=== PATIENT | male | born 1945 | race Caucasian/White ===

== ENCOUNTER → 2018-03-28 10:59 | Outpatient (CLI) | payer MEDICARE, OTHER, SELFPAY ==
--- NOTE | 2018-03-28 11:08 | RAD_ITS ---
STUDY: X-RAY - LUMBAR SPINE REASON FOR EXAM: Male, 72 years old. Pain radiating to left leg TECHNIQUE: Side view(s) of the lumbar spine were obtained. COMPARISON: None FINDINGS: Normal lumbar lordosis. There is no substantial scoliosis. There is a minimal degree of spondylolisthesis at L4-5. Mild degenerative changes of the vertebral bodies with spurring at the endplates. Normal disc space heights. The soft tissue structures are unremarkable. Vascular calcifications. RAD/L/S Spine Min 4 Views IMPRESSION: Degenerative changes of the lumbar spine. Minimal spondylolisthesis at L4-5. Correlate with MRI if clinically indicated. Electronically Signed: Candido Conteh DO at 9:30 EST Tel [phone], Service support ,
--- OUTSIDE RECORDS SUMMARY | 2018-05-23 09:09 | XMS RPT_ITS ---
:1945 Author Organization [facility] Care Team Providers Name Role Phone Elinor Wang Attending Unavailable Estephanie Ramirez Referring Unavailable Toñito Elizabeth Attending Unavailable Toñito Elizabeth Referring Unavailable Priya PATEL-CEstephanie Primary Care Unavailable PROBLEMS PROBLEMS No Problem Records FoundPROCEDURES PROCEDURES No Procedure Records FoundRESULTS RESULTS L/S SPINE MIN 4 Observed: 03/28/2018 Status: F Source: [place]IE[facility] 11:09 AM REPOSITORY [facility] Imaging Services [address] [place] [address] L/S Spine Min 4 Views MR#: [id number] Acct: [id number] Name: CHUCHO AUGUSTIN Rep #: [id number] : 1945 M 72 From: Candido Conteh DO PCP: Estephanie Ramirez Status: REG CLI Study: L/S Spine Min 4 Views Date of Exam: 03/28/18 Exam# [id number] Ordering Dr: Toñito Elizabeth MD STUDY: X-RAY - LUMBAR SPINE REASON FOR EXAM: Male, 72 years old. Pain radiating to left leg TECHNIQUE: Side view(s) of the lumbar spine were obtained. COMPARISON: None FINDINGS: Normal lumbar lordosis. There is no substantial scoliosis. There is a minimal degree of spondylolisthesis at L4-5. Mild degenerative changes of the vertebral bodies with spurring at the endplates. Normal disc space heights. The soft tissue structures are unremarkable. Vascular calcifications. RAD/L/S Spine Min 4 Views IMPRESSION: Degenerative changes of the lumbar spine. Minimal spondylolisthesis at L4-5. Correlate with MRI if clinically indicated. Electronically Signed: Candido Conteh DO at 9:30 EST Tel [phone], Service support , CC: Toñito Elizabeth; Estephanie Powers NUCLEAR STATION OPERATOR-C Visual Designer: Signed OFFICE VISIT REPORT Observed: 02/23/2018 Status: F Source: [place] 5:10 PM [place] [id number] 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 Required: No Accompanied by: Self Allergies No Known Allergies Allergy (Unverified 02/13/18 10:43) Medications ascorbic acid (vitamin C) 500 mg capsule mg PO cap 02/13/18 [History Confirmed 02/13/18] cholecalciferol (vitamin D3) 5,000 unit capsule 5,000 unit PO DAILY 02/13/18 [History Confirmed 02/13/18] glipizide 10 mg tablet 10 mg PO BID 02/13/18 [History Confirmed 02/13/18] insulin glargine (U- 100) 100 unit/mL subcutaneous solution 75 unit SC BID ml 02/13/18 [History Confirmed 02/13/18] levothyroxine 200 mcg tablet 200 mcg PO DAILY 02/13/18 [History Confirmed 02/13/18] meloxicam 7.5 mg tablet 7.5 mg PO DAILY 02/13/18 [History Confirmed 02/13/18] metformin 500 mg tablet 500 mg PO BID 02/13/18 [History Confirmed 02/13/18] metoprolol tartrate 25 mg tablet 25 mg PO BID 02/13/18 [History Confirmed 02/13/18] wlfbvkhg-ugl-plvgi acid 300 mcg-lycopene 600 mcg-lutein 300 mcg tablet 1 tab PO DAILY 02/13/18 [History Confirmed 02/13/18] omeprazole 20 mg capsule,delayed release 20 mg PO DAILY 02/13/18 [History Confirmed 02/13/18] rosuvastatin 10 mg tablet 10 mg PO DAILY 02/13/18 [History Confirmed 02/13/18] PFSH Medical History Arthritis (Acute) Back problem (Acute) H/O malignant neoplasm of thyroid (Acute) Hypothyroidism (Acute) Type 2 diabetes mellitus (Acute) Surgical History H/O thyroidectomy (Acute) Social History Smoking Status: Current every day smoker alcohol intake: current substance use type: does not use Questionnaire Depression Screen PHQ-2/9 PHQ-2 Over the last 2 weeks, how often have you been bothered by any of the following problems? 1. Little interest or pleasure in doing things: nearly every day 2. Feeling down, depressed, or hopeless: not at all Total score: 3 If score is 2 or greater, continue 3. Trouble falling or staying asleep, or sleeping too much: more than half the days 4. Feeling tired or having little energy: more than half the days 5. Poor appetite or overeating: not at all 6. Feeling bad about yourself - or that you are a failure or have let yourself and your family down: not at all 7. Trouble concentrating on things, such as reading the newspaper or watching television: not at all 8. Moving or speaking so slowly that other people could have noticed? - Or the opposite - being so fidgety or restless that you have been moving around a lot more than usual: not at all 9. Thoughts that you would be better off or of hurting yourself in some way: not at all Total score: 7 If you checked off any problems, how difficult have these problems made it for you to do your work, take care of things at home, or get along with other people?: not difficult at all Source: Developed by Drs. Otf Phillips, Jeni Degroot, Efren Burns and colleagues, with an educational oscar from [employer]. Scoring: Total Score Depression Severity Action 1-4 Minimal depression No action needed 5-9 Mild depression Repeat PHQ-9 at follow up 10-14 Moderate depression Make tx plan,consider counseling, fup, prescription HPI HPI Chief Complaint: abnormal thyroid labs Details: CHUCHO AUGUSTIN, is a 72 M who presents to the office today for consult of thyroid. Has a history of hypothyroidism. currently followed at [facility] and referred here. He has seen Dr. Madden in past. Currently patient takes levothyroxine 200mcg daily. Reports he takes on empty stomach and does not take within 4 hours of calcium,iron, vitamins, or antacids. Does not miss any doses. Severity, modifying factors, context, and associated signs and symptoms are as follows: Thyroid pain: No Energy: normal Sleep: awakened refreshed Temp: No intolerance GI: Normal bowel Weight: Flucuates Eyes: No change in vision Memory: unchanged Diaphoresis: Not significant Skin: Dry Hair : Unchanged Neuro: No numbness, tingling or tremors Muscles aches occ. At time of visit: -Pt denies symptoms of hypertensive emergency (CP,SOB,SOLIZ, or blurred vision) and hypotension(dizziness or lightheadedness) -Pt denies symptoms of hypoglycemia ( sweaty, confusion, anxiety, tremor, hunger, palpitations) and hyperglycemia ( polydipsia, polyuria) -Pt denies potential medication adverse effect. ROS Const Constitutional: No anorexia, body ache, chills, fatigue, fever(s), frequent falls, decreased energy, malaise, night sweats, weakness, weight change, sleep problems, abnormal sleep pattern, change in appetite, other, headache(s), snoring or excessive sweating Eyes Eyes: No blurry vision, change in vision, double vision, discharge, dry eyes, bulging eyes, floaters, visual disturbances, eye pain, light sensitivity, spots in vision, tunnel vision or other ENT ENT: No abnormal hearing, ear pain, ear discharge, ear pressure, hearing loss, tinnitus, dizziness/vertigo, balance problems, nosebleed/epistaxis, nasal congestion, nasal obstruction, nose pain, sinus pressure, sinus pain, nasal discharge, post nasal drip, headache(s), facial pain, dental pain, dry mouth, bad breath, hoarseness, lip swelling, mouth lesions, mouth pain, sore throat, tongue swelling, throat swelling, other, difficulty swallowing or neck pain Resp Respiratory: No cough, change in phlegm color, chest congestion, excessive phlegm production, hemoptysis, pain on inspiration, shortness of breath, pain with cough, snoring, stridor, wheezing or other Cardio Cardiology: No chest pain at rest, chest pain with exertion, leg pain with exertion, excessive sweating, shortness of breath, dyspnea on exertion, generalized swelling, irregular heart rhythm, lightheadedness, orthopnea, radiating jaw, neck or arm pain, fast heart rate, slow heart rate, palpitations or other Gastro GI: No abdominal pain, belching, bloating, change in bowel habits, change in stool character, coffee ground emesis, constipation, cramping, diarrhea, heartburn, difficulty swallowing, feeling full early, excessive flatus, incontinent of stools, Vomiting blood/hematemesis, blood in stool, loose stools, Black,tarry stools, nausea/dyspepsia, pain with swallowing, vomiting or other Genitourinary Male: No difficulty urinating, burning urination, painful urination, urinary incontinence, urinary frequency, urinary urgency, urinary hesitancy, urinary retention, blood in urine, Frequent nighttime urination/ nocturia, post void dribbling, suprapubic fullness, side pain, sexual problems, genital lesions, genital itching, erectile dysfunction, penile discharge, difficulty with ejaculations, blood in semen, scrotal swelling, testicle lump, testicle pain or other Musc Musculoskeletal: No abnormal walking, joint pain, back pain, deformity, joint swelling, limited range of motion, loss of height, muscle cramps, muscle weakness, decreased muscle mass, body aches, neck pain, numbness, radiating pain into limb, stiffness, tingling or other Skin Skin: Positive for hair loss; no acne, change in hair, nail changes, boil, change in skin color, dry skin, redness, excessive hair growth, yellowing of the skin, lesions, itching, rash, skin pain, skin ulcer, sores, skin swelling, wounds or other Breast Breast: No other Neuro Neurology: No frequent falls, weakness, visual disturbances, abnormal hearing, headache(s), abnormal walking, numbness or tingling Psych Psychiatric: No abnormal sleep pattern, No change in appetite Endo Endocrine: No fatigue, other or excessive sweating Aller/Imm Allergy/Immunologic: No lip swelling, tongue swelling, throat swelling, wheezing or itchy eyes Exam Const General: comfortable, well groomed Nutritional Appearance: well nourished Orientation: [facility] x3 [facility]: normal to inspection, atraumatic Ears: hearing grossly normal bilaterally Nose: external nose normal Face and sinus: normal facial exam Mouth: oral mucosae normal, moist mucous membranes Teeth and gingiva: dentition normal Eyes General: appearance normal, both eyes and all related structures Conjunctivae: conjunctivae normal Sclera: sclerae normal Cornea: corneas normal Neck Neck: normal visual inspection Neck mass: No Thyroid: thyroid normal Resp Effort AND Inspection: normal respiratory effort, able to speak in complete sentences, symmetric chest movement Auscultation: Bilateral: Clear to Auscultation Cardio Rate: regular rate Rhythm: regular rhythm Heart Sounds: S1 normal, S2 normal GI Inspection: normal to inspection Auscultation: normal bowel sounds Musc Musculoskeletal: No muscle weakness Skin General: dry skin, no rashes or lesions noted Wounds: no wounds Neuro General: oriented x3, moves all extremities Extrem General: no pedal edema, normal capillary refill, full ROM, normal to inspection, no edema Psych Appearance: grossly normal Mental Status: mental status grossly normal Mood: congruent mood Affect: normal affect Speech and Movement: speech and movement normal Attitude: cooperative Thought Process: normal Thought Content: normal Judgment: judgment good Assessment AND Plan Problems 1. Hypothyroidism (acquired) E03.9 Plan TSH 0.01 and free T4 1.61 noted in nov 2017. Patient is sl over replaced. He is ask to reduce his total dose to 6.5 pills weekly of her current levothyroxine 200mcg tablets. will recheck labs in 6 weeks. RTC 1 year Call for results of labs 1-2 days following test completion. Reviewed all patient labs for him and discussed sgnificance of these including diabetes and cholesterol tests. discussed diabetes medications and newer diabetes medications. Answered patient questions. Patient Instructions 1. Follow up in 1 year 3. Discussed importance of regular exercise and recommend starting or continuing a regular exercise program for good health. 4. The patient was encouraged to lose weight for good health 5. The importance of monitoring blood sugar regularly was reviewed. 6. The importance of monitoring the HBA1c level regularly was reviewed. 7. The importance of prper foot care and regularly checking feet to prevent sores and loss of limbs was reviewed. 8. The importance of keeping BP at or below 130/80 to prevent stroke, heart attacks, kidney failure, blindness was reviewed. Spent approximately 30 minutes with patient with over 50% of time spent in discussion and counseling regarding medication adjustment, symptoms and treatment of hypoglycemia, diet adherence, and checking BG before driving. Coding Level of Care Code Off vis,new,level 3 Diagnoses Hypothyroidism (acquired) E03.9 02/23/18 1710 <Electronically signed by Elinor OZUNA> Date Elinor OZUNA Cosigner Signature: Date (if applicable) CC: PROGRESS Observed: 08/19/2017 Status: COMPLETED Source: [facility] 2:04 PM [facility] REPOSITORY HNO ID: [id number] Author: Suni Venegas Service: (none) Author Type: Nurse Practitioner Type: Progress Notes Filed: 08/19/2017 2:24 PM Note Text: Subjective The history is provided by the patient. No second language tutor was used. GERARDO Augustin is a 71 year old male who presents today for CC of sinus pressure and congestion This started 2 weeks ago He is also having dental pain and ear pressure. Symptoms are worsened by lying down He has tried korin without relief. Risk factors none noted. PMH seasonal allergies, flu, occasional sinusitis BP 122/66 Pulse 74 Temp 36.2 ?C (97.2 ?F) (Tympanic) Resp 16 Wt 91.2 kg (201 lb) BMI 30.12 kg/m2 ALLERGIES No Known Allergies ACTIVE PROBLEM LIST Malignant Neoplasm of Thyroid Gland (Hcc) Voice Hoarseness Screening for Colon Cancer Family History Problem Relation Age of Onset - Diabetes Brother - Cancer Brother lung - Heart Brother - Heart Mother Social History Marital status: Single Spouse name: Years of education: Number of children: Social History Main Topics Smoking status: Former Smoker Packs/day: 0.00 Years: 0.00 Smokeless status: Never Used Comment: occa, in the past Alcohol use: Yes Comment: occas. Drug use: No Review of Systems Constitutional: Negative. Negative for chills, fever and malaise/fatigue. HENT: Positive for congestion and sinus pain. Negative for ear pain and sore throat. Respiratory: Positive for cough (from Post nasal drainage). Negative for sputum production, shortness of breath and wheezing. Cardiovascular: Negative for chest pain. Musculoskeletal: Negative for myalgias. Skin: Negative for rash. Neurological: Positive for headaches (sinus). Objective Physical Exam Constitutional: He is well-developed, well-nourished, and in no distress. HENT: Head: Normocephalic and atraumatic. Right Ear: Tympanic membrane, external ear and ear canal normal. Tympanic membrane is not injected, not erythematous, not retracted and not bulging. No middle ear effusion. Left Ear: Tympanic membrane, external ear and ear canal normal. Tympanic membrane is not injected, not erythematous, not retracted and not bulging. No middle ear effusion. Nose: Mucosal edema and rhinorrhea present. Right sinus exhibits maxillary sinus tenderness. Right sinus exhibits no frontal sinus tenderness. Left sinus exhibits maxillary sinus tenderness. Left sinus exhibits no frontal sinus tenderness. Mouth/Throat: Uvula is midline and mucous membranes are normal. Posterior oropharyngeal erythema present. No oropharyngeal exudate, posterior oropharyngeal edema or tonsillar abscesses. Eyes: Conjunctivae and EOM are normal. Pupils are equal, round, and reactive to light. Neck: Normal range of motion. Cardiovascular: Normal rate, regular rhythm and normal heart sounds. Pulmonary/Chest: Effort normal and breath sounds normal. No respiratory distress. He has no wheezes. He has no rales. Lymphadenopathy: Head (right side): No submental, no submandibular, no tonsillar, no preauricular and no posterior auricular adenopathy present. Head (left side): No submental, no submandibular, no tonsillar, no preauricular and no posterior auricular adenopathy present. He has no cervical adenopathy. Right cervical: No posterior cervical adenopathy present. Left cervical: No posterior cervical adenopathy present. Right: No supraclavicular adenopathy present. Left: No supraclavicular adenopathy present. Skin: Skin is warm and dry. Psychiatric: Affect normal. Nursing note and vitals reviewed. ASSESSMENT/PLAN: 1. Acute pansinusitis, recurrence not specified - ICD9: 461.8, ICD10: J01.40 - Will begin treatment with Augmentin 875 mg PO BID for 10 days - The patient should also be given warm salt water gargles, throat lozenges and/or OTC throat spray as needed for the first 5- 7 days of treatment. - Nasal Saline as needed - Supportive care with plenty of fluids, rest, and analgesia prn. - Follow up in one week if symptoms persist or worsen. - -Increase fluid intake. Try to drink at least 8 glasses of non caffeinated fluids daily. --Rest as much as possible. -Do the nasal saline irrigation at least 2 x day to relieve nasal mucous and congestion: brands include Galen Med, Simply saline, Dixie nasal spray, or even the generic store brand one is ok. Take the entire course of antibiotics as prescribed. DO NOT stop taking it early, even if you are feeling better. -Practice good hygiene, wash hands frequently. -Monitor for signs of worsening infection: increased temperature, pain in face, ear pain or headaches or increase in nasal congestion/mucous that is not improving. -Educated patient on side effects of medication. - AMOXICILLIN 875 MG-POTASSIUM CLAVULANATE 125 MG TABLET Diagnosis and treatment plan were discussed and questions were answered to the patient's satisfaction. Pt acknowledged understanding of concepts and follow up plan. Specific signs and symptoms that would indicate the need for higher level of care were discussed in detail warranting prompt ER evaluation. Suni Venegas APRN.GENERAL LEDGER BOOKKEEPER CNOV Observed: 08/19/2017 Status: COMPLETED Source: [facility] 1:45 PM [facility] REPOSITORY Office Visit ([facility]) CHUCHO AUGUSTIN ([id number]) 1945 Date Time Provider Department 08/19/17 1:45 PM SUNI VENEGAS ([place]) [facility] During your visit today, we recorded the following information about you: Temperature Pulse Respiration Blood pressure 97.2 degrees 74/minute 16/minute 122/66 Weight 91.2 kg Suni Venegas APRN.CNP 08/19/2017 2:24 PM Signed Subjective The history is provided by the patient. No second language tutor was used. HPI Chucho Augustin is a 71 year old male who presents today for CC of sinus pressure and congestion This started 2 weeks ago He is also having dental pain and ear pressure. Symptoms are worsened by lying down He has tried korin without relief. Risk factors none noted. PMH seasonal allergies, flu, occasional sinusitis BP 122/66 Pulse 74 Temp 36.2 ?C (97.2 ?F) (Tympanic) Resp 16 Wt 91.2 kg (201 lb) BMI 30.12 kg/m2 ALLERGIES No Known Allergies ACTIVE PROBLEM LIST Malignant Neoplasm of Thyroid Gland (Hcc) Voice Hoarseness Screening for Colon Cancer Family History Problem Relation Age of Onset - Diabetes Brother - Cancer Brother lung - Heart Brother - Heart Mother Social History Marital status: Single Spouse name: Years of education: Number of children: Social History Main Topics Smoking status: Former Smoker Packs/day: 0.00 Years: 0.00 Smokeless status: Never Used Comment: occa, in the past Alcohol use: Yes Comment: occas. Drug use: No Review of Systems Constitutional: Negative. Negative for chills, fever and malaise/fatigue. HENT: Positive for congestion and sinus pain. Negative for ear pain and sore throat. Respiratory: Positive for cough (from Post nasal drainage). Negative for sputum production, shortness of breath and wheezing. Cardiovascular: Negative for chest pain. Musculoskeletal: Negative for myalgias. Skin: Negative for rash. Neurological: Positive for headaches (sinus). Objective Physical Exam Constitutional: He is well-developed, well-nourished, and in no distress. HENT: Head: Normocephalic and atraumatic. Right Ear: Tympanic membrane, external ear and ear canal normal. Tympanic membrane is not injected, not erythematous, not retracted and not bulging. No middle ear effusion. Left Ear: Tympanic membrane, external ear and ear canal normal. Tympanic membrane is not injected, not erythematous, not retracted and not bulging. No middle ear effusion. Nose: Mucosal edema and rhinorrhea present. Right sinus exhibits maxillary sinus tenderness. Right sinus exhibits no frontal sinus tenderness. Left sinus exhibits maxillary sinus tenderness. Left sinus exhibits no frontal sinus tenderness. Mouth/Throat: Uvula is midline and mucous membranes are normal. Posterior oropharyngeal erythema present. No oropharyngeal exudate, posterior oropharyngeal edema or tonsillar abscesses. Eyes: Conjunctivae and EOM are normal. Pupils are equal, round, and reactive to light. Neck: Normal range of motion. Cardiovascular: Normal rate, regular rhythm and normal heart sounds. Pulmonary/Chest: Effort normal and breath sounds normal. No respiratory distress. He has no wheezes. He has no rales. Lymphadenopathy: Head (right side): No submental, no submandibular, no tonsillar, no preauricular and no posterior auricular adenopathy present. Head (left side): No submental, no submandibular, no tonsillar, no preauricular and no posterior auricular adenopathy present. He has no cervical adenopathy. Right cervical: No posterior cervical adenopathy present. Left cervical: No posterior cervical adenopathy present. Right: No supraclavicular adenopathy present. Left: No supraclavicular adenopathy present. Skin: Skin is warm and dry. Psychiatric: Affect normal. Nursing note and vitals reviewed. ASSESSMENT/PLAN: 1. Acute pansinusitis, recurrence not specified - ICD9: 461.8, ICD10: J01.40 - Will begin treatment with Augmentin 875 mg PO BID for 10 days - The patient should also be given warm salt water gargles, throat lozenges and/or OTC throat spray as needed for the first 5-7 days of treatment. - Nasal Saline as needed - Supportive care with plenty of fluids, rest, and analgesia prn. - Follow up in one week if symptoms persist or worsen. - -Increase fluid intake. Try to drink at least 8 glasses of non caffeinated fluids daily. --Rest as much as possible. -Do the nasal saline irrigation at least 2 x day to relieve nasal mucous and congestion: brands include Galen Med, Simply saline, Dixie nasal spray, or even the generic store brand one is ok. Take the entire course of antibiotics as prescribed. DO NOT stop taking it early, even if you are feeling better. -Practice good hygiene, wash hands frequently. -Monitor for signs of worsening infection: increased temperature, pain in face, ear pain or headaches or increase in nasal congestion/mucous that is not improving. -Educated patient on side effects of medication. - AMOXICILLIN 875 MG-POTASSIUM CLAVULANATE 125 MG TABLET Diagnosis and treatment plan were discussed and questions were answered to the patient's satisfaction. Pt acknowledged understanding of concepts and follow up plan. Specific signs and symptoms that would indicate the need for higher level of care were discussed in detail warranting prompt ER evaluation. ANITA Lovett APRN.CNP 08/19/2017 2:09 PM Signed ASSESSMENT/PLAN: 1. Acute pansinusitis, recurrence not specified - ICD9: 461.8, ICD10: J01.40 - Will begin treatment with Augmentin 875 mg PO BID for 10 days - The patient should also be given warm salt water gargles, throat lozenges and/or OTC throat spray as needed for the first 5-7 days of treatment. - Nasal Saline as needed - Supportive care with plenty of fluids, rest, and analgesia prn. - Follow up in one week if symptoms persist or worsen. - -Increase fluid intake. Try to drink at least 8 glasses of non caffeinated fluids daily. --Rest as much as possible. -Do the nasal saline irrigation at least 2 x day to relieve nasal mucous and congestion: brands include Galen Med, Simply saline, Dixie nasal spray, or even the generic store brand one is ok. Take the entire course of antibiotics as prescribed. DO NOT stop taking it early, even if you are feeling better. -Practice good hygiene, wash hands frequently. -Monitor for signs of worsening infection: increased temperature, pain in face, ear pain or headaches or increase in nasal congestion/mucous that is not improving. -Educated patient on side effects of medication. - AMOXICILLIN 875 MG-POTASSIUM CLAVULANATE 125 MG TABLET Referring Provider: SELF [200] Allergies As of Date: 08/19/2017 (No Known Allergies) Date Reviewed: 08/19/2017 Reviewed by: Suni Venegas - Fully Assessed Reason for Visit: Sinus Problem [99] Cmt: sinus pressure and drainage x 1 week Primary Visit Diagnosis:Acute pansinusitis, recurrence not specified [J01.40] Order(s):amoxicillin-clavulanic acid (AUGMENTIN) 875-125 mg per tabletTake 1 tablet by mouth twice daily for 10 days.Disp: 20 tabletRfl: 0 Prescriptions as of 08/19/2017 Sig: MOBIC ORAL Take by mouth. CRESTOR ORAL Take by mouth. DYAZIDE 37.5 MG-25 MG CAPSULE Take one(1) tablet daily. LEVOTHYROXINE 175 MCG TABLET Take one(1) tablet daily. CENTRUM SILVER TABLET Take one(1) tablet daily. METFORMIN 500 MG TABLET Take one(1) tablet twice jasvir* GLIPIZIDE 5 MG TABLET one tab twice a day METOPROLOL TARTRATE 25 MG TAB* Take one(1) tablet twice jasvir* CELEBREX 200 MG CAPSULE Take one(1) capsule daily. COMPOUNDED PRESCRIPTION vit. 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 Acute pansinusitis, recurrence not specified - ICD9: 461.8, ICD10: J01.40 - Will begin treatment with Augmentin 875 mg PO BID for 10 days - The patient should also be given warm salt water gargles, throat lozenges and/or OTC throat spray as needed for the first 5-7 days of treatment. - Nasal Saline as needed - Supportive care with plenty of fluids, rest, and analgesia prn. - Follow up in one week if symptoms persist or worsen. - -Increase fluid intake. Try to drink at least 8 glasses of non caffeinated fluids daily. --Rest as much as possible. -Do the nasal saline irrigation at least 2 x day to relieve nasal mucous and congestion: brands include Galen Med, Simply saline, Dixie nasal spray, or even the generic store brand one is ok. Take the entire course of antibiotics as prescribed. DO NOT stop taking it early, even if you are feeling better. -Practice good hygiene, wash hands frequently. -Monitor for signs of worsening infection: increased temperature, pain in face, ear pain or headaches or increase in nasal congestion/mucous that is not improving. -Educated patient on side effects of medication. - AMOXICILLIN 875 MG-POTASSIUM CLAVULANATE 125 MG TABLET Prescriptions ordered this encounter Disp Refills Start End AMOXICILLIN 875 MG-POTASSIUM CLAVULA* 20 t* 0 08/19/2017 08/29/2017 Route: ORAL Sig: Take 1 tablet by mouth twice daily for 10 days. Encounter Status:Closed by SUNI VENEGAS CNP on 08/19/17 ALLERGIES ALLERGIES DATE TYPE / CODE NAME / CODE REACTION SEVERITY SOURCE 02/13/2018 Drug No Known Unknown [facility] Allergy/416 Allergies/[id number] Hospital 029413(SNOM 0388(RXNORM) Repository ED CT) Drug NO KNOWN [facility] Class/36498 ALLERGIES Main [place] 1003(SNOMED Repository CT) ENCOUNTERS ENCOUNTERS ADMIT/DISCHARGE ACCOUNT ADMITTING ENCOUNTER LOCATION SOURCE NUMBER CLASS 03/28/2018 [id number] Ambulatory [facility] ing:MTRAD Repository 02/13/2018/02/14/[id number] [facility] [address] Repository 08/19/2017/08/21/19 [id number] Ambulatory [address] Repository PAYERS PAYERS ENCOUNTER GUARANTOR PAYER SUBSCRIBER SOURCE 03/28/2018 CHUCHO L Primary CHUCHO L [place] [id number] RIFFEL Insurance:MEDICARE BAKERDOB: [place] PART A [facility] [id number] Hospital [address]Thb: (330) Number: Repository [phone] ) [id number] Date:2018-03-28 03/28/2018 Secondary CHUCHO L [place] Insurance:MUTUAL OF BAKERDOB: [facility] Number: [id number] Hospital [id number] Repository Date:8767-48-93LKTHNL OF [place] ELENI BAH [address]HI: 03/28/2018 Tertiary NOT GIVENUNK [place] Insurance:SELF PAY [facility] Number: Effective Repository Date:2018-03-28 02/13/2018 CHUCHO L Primary CHUCHO L [place] [id number] RIFFEL Insurance:MEDICARE BAKERDOB: [facility] [place] PART A BPolicy [id number] Hospital [address]Ozr: (330) Number: Repository [phone] ( [id number] Date:2018-01-01 02/13/2018 Secondary CHUCHO Maldonado Insurance:MUTUAL OF BAKERDOB: [facility] Number: [id number] Hospital [id number] Repository Date:1025-56-21RKJHDS [place], [place] [address]XE: 02/13/2018 Tertiary NOT GIVENUNK [place] Insurance:SELF PAY [facility] Number: Effective Repository Date:2018-02-13
== END ==
PROVIDERS: Family Provider Nurse Practitioner; PCP Nurse Practitioner; Referring Provider Anesthesiology Pain Medicine; Visit Provider Anesthesiology Pain Medicine
DX: M54.5 Low back pain (principal); M79.605 Pain in left leg
CPT/HCPCS: 72110

== ENCOUNTER → 2018-09-18 09:49 | Outpatient (CLI) | payer MEDICARE, OTHER, SELFPAY ==
[2018-02-13 10:57] VITALS: BMI 30.1
--- NOTE | 2018-09-18 09:56 | RAD_ITS ---
STUDY: X-RAY - THORACIC SPINE REASON FOR EXAM: Male, 72 years old. Thoracic pain. TECHNIQUE: 2 view(s) of the thoracic spine were obtained. COMPARISON: None. FINDINGS: Normal kyphosis of the thoracic spine. There is no substantial scoliosis. There is demineralization of the thoracic spine with endplate spondylosis. Mild disc space loss throughout is noted with no aafi-ab-rbhc articulation. Diffuse demineralization is present. The soft tissue structures are unremarkable. RAD/Thoracic Spine 3 Views IMPRESSION: Demineralization with multilevel endplate degenerative change and mild decreased disc space. No evidence of malalignment or compression deformity. Electronically Signed: Masood Dean DO at 9:16 EDT , Service support ,
== END ==
PROVIDERS: Referring Provider Anesthesiology Pain Medicine; Visit Provider Anesthesiology Pain Medicine
DX: M54.6 Pain in thoracic spine (principal)
CPT/HCPCS: 72072

== ENCOUNTER → 2018-09-25 06:51 | Outpatient (CLI) | payer MEDICARE, OTHER, SELFPAY ==
[2018-02-13 10:57] VITALS: BMI 30.1
--- NOTE | 2018-09-25 07:00 | RAD_ITS ---
HISTORY: clearance. hx metal in rt orbit x 1 yr ago EXAMINATION/TECHNIQUE: XR Orbits Clearance FB: 2 views COMPARISON: None FINDINGS: 2 views of the orbits obtained for MR clearance. No radiopaque foreign body seen. No bony abnormality seen. As visualized, the paranasal sinuses appear clear. Dental amalgam fillings noted. RAD/Orbits for Foreign Body IMPRESSION: Negative exam. No orbital foreign body seen. at 0804 Reported and signed by: Bryan Rodriguez MD Electronically Signed: Bryan Rodriguez, at 8:03 EDT Tel , Service support ,
--- NOTE | 2018-09-25 07:17 | MRI_ITS ---
HISTORY: radiculopathy, left leg/hip pain , numbness,tingling EXAM/TECHNIQUE: MR Spine Lumbar W/O Contrast: Multiplanar, multisequence. 1.5 Aidee. COMPARISON: 07/27/10 MRI lumbar spine. FINDINGS: # of images incl. paperwork: 123 No acute fracture or concerning osseous lesions. Unchanged incidental L3 vertebral body hemangioma. 3 mm degenerative anterolisthesis of L4 on L5 which is new compared to prior. Alignment otherwise anatomic. Conus terminates at the level of the L2 inferior endplate with normal contour and signal. The thecal sac terminates at the level of the mid S2 vertebra. No acute findings in the paraspinal soft tissues. Bilateral renal cysts partially visible. At L1-2, disc height is preserved. Small L1 inferior endplate Schmorl's node unchanged. Mild bilateral facet degeneration. No significant spinal canal or foraminal narrowing. At L2-3, disc height is preserved. Small L2 inferior endplate Schmorl's node. Small disc bulge and mild bilateral facet degeneration cause no significant narrowing. At L3-4, disc height is preserved and the endplates are unremarkable. Small diffuse disc bulge and mild bilateral facet degeneration cause only mild narrowing with no evidence of nerve root impingement. At L4-5, bilateral facet degeneration has progressed compared to prior, with interval development of 3 mm degenerative anterolisthesis and unroofing of the disc. Very small Schmorl's node superior endplate L4 unchanged. A small left lateral disc extrusion with cephalad migration causes focal moderate to severe narrowing of the left subarticular zone, with moderate mass-effect upon the traversing left L5 nerve root. Disc extends into and moderately narrows the left foramen, with mild mass-effect upon the exiting left L4 nerve root in the foramen. Only mild narrowing of the right subarticular zone and right foramen. At L5-S1, disc spaces preserved and the endplates are unremarkable. Mild bilateral facet degeneration causes no significant narrowing. MRI/Spine Lumbar (Routine) IMPRESSION: At L4-5, bilateral facet degeneration has progressed compared to prior, with interval development of 3 mm degenerative anterolisthesis and unroofing of the disc. A small left lateral disc extrusion with cephalad migration causes focal moderate to severe narrowing of the left subarticular zone, with moderate mass-effect upon the traversing left L5 nerve root. Disc extends into and moderately narrows the left foramen, with mild mass-effect upon the exiting left L4 nerve root in the foramen. If there is left L4 or L5 radiculopathy, this level is the most likely etiology. at 0941 Reported and signed by: Ramez Muniz MD Electronically Signed: Ramez Muniz, at 9:40 EDT Tel , Service support ,
== END ==
PROVIDERS: Referring Provider Anesthesiology Pain Medicine; Visit Provider Anesthesiology Pain Medicine
DX: M54.17 Radiculopathy, lumbosacral region (principal)
CPT/HCPCS: 70030; 72148

== ENCOUNTER 2020-02-22 12:55 | Inpatient (IN) | payer MEDICARE, OTHER, SELFPAY ==
[2020-02-22 12:56] VITALS: BP 129/68; PULSE 89; RESP 18; TEMP 37.5; O2SAT 96; BMI 25.8
--- NOTE | 2020-02-22 13:20 | CT_ITS ---
STUDY: CT ABDOMEN AND PELVIS WITH CONTRAST REASON FOR EXAM: Male, 74 years old. ABD PAIN X 3 DAYS. RECENTLY ADMITTED FOR SBO DISCHARGED YESTERDAY. RADIATION DOSAGE (If Supplied By Facility): CTDIvol = ( 14.88 ) mGy, DLP = ( 905.94 ) mGycm TECHNIQUE: Transaxial images were obtained from the dome of the diaphragm to the symphysis pubis with oral contrast. Oral and amp; IV Gastrografin and amp; 100mL Isovue-370 was administered. Sagittal and coronal images were reconstructed. Individualized dose optimization techniques were used for this CT. COMPARISON: None. FINDINGS: Mild degree of increased markings at the lung bases suggestive of scarring and probable atelectasis. Calcified subcarinal lymph nodes. Coronary artery calcifications. Normal liver. The patient is status post cholecystectomy. Minimally dilated central intrahepatic biliary ducts. Normal spleen. There is diffuse atrophy of the pancreas. Normal bilateral adrenal glands. There is a 1.5 cm cyst in the upper pole of the left kidney. There is a 8 mm cyst in the upper pole of the left kidney as well as a 3.3 cm cyst in the lower pole of the left kidney. 1.2 cm cyst in the lower pole aspect of the right kidney. Normal visualized stomach. There are dilated loops of the small intestine with a non-distended colon consistent with a small bowel obstruction. The transition point is in the distal ileum. There are multiple colonic diverticula consistent with diverticulosis. There is edema of the ascending colon. Barium is seen within the nondistended appendix. Normal abdominal aorta. Normal inferior vena cava. Normal retroperitoneum. Normal urinary bladder. Small amount of free fluid is seen in the right lower quadrant. Normal abdominal wall. There are diffuse degenerative changes of the visualized lumbar spine. CT/Abdomen/Pelvis WITH Contrast IMPRESSION: Small bowel obstruction. The transition point is in the distal portion of the ileum. Thickening of the descending colon. Electronically Signed: Donaldo Garcia, at 15:47 EDT , Service support ,
[2020-02-22 13:27] LABS: Absolute Lymphocyte Count 0.87 X10^3/uL (0.83-4.51); Absolute Neutrophil Count 7.6 X10^3/uL (2.0-7.7); Basophil# 0.02 X10^3/uL; Basophil% 0.2 % (0-1); Eosinophil# 0.04 X10^3/uL; Eosinophils% 0.4 % (0-5); Hematocrit 43.6 % (40-54); Hemoglobin 14.6 g/dL (13.0-16.5); Lymphocyte # 0.87 X10^3/ul (4.0); Lymphocyte % 8.5 % (19-41); Mean Corp Hgb Conc 33.5 g/dL (32-36); Mean Corpuscular Hgb 30.2 pg (27.0-32.0); Mean Corpuscular Volume 90.3 fL (80-94); Mean Platelet Vol. 10.9 fl (6.2-12.0); Monocyte# 1.71 X10^3/uL; Monocyte% 16.7 % (0-10); NRBC Flagged by Analyzer 0 % (0-5); Neutrophil % 73.9 % (47-70); POSITIVE DIFFERENTIAL YES; Platelet Count 253 K/mm3 (150-450); RBC Distribution Width CV 12.9 % (11.6-14.6); RBC Distribution Width SD 42.5 fl (35.1-43.9); Red Blood Count 4.83 M/mm3 (4.6-6.2); White Blood Count 10.3 K/mm3 (4.4-11.0)
[2020-02-22 13:30] LABS: Differential Indicated SCAN CRITERIA MET
[2020-02-22] MEDS: 0.9% Normal Saline 1,000 ML 125 ML IV ×2 (13:31→17:25)
[2020-02-22] MEDS: Morphine 4 MG/ML Syringe IV (13:32)
[2020-02-22] MEDS: Ondansetron 4 MG/2 ML Vial IV (13:32)
[2020-02-22 13:44] LABS: AST(SGOT) 16 U/L (15-37); Alanine Aminotransfer ALT/SGPT 14 U/L (16-61); Albumin, Serum 3.3 g/dL (3.2-5.0); Alkaline Phosphatase 104 U/L (45-117); Anion Gap 11 (5-15); BUN 48 mg/dL (7-18); BUN/Creat Ratio 34.8 RATIO (10-20); Bilirubin, Direct 0.33 mg/dL (0.00-0.30); Chloride 102 mmol/L (98-107); Creatinine, Serum 1.38 mg/dL (0.70-1.30); EST Glomerular Filtration Rate 53 mL/min (>60); Est Glom Filt Rate - Afr Amer 65 mL/min (>60); Estimated Creatinine Clearance 44.75 ml/min; Globulin 3.7 g/dL (2.2-4.2); Glucose 190 mg/dL (74-106); Lipase 26 U/L (73-393); Potassium 4.5 mmol/L (3.5-5.1); Sodium Level 136 mmol/L (136-145)
[2020-02-22 13:50] LABS: Differential Comment SCANNED
--- NOTE | 2020-02-22 14:40 | ED.DCSUM_ITS ---
- ER Visit Summary Date of Service: 02/22/20 Chief Complaint: Abdominal pain History of Present Illness: The patient is a 74 M who presents with abdominal pain, nausea vomiting. Started 3 days ago. He was in [place] and was admitted to the hospital there [place] and left the hospital yesterday. He was diagnosed with a small bowel obstruction and had an NG tube in place. He was discharged to home and came back to [place] but was still having symptoms so he came directly here. He states he did have some flatus yesterday but no significant bowel movements. No diarrhea. He has never had this before. He is a diabetic but no other health issues. Physical Examination: Vital signs reviewed. HEENT exam unremarkable. Heart is regular rate and rhythm without murmurs. Lungs are clear to auscultation. Abdomen is soft with diffuse tenderness to palpation. There is no guarding or rebound tenderness. Extremities reveal no edema. Skin exam normal. Neurologic exam normal. Test Results: Laboratory studies show a creatinine 1.3, BUN of 48. His direct bilirubin 0.33. ALT 14. CAT scan of the abdomen pelvis with p.o. and IV contrast is pending Emergency Department Course and Treatment: The patient was discussed with Dr. Dumont. He evaluated the patient emergency department. We are awaiting imaging studies. I will attempt to get laboratory studies and imaging studies from the outside hospital. He was medicated with morphine and Zofran. He will be signed at the oncoming physician for further disposition Treatment Plan: [] Disposition: Pending Impression: Abdominal pain, nausea and vomiting This note was generated with EyeQuant dictation software. It may contain incorrect words, spelling, and punctuation that were not noted in review of the chart prior to signing ED Disposition - Plan for ED Patient: [facility] [Primary Care Provider] -
--- NOTE | 2020-02-22 14:55 | NURSING ---
TRYING TO REACH [facility] IN [place], [place] [phone]
--- NOTE | 2020-02-22 15:16 | NURSING ---
FAXED RELEASE OF INFO TO [place]. FAX WENT THROUGH
--- NOTE | 2020-02-22 15:31 | NURSING ---
RECEIVING CHART FROM OUT OF STATE
--- NOTE | 2020-02-22 16:05 | RAD_ITS ---
STUDY: X-RAY - ABDOMEN/PELVIS REASON FOR EXAM: Male, 74 years old. NG PLACEMENT TECHNIQUE: Frontal view COMPARISON: None. FINDINGS: Normal visualized lung bases. Probable small bowel ileus versus obstruction. Follow-up is needed. Nasogastric tube extending into the stomach. There is no demonstrated free abdominal air. Normal soft tissue structures. Degenerative vertebral changes. RAD/Abdomen Single View (Portable) IMPRESSION: Diffuse ileus versus obstruction. Follow-up is needed. Electronically Signed: Candido Conteh DO at 16:17 EDT Tel [phone], Service support ,
[2020-02-22 16:20] VITALS: BP 107/35; PULSE 71; RESP 18; TEMP 37.5; O2SAT 96
--- NOTE | 2020-02-22 16:27 | NURSING ---
MED SURG SBO ANURADHA
--- NOTE | 2020-02-22 16:44 | NURSING ---
CALLED [facility]. LET JERRY, IN BED CONTROL, KNOW PATIENT WAS BEING ADMITTED AND GAVE HIM THE INFO HE ASKED FOR
[2020-02-22 16:53] VITALS: O2SAT 88
[2020-02-22 16:59] VITALS: BMI 26.3
[2020-02-22 17:00] VITALS: BP 107/58; PULSE 70; RESP 16; TEMP 37.8; O2SAT 95
[2020-02-22 17:06] VITALS: BMI 26.3
--- NOTE | 2020-02-22 17:14 | HP.PCM_ITS ---
Problem List (1) SBO (small bowel obstruction) Status: Acute History of Present Illness Date of Admission: 02/22/20 The patient is a 74 year old M presents with nausea vomiting and abdominal pain. The patient was recently admitted to an outside hospital for 2 days with small bowel obstruction. According to the records he was tolerating a diet and having no pain and passing flatus and he was discharged. This morning he began to have nausea and vomiting and began having more abdominal pain. The patient is not having any fevers or chills. The patient has had laparoscopic cholecystectomy in the past. He has not had any bowel obstructions besides these 2 episodes. Patient reports he had a bowel movement yesterday. Past Medical History Past Medical History (Chronic Problems): Chronic Problems (Last Updated 02/13/18 @ 10:50 by Raquel Hayden) Hypothyroidism (acquired) (Chronic) Medical History: Medical History (Last Updated 02/13/18 @ 10:50 by Raquel Hayden) Arthritis M19.90 Back problem M53.9 H/O malignant neoplasm of thyroid Z85.850 Hypothyroidism E03.9 Type 2 diabetes mellitus E11.9 Allergies No Known Allergies Allergy (Unverified 02/22/20 13:00) Home Medications: Ambulatory Orders Medication Instructions Recorded ascorbic acid (vitamin C) 500 mg 500 mg PO DAILY cap 02/13/18 capsule cholecalciferol (vitamin D3) 125 5,000 unit PO DAILY 02/13/18 mcg (5,000 unit) capsule glipizide 10 mg tablet 10 mg PO DAILY 02/13/18 insulin glargine 100 unit/mL 20 unit SC DAILY ml 02/13/18 subcutaneous solution levothyroxine 200 mcg tablet 225 mcg PO DAILY 02/13/18 meloxicam 7.5 mg tablet 7.5 mg PO BID 02/13/18 metformin 500 mg tablet 500 mg PO BID 02/13/18 metoprolol tartrate 25 mg tablet 25 mg PO BID 02/13/18 bigjlxie-jws-aoidq acid 300 1 tab PO DAILY 02/13/18 mcg-lycopene 600 mcg-lutein 300 mcg tablet omeprazole 20 mg capsule,delayed 20 mg PO DAILY 02/13/18 release rosuvastatin 10 mg tablet 10 mg PO DAILY 02/13/18 Surgical History: Surgical History (Last Updated 02/13/18 @ 10:50 by Raquel Hayden) H/O thyroidectomy Z98.890 Smoking Status: Current every day smoker Tobacco Use: Cigarettes Review of Systems Constitutional: Denies: Anorexia, Fever HEENT: Denies: Difficulty Swallowing Cardiovascular: Denies: Chest Pain Respiratory: Denies: Cough, Shortness of Breath Gastrointestinal: Reports: Abdominal Pain, Nausea, Vomiting. Denies: Hematemesis, Hematochezia Genitourinary: Denies: Dysuria Neurological: Denies: Balance problems Endocrine: Denies: Change in Body Habitus Hematologic/ Lymphatic: Denies: Anemia VTE Information - Inpt Only VTE Present on Admission: No VTE Mechan Device Prophylaxis: SCD's - Physical Exam Vitals/I&O's: Vital Signs Temp Pulse Resp BP Pulse Ox 99.5 F H 71 18 107/35 L 96 02/22/20 16:20 02/22/20 16:20 02/22/20 16:20 02/22/20 16:20 02/22/20 16:20 Oxygen Delivery Method Room Air Weight: 173 lb 3.2 oz Body Mass Index (BMI) 26.3 General: Alert, Oriented x3 Neck: No JVD Lungs: Normal air movement Abdomen: Soft, Distended, Tender - Tender in the right lower quadrant Skin: No breakdown Musculoskeletal: No Tenderness to Palpation of Joints or Extremities Neurological: Cranial nerves II-XII grossly intact Psych/Mental Status: Normal Affect Laboratory Results 02/22/20 13:20: WBC 10.3, RBC 4.83, Hgb 14.6, Hct 43.6, MCV 90.3, MCH 30.2, MCHC 33.5, RDW Std Deviation 42.5, RDW Coeff of Natalia 12.9, Plt Count 253, MPV 10.9, Immature Gran % (Auto) 0.300, Neut % (Auto) 73.9 H, Lymph % (Auto) 8.5 L, [place] % (Auto) 16.7 H, Eos % (Auto) 0.4, Baso % (Auto) 0.2, Absolute Neuts (auto) 7.6, Absolute Lymphs (auto) 0.87, Nucleated RBC % 0, Differential Comment SCANNED 02/22/20 13:20: Sodium 136, Potassium 4.5, Chloride 102, Carbon Dioxide 23.0, Anion Gap 11, BUN 48 H, Creatinine 1.38 H, Estim Creat Clear Calc 44.75, Est GFR (MDRD) Af Amer 65, Est GFR (MDRD) Non-Af 53 L, BUN/Creatinine Ratio 34.8 H, Glucose 190 H, Calcium 9.0, Total Bilirubin 0.90, Direct Bilirubin 0.33 H, AST 16, ALT 14 L, Alkaline Phosphatase 104, Total Protein 7.0, Albumin 3.3, Globulin 3.7, Lipase 26 L Clinical Impression(s) from Imaging Studies Abdomen/Pelvis CT 02/22/20 13:20 IMPRESSION: Small bowel obstruction. The transition point is in the distal portion of the ileum. Thickening of the descending colon. Electronically Signed: Donaldo Garcia, at 15:47 EDT , Service support , KUB X-Ray 02/22/20 16:05 IMPRESSION: Diffuse ileus versus obstruction. Follow-up is needed. Electronically Signed: Candido Conteh DO at 16:17 EDT Tel [phone], Service support , Current Medications Sodium Chloride () 1,000 mls @ 125 mls/hr IV .Q8H [facility] Last Admin: 02/22/20 13:31 Dose: 125 mls/hr Documented by: Sodium Chloride () 1,000 mls @ 125 mls/hr IV .Q8H [facility] Influenza Virus Vaccine Quadrival (Influenza Vaccine (6mos+)/Pf 0.5 Ml Syringe) 0.5 ml IM .ONCE ONE Stop: 02/23/20 10:01 Morphine Sulfate (Morphine 2 Mg/Ml Syringe) 2 - 4 mg IV Q2H PRN PRN PRN Reason: Pain Score 4-10 Morphine Sulfate (Morphine 4 Mg/Ml Syringe) 2 - 4 mg IV Q2H PRN PRN PRN Reason: Pain Score 4-10 Ondansetron HCl (Ondansetron 4 Mg/2 Ml Vial) 4 mg IV Q6H PRN PRN PRN Reason: NAUSEA Pantoprazole Sodium (Pantoprazole Sodium 20 Mg Tablet) 20 mg PO BID [facility] Assessment/Plan All Active Problems (Last Updated 02/13/18 @ 10:50 by Raquel Hayden) SBO (small bowel obstruction) (Acute) 74-year-old male with small bowel obstruction 1. The patient had a repeat CT scan done today with oral and IV contrast which showed a small bowel obstruction of the distal terminal ileum. The transition point appears to be in the right upper quadrant where his gallbladder surgery was. The patient is not having any peritoneal signs and his white count is normal. I placed an NG tube in the emergency room and received about 300 cc of bilious material. I will admit the patient to the floor and start IV fluids for rehydration and allow small bowel decompression via NG tube. I do recommend the patient have exploratory laparoscopy but I believe after 24 hours of decompression he will have a better chance of having successful laparoscopy. I plan on adding the patient on for tomorrow for a laparoscopic exploration with possible bowel resection. I discussed this with the patient in detail. I discussed the risks including not limited to bleeding, infection, injury to maurice wel or other underlying organs. The patient understands the risks and is willing to proceed. Steve Dumont MD Pager: [facility] [address] [place] [address] [address] [place] [address] Office:
[2020-02-22] MEDS: 0.9% Saline Lock 10 ML Syringe IV (17:27)
[2020-02-22 18:36] LABS: Bedside Glucose 110 mg/dL (70-110)
[2020-02-22 21:27] VITALS: BP 111/60; PULSE 60; RESP 18; TEMP 36.6; O2SAT 98
[2020-02-22 21:32] VITALS: PULSE 60
[2020-02-22 23:46] LABS: Bedside Glucose 97 mg/dL (70-110)
[2020-02-23] VITALS (12 sets, daily range): BP systolic 125–178; BP diastolic 54–75; PULSE 66–88; RESP 16–18; TEMP 36.7–37.2; O2SAT 92–98; BMI 26.3
[2020-02-23] MEDS: 0.9% Normal Saline 1,000 ML 125 ML IV ×3 (01:58→22:56)
[2020-02-23 05:57] LABS: Absolute Lymphocyte Count 1.11 X10^3/uL (0.83-4.51); Basophil# 0.05 X10^3/uL; Basophil% 0.7 % (0-1); Eosinophil# 0.08 X10^3/uL; Eosinophils% 1.1 % (0-5); Hematocrit 43.5 % (40-54); Hemoglobin 14.3 g/dL (13.0-16.5); Lymphocyte # 1.11 X10^3/ul (4.0); Lymphocyte % 14.7 % (19-41); Mean Corp Hgb Conc 32.9 g/dL (32-36); Mean Corpuscular Hgb 30.2 pg (27.0-32.0); Mean Corpuscular Volume 91.8 fL (80-94); Mean Platelet Vol. 10.8 fl (6.2-12.0); Monocyte# 1.28 X10^3/uL; NRBC Flagged by Analyzer 0 % (0-5); Neutrophil # 4.99 X10^3/uL (2.7-7.7); Neutrophil % 66.1 % (47-70); Platelet Count 247 K/mm3 (150-450); RBC Distribution Width SD 43.8 fl (35.1-43.9); Red Blood Count 4.74 M/mm3 (4.6-6.2); White Blood Count 7.5 K/mm3 (4.4-11.0)
[2020-02-23 06:06] LABS: Bedside Glucose 105 mg/dL (70-110)
[2020-02-23 07:11] LABS: Anion Gap 9 (5-15); BUN 48 mg/dL (7-18); BUN/Creat Ratio 40.3 RATIO (10-20); Calcium,Total 8.5 mg/dL (8.5-10.1); Chloride 106 mmol/L (98-107); Creatinine, Serum 1.19 mg/dL (0.70-1.30); EST Glomerular Filtration Rate 63 mL/min (>60); Est Glom Filt Rate - Afr Amer 77 mL/min (>60); Estimated Creatinine Clearance 51.89 ml/min; Glucose 94 mg/dL (74-106); Sodium Level 137 mmol/L (136-145); Thyroid Stim Hormone (TSH) < 0.01 uIU/mL (0.358-3.74)
--- NOTE | 2020-02-23 07:14 | PCM.PN.SRG ---
Patient Problems: Active and Suspected Problems (Last Updated 02/13/18 @ 10:50 by Raquel Hayden) SBO (small bowel obstruction) (Acute) Subjective: Patient reports he is placing some flatus this morning. His abdominal pain is lessened. - Physical Exam Vitals/I&O's: Vital Signs Temp Pulse Resp BP Pulse Ox 98.9 F 79 16 125/68 H 93 02/23/20 01:59 02/23/20 01:59 02/23/20 01:59 02/23/20 01:59 02/23/20 01:59 Oxygen Flow Rate (L/min) 2 Oxygen Delivery Method Room Air Weight: 173 lb 3.2 oz Body Mass Index (BMI) 26.3 Intake and Output for Last 24 Hours 02/21/20 02/22/20 02/23/20 23:59 23:59 23:59 Intake Total 1247.50 / 1247.50 485.42 / 485.42 Output Total 1200 / 1200 1000 / 1000 Balance 47.50 / 47.50 -514.58 / -514.58 General: Alert, Oriented x3 Neck: No JVD Lungs: Normal air movement Abdomen: Soft, Non Tender, Distended Skin: No rashes Musculoskeletal: No Muscle Wasting Neurological: Cranial nerves II-XII grossly intact Laboratory Results 02/22/20 13:20: WBC 10.3, RBC 4.83, Hgb 14.6, Hct 43.6, MCV 90.3, MCH 30.2, MCHC 33.5, RDW Std Deviation 42.5, RDW Coeff of Natalia 12.9, Plt Count 253, MPV 10.9, Immature Gran % (Auto) 0.300, Neut % (Auto) 73.9 H, Lymph % (Auto) 8.5 L, [place] % (Auto) 16.7 H, Eos % (Auto) 0.4, Baso % (Auto) 0.2, Absolute Neuts (auto) 7.6, Absolute Lymphs (auto) 0.87, Nucleated RBC % 0, Differential Comment SCANNED 02/22/20 13:20: Sodium 136, Potassium 4.5, Chloride 102, Carbon Dioxide 23.0, Anion Gap 11, BUN 48 H, Creatinine 1.38 H, Estim Creat Clear Calc 44.75, Est GFR (MDRD) Af Amer 65, Est GFR (MDRD) Non-Af 53 L, BUN/Creatinine Ratio 34.8 H, Glucose 190 H, Calcium 9.0, Total Bilirubin 0.90, Direct Bilirubin 0.33 H, AST 16, ALT 14 L, Alkaline Phosphatase 104, Total Protein 7.0, Albumin 3.3, Globulin 3.7, Lipase 26 L 02/22/20 18:31: POC Glucose 110 02/22/20 23:41: POC Glucose 97 02/23/20 05:35: POC Glucose 105 02/23/20 05:45: WBC 7.5, RBC 4.74, Hgb 14.3, Hct 43.5, MCV 91.8, MCH 30.2, MCHC 32.9, RDW Std Deviation 43.8, RDW Coeff of Natalia 13.0, Plt Count 247, MPV 10.8, Immature Gran % (Auto) 0.400, Neut % (Auto) 66.1, Lymph % (Auto) 14.7 L, [place] % (Auto) 17.0 H, Eos % (Auto) 1.1, Baso % (Auto) 0.7, Absolute Neuts (auto) 5.0, Absolute Lymphs (auto) 1.11, Nucleated RBC % 0 02/23/20 05:45: Sodium 137, Potassium 4.0, Chloride 106, Carbon Dioxide 22.0, Anion Gap 9, BUN 48 H, Creatinine 1.19, Estim Creat Clear Calc 51.89, Est GFR (MDRD) Af Amer 77, Est GFR (MDRD) Non-Af 63, BUN/Creatinine Ratio 40.3 H, Glucose 94, Calcium 8.5, TSH < 0.01 L 02/23/20 05:45: Hemoglobin A1c Pending Clinical Impression(s) from Imaging Studies Abdomen/Pelvis CT 02/22/20 13:20 IMPRESSION: Small bowel obstruction. The transition point is in the distal portion of the ileum. Thickening of the descending colon. Electronically Signed: Donaldo Garcia, at 15:47 EDT , Service support , KUB X-Ray 02/22/20 16:05 IMPRESSION: Diffuse ileus versus obstruction. Follow-up is needed. Electronically Signed: Candido Conteh DO at 16:17 EDT Tel [phone], Service support , Current Medications Dextrose (Dextrose 50%-Water 25 Gm/50 Ml Disp.Syrin) 0 gm IV X1 PRN; Protocol PRN Reason: Hypoglycemia Glucagon (Glucagon 1 Mg/Ml Syringe) 1 mg IM .X1 PRN PRN Reason: Hypoglycemia Sodium Chloride () 1,000 mls @ 125 mls/hr IV .Q8H [facility] Last Admin: 02/23/20 01:58 Dose: 125 mls/hr Documented by: Sodium Chloride () 250 mls @ 15 mls/hr IV .[id number] PRN PRN Reason: Saline Flush Sodium Chloride () 250 mls @ 15 mls/hr IV .[id number] PRN PRN Reason: Additional IVPB Infusion Pantoprazole Sodium 40 mg/ (Sodium Chloride) 110 mls @ 330 mls/hr IV Q12 [facility] Last Infusion: 02/22/20 21:52 Dose: Infused Documented by: Cefotetan Disodium 2 gm/ (Sodium Chloride) 100 mls @ 200 mls/hr IV SEND TO OR W/PATIENT ONE Stop: 02/23/20 07:42 Influenza Virus Vaccine Quadrival (Influenza Vaccine (6mos+)/Pf 0.5 Ml Syringe) 0.5 ml IM .ONCE ONE Stop: 02/23/20 10:01 Insulin Human Lispro (Insulin Lispro 100 Unit/Ml Insuln.Pen) 0 unit SC Q6 [facility]; Protocol Last Admin: 02/23/20 05:38 Dose: Not Given Documented by: Metoprolol Tartrate (Metoprolol Tartrate 25 Mg Tablet) 25 mg PO BID [facility] Last Admin: 02/22/20 21:32 Dose: Not Given Documented by: Morphine Sulfate (Morphine 2 Mg/Ml Syringe) 2 - 4 mg IV Q2H PRN PRN PRN Reason: Pain Score 4-10 Morphine Sulfate (Morphine 4 Mg/Ml Syringe) 2 - 4 mg IV Q2H PRN PRN PRN Reason: Pain Score 4-10 Ondansetron HCl (Ondansetron 4 Mg/2 Ml Vial) 4 mg IV Q6H PRN PRN PRN Reason: NAUSEA Sodium Chloride (0.9% Saline Lock 10 Ml Syringe) 10 - 40 ml IV UD PRN PRN Reason: SALINE FLUSH Last Admin: 02/22/20 17:27 Dose: 10 ml Documented by: Medical Necessity - Tobacco Use Smoking Status: Current every day smoker Tobacco Use: Cigarettes Assessment/Plan All Active Problems (Last Updated 02/13/18 @ 10:50 by Raquel Hayden) SBO (small bowel obstruction) (Acute) 74-year-old male with small bowel obstruction 1. The patient had over 2 L of bilious output from his NG tube. I am fearful that if I remove the tube he would have a similar outcome as last time when they remove the NG tube last week and the bowel obstruction recurred. I discussed conservative management with him versus exploratory laparoscopy. The patient elects for exploratory laparoscopy. I discussed the risks of the procedure including not limited to bleeding, infection, injury to other organs, need for bowel resection. The patient understands the risks and is willing to proceed. Steve Dumont MD Pager: [facility] [address] [place] [address] [address] [place] [address] Office:
[2020-02-23] MEDS: Ondansetron 4 MG/2 ML Vial IV (09:00)
[2020-02-23 09:03] LABS: Hemoglobin A1c 6.8 % (3.8-5.6)
--- NOTE | 2020-02-23 09:25 | CASEMGMT ---
Addendum entered by Jerson Sherman 02/23/20 17:38: Call placed placed to [facility] and spoke w/nurse Roselia. She is aware pt has been admitted to [facility]. Roselia asks for d/c instructions to be faxed to [facility] @ d/c: [phone]. Roselia scheduled an appt for pt for Mar 01 @ 3:30 PM. Pt made aware. Order placed under D/C: appts, printed off and given to pt. Original Note: RN CM GUEST HOUSE MANAGER CM to room to meet with patient for initial transition planning/care coordination assessment. RN CM introduced self and role at [facility]. Pt voices understanding and consents to assessment at this time. Pt sitting up in chair in room in no distress at this time. NG in place. Pt is A/O at this time and answers all questions appropriately. Care providers, pharmacy, and demographics verified/updated at this time. PCP: [facility]. [phone]. 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 Nurse Roselia Preferred Pharmacy: [facility] Retail Insurance: [facility], [employer] benefits Prescription Benefit: VA benefits only Living Will/HPOA: [facility] does not have LW or HCPOA . Interested in more information but [facility] talk with SW at this time to complete paperwork. Provided information on advanced directives and given Social Service rac card with number to call if chooses in the future to utilize [facility] social work for advanced directive completion. Educated patient that, if patient so chooses, can come back to [facility] and meet with a SW as an outpatient to complete health care advanced directives. Patient expresses understanding. LNOK: 3 sons. Mekhi, Bryn, and Jhony Living Arrangements: Lives alone in 2-story home 2/no steps to enter. Does okay with the stairs. Both floors have a bathroom. Bedroom on 2nd floor. Independent w/ADLs and IADL's. Son, Mekhi, lives nearby and able to help. Transportation: Pt states drives self and states no transportation concerns at this time. Son, Mekhi, will take him home @ discharge. DME: Has a Glucometer. Ambulates independently w/no DME. Denies need for DME. HHC/SNF: No history of either. Denies needs for HHC and no needs identified. Pt wishes to return home and states has no concerns with going home at time of discharge. CM to follow for any discharge planning/needs. Pt voices no concerns/needs at this time. Advised pt to ask for CM if any questions/concerns/needs arise. Voices understanding. PLAN: Home Kevin ALONSO RN CM
--- NOTE | 2020-02-23 10:04 | NURSING ---
pt left for surgery
[2020-02-23] MEDS: Bupivacaine Mpf 0.5% 30 ML VIAL (11:43)
--- NOTE | 2020-02-23 12:47 | PCM.OPRPT ---
Problem List (1) SBO (small bowel obstruction) Status: Acute Report of Operation Date of Procedure: 02/23/20 Pre-Operative Diagnosis: Small bowel obstruction Post-Operative Diagnosis: Same Surgery/Procedure Performed:: Exploratory laparoscopy with lysis of adhesion and release of small bowel traction Description of Procedure: Patient was brought back to the operating room and general anesthesia was induced. The abdomen was prepped and draped in usual sterile fashion. An incision was made superior to the umbilicus and deepened to the fascia. The fascia was elevated and incised. Port was placed into the abdomen and the abdomen was insufflated 15 mmHg. The abdomen was inspected and the patient appeared to have distended bowel and a band across the bowel causing obstruction in the right upper quadrant. Under direct visualization an epigastric 5 mm port was placed as well as the right lower quadrant 5 mm port. The patient had a band of omentum causing an internal hernia with obstruction. Enseal was used to take the band down after the bowel was pushed back with a grasper and this released the bowel and the contents started to move forward. 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 This was left alone to avoid small bowel resection. The bowel was run distally and it appeared that the contents started flowing distally and there were no further obstructions. The ports were removed and the midline fascia was closed with a [id number] 0 Vicryl suture. All of the incisions were anesthetized the skin was closed with interrupted 4-0 Monocryl sutures as well as Steri-Strips and bandages. Patient tolerated the procedure well was awoken and taken to PACU in stable condition. - Admit VTE Documentation VTE Mechan Device Prophylaxis: SCD's
[2020-02-23 13:15] LABS: Bedside Glucose 114 mg/dL (70-110)
[2020-02-23 17:41] LABS: Bedside Glucose 114 mg/dL (70-110)
[2020-02-23 23:10] LABS: Bedside Glucose 116 mg/dL (70-110)
[2020-02-24 03:58] VITALS: BP 135/65; PULSE 76; RESP 16; TEMP 36.8; O2SAT 98
[2020-02-24 03:59] VITALS: BMI 26.3
[2020-02-24] MEDS: 0.9% Normal Saline 1,000 ML 125 ML IV (06:32)
[2020-02-24 06:40] LABS: Bedside Glucose 101 mg/dL (70-110)
[2020-02-24 07:50] VITALS: BP 140/58; PULSE 68; RESP 16; TEMP 36.6; O2SAT 97
--- NOTE | 2020-02-24 08:00 | PN.SURG_ITS ---
Patient Problems: Active and Suspected Problems (Last Updated 02/13/18 @ 10:50 by Raquel Hayden) SBO (small bowel obstruction) (Acute) Subjective: Patient reports he is passing gas and had several bowel movements. His abdomen is less distended and he has had no nausea or vomiting - Physical Exam Vitals/I&O's: Vital Signs Temp Pulse Resp BP Pulse Ox 98.3 F 76 16 135/65 H 98 02/24/20 03:58 02/24/20 03:58 02/24/20 03:58 02/24/20 03:58 02/24/20 03:58 Oxygen Flow Rate (L/min) 2 Oxygen Delivery Method Room Air Weight: 173 lb 3.193 oz Body Mass Index (BMI) 26.3 Intake and Output for Last 24 Hours 02/22/20 02/23/20 02/24/20 23:59 23:59 23:59 Intake Total 1247.50 / 1247.50 2837.50 / 2837.50 1083.33 / 1083.33 Output Total 1200 / 1200 1300 / 1300 300 / 300 Balance 47.50 / 47.50 1537.50 / 1537.50 783.33 / 783.33 General: Alert, Oriented x3 Neck: No JVD Lungs: Normal air movement Cardiovascular: Regular rate, Regular Rhythm Abdomen: Soft, Non Tender, Non-Distended Microbiology Past 72 Hours 02/23/20 08:45 Mucosa - Nose - Final Laboratory Results 02/23/20 05:45: Hemoglobin A1c 6.8 H 02/23/20 13:10: POC Glucose 114 H 02/23/20 17:20: POC Glucose 114 H 02/23/20 23:04: POC Glucose 116 H 02/24/20 06:35: POC Glucose 101 Current Medications Dextrose (Dextrose 50%-Water 25 Gm/50 Ml Disp.Syrin) 0 gm IV X1 PRN; Protocol PRN Reason: Hypoglycemia Glucagon (Glucagon 1 Mg/Ml Syringe) 1 mg IM .X1 PRN PRN Reason: Hypoglycemia Sodium Chloride () 250 mls @ 15 mls/hr IV .[id number] PRN PRN Reason: Saline Flush Sodium Chloride () 250 mls @ 15 mls/hr IV .[id number] PRN PRN Reason: Additional IVPB Infusion Pantoprazole Sodium 40 mg/ (Sodium Chloride) 110 mls @ 330 mls/hr IV Q12 [facility] Last Infusion: 02/23/20 23:16 Dose: Infused Documented by: Insulin Human Lispro (Insulin Lispro 100 Unit/Ml Insuln.Pen) 0 unit SC Q6 [facility]; Protocol Last Admin: 02/24/20 06:39 Dose: Not Given Documented by: Metoprolol Tartrate (Metoprolol Tartrate 25 Mg Tablet) 25 mg PO BID [facility] Last Admin: 02/23/20 23:13 Dose: Not Given Documented by: Morphine Sulfate (Morphine 2 Mg/Ml Syringe) 2 - 4 mg IV Q2H PRN PRN PRN Reason: Pain Score 4-10 Morphine Sulfate (Morphine 4 Mg/Ml Syringe) 2 - 4 mg IV Q2H PRN PRN PRN Reason: Pain Score 4-10 Ondansetron HCl (Ondansetron 4 Mg/2 Ml Vial) 4 mg IV Q6H PRN PRN PRN Reason: NAUSEA Last Admin: 02/23/20 09:00 Dose: 4 mg Documented by: Sodium Chloride (0.9% Saline Lock 10 Ml Syringe) 10 - 40 ml IV UD PRN PRN Reason: SALINE FLUSH Last Admin: 02/22/20 17:27 Dose: 10 ml Documented by: Medical Necessity - Tobacco Use Smoking Status: Current every day smoker Tobacco Use: Cigarettes Assessment/Plan All Active Problems (Last Updated 02/13/18 @ 10:50 by Raquel Hayden) SBO (small bowel obstruction) (Acute) 74-year-old male status post laparoscopy for small bowel obstruction 1. Patient appears to be doing well. He has had minimal output from his NG since surgery. His abdomen is less distended and he has had several bowel movements and is passing flatus. I will remove his NG tube and start a clear liquid diet and advance as tolerated. If he is tolerating diet by later today I will discharge home. Incisions are clean dry and intact. Steve Dumont MD Pager: [facility] [address] [place] [address], [address] [place] [address] Office:
--- NOTE | 2020-02-24 08:03 | DCINST_ITS ---
- Discharge Diagnoses Current Active Problems: Current Active and Chronic Problems (Last Updated 02/13/18 @ 10:50 by Raquel Hayden) SBO (small bowel obstruction) (Acute) You will use the following diet at home:: Regular Your food should be the consistency of: Regular Discharge Activity: No Restrictions Lifting Restrictions: 20 lbs for 2 weeks Call your doctor if your incision/area has: Continuous Slow Oozing, Sudden Increased Bleeding, Increased Pain/ Swelling, Increased Redness, Foul Smelling Discharge, Swelling at the incision site Call your doctor if you observe: Fever of 101 or Higher Allergies/Adverse Reactions: Allergies No Known Allergies Allergy (Unverified 02/22/20 13:00) Medications to take at Discharge ascorbic acid (vitamin C) 500 mg capsule 500 mg PO DAILY cap 02/13/18 cholecalciferol (vitamin D3) 125 mcg (5,000 unit) capsule 5,000 unit PO DAILY 02/13/18 glipizide 10 mg tablet 10 mg PO DAILY 02/13/18 insulin glargine 100 unit/mL subcutaneous solution 20 unit SC DAILY ml 02/13/18 levothyroxine 200 mcg tablet 225 mcg PO DAILY 02/13/18 meloxicam 7.5 mg tablet 7.5 mg PO BID 02/13/18 metformin 500 mg tablet 500 mg PO BID 02/13/18 metoprolol tartrate 25 mg tablet 25 mg PO BID 02/13/18 hodjkzzw-wsf-nlbih acid 300 mcg-lycopene 600 mcg-lutein 300 mcg tablet 1 tab PO DAILY 02/13/18 omeprazole 20 mg capsule,delayed release 20 mg PO DAILY 02/13/18 rosuvastatin 10 mg tablet 10 mg PO DAILY 02/13/18 Test Results: Test results from this visit will be discussed in further detail at your follow- up appointment, if applicable. Please Follow Up With: Steve Dumont MD When: Please call to schedule 2 week follow up appointment. [phone]
[2020-02-24 10:09] VITALS: PULSE 66
[2020-02-24] MEDS: 0.9% Saline Lock 10 ML Syringe IV (10:09)
[2020-02-24] MEDS: Metoprolol Tartrate 25 MG Tablet PO (10:09)
[2020-02-24 12:50] LABS: Bedside Glucose 129 mg/dL (70-110)
[2020-02-24 14:00] VITALS: BP 134/64; PULSE 60; RESP 16; TEMP 36.7; O2SAT 100
--- NOTE | 2020-02-26 15:00 | CASEMGMT ---
JOE BRONSON Discharge Follow-up Phone Call: MARIBELNathalia: Jah Strata: 3 Call Date: 02/26/20 Discharge Date: 02/24/20 Time of Call: 1500 Duration: 3 min Admitting Diagnosis: Small Alisha obstruction JOE BRONSON completed follow-up phone call after recent hospitalization. Patient states he is doing okay but still a little sore and taking it easy. Patient had lost discharge instructions and wanted number to Dr. Dumont's office to schedule appointment. JOE BRONSON provided number for Dr. Dumont's office. Patient had no further questions or concerns at this time.
== END 2020-02-24 14:09 | disposition home or self-care (01) | DRG 337 ==
LOC: ED 16:21 → MS3 16:35
PROVIDERS: Anesthesiology; Admitting Provider Surgery; Emergency Provider Emergency Medicine; Visit Provider Surgery
PROC: 0DNU4ZZ Release Omentum, Percutaneous Endoscopic Approach (ICD-10-PCS; CPT 49320; principal; 2020-02-23 11:10)
DX: K56.50 Intestinal adhesions [bands], unspecified as to partial versus complete obstruction (principal); E11.9 Type 2 diabetes mellitus without complications; E03.9 Hypothyroidism, unspecified; F17.210 Nicotine dependence, cigarettes, uncomplicated; Q43.0 Meckel's diverticulum (displaced) (hypertrophic); Z79.4 Long term (current) use of insulin; Z79.890 Hormone replacement therapy; Z85.850 Personal history of malignant neoplasm of thyroid; Z23 Encounter for immunization
CPT/HCPCS: 74018; 74177; 80048; 80076; 82962; 83036; 83690; 84443; 85025; 87426; 93005; 97802; 99284; G0008; J7030; J7120; Q9967; 90686; A4216; C1760; J2405

== ENCOUNTER 2021-04-21 09:00 | Emergency (ER) | payer OTHER, SELFPAY ==
[2021-04-21 09:00] VITALS: BP 141/65; PULSE 65; RESP 16; TEMP 36.2; O2SAT 98; BMI 25.8
[2021-04-21 09:02] VITALS: BP 141/65; PULSE 65; RESP 16; TEMP 36.2; O2SAT 98
--- NOTE | 2021-04-21 09:15 | CT_ITS ---
STUDY: CT ABDOMEN AND PELVIS WITH CONTRAST REASON FOR EXAM: Male, 75 years old. Abdominal pain RADIATION DOSAGE (If Supplied By Facility): CTDIvol = ( 14.26 ) mGy, DLP = ( 1004.52 ) mGycm TECHNIQUE: Transaxial images were obtained from the dome of the diaphragm to the symphysis pubis without oral contrast. 100 ml of ISOVUE-370 contrast was administered. Sagittal and coronal images were reconstructed. Individualized dose optimization techniques were used for this CT. COMPARISON: 02/22/20 FINDINGS: There is atelectasis at the lung bases. The visualized portions of the heart and pericardium are within normal limits. There are coronary artery calcifications noted. The patient is status post cholecystectomy. The liver is within normal limits. There are no suspicious hepatic lesions. The spleen is normal in size. The pancreas is within normal limits. The adrenal glands are within normal limits. There are no renal or ureteral stones. There is no hydronephrosis. There are stable bilateral renal cysts. Normal visualized stomach. There is no bowel obstruction or inflammation. There is a large amount of stool in the colon, consistent with constipation. The appendix is visualized and appears normal. The aorta is normal in caliber. There are atherosclerotic calcifications noted in the aorta. There is no abdominal or pelvic free air, free fluid, fluid collection or lymphadenopathy. There are no destructive osseous lesions. CT/Abdomen/Pelvis W IV Cont ONLY IMPRESSION: No bowel obstruction or inflammation. Normal appendix. Constipation. No urinary calculi. No hydronephrosis. Atherosclerosis and coronary artery disease. Electronically Signed: Javier Guevara MD at 10:48 EST Tel , Service support ,
--- NOTE | 2021-04-21 09:17 | EDS_ITS ---
HPI History of Present Illness Chief Complaint: Flank Pain Informant: patient Narrative Narrative: Patient presents with right posterior flank pain. On Saturday of this week, his feet caught on a gate causing him to fall. This was a mechanical fall and not syncope. He fell on the edge of a planter. He has had pain in his right flank area since. He is not short of breath. Occasionally will hurt to breathe but most of the time it does not. Movement definitely causes pain. He states the pain is similar to a kidney stone which he has had. He has had diverticulitis but this is not typical area for this. He is eating and drinking. He is moving his bowels well. He seems to be urinating with a little bit more difficulty than normal. However, this did not change with the fall it more changed about a month ago when he had a UTI. He is not having burning or dysuria. No blood. No obstruction or inability to urinate. [facility] Medical History (Updated 04/21/21 @ 12:[address] Rojelio Lunsford MD) Arthritis Back problem H/O malignant neoplasm of thyroid Hypothyroidism Type 2 diabetes mellitus Home Medications ascorbic acid (vitamin C) 500 mg capsule 500 mg PO DAILY cap 02/13/18 [History Last Taken 02/22/20] cholecalciferol (vitamin D3) 125 mcg (5,000 unit) capsule 5,000 unit PO DAILY 02/13/18 [History Last Taken 02/21/20] glipizide 10 mg tablet 10 mg PO DAILY 02/13/18 [History Last Taken 02/21/20] insulin glargine 100 unit/mL subcutaneous solution 20 unit SC DAILY ml 02/13/18 [History Last Taken 02/22/20] levothyroxine 200 mcg tablet 225 mcg PO DAILY 02/13/18 [History Last Taken 02/22/20] meloxicam 7.5 mg tablet 7.5 mg PO BID 02/13/18 [History Last Taken 02/22/20] metformin 500 mg tablet 500 mg PO BID 02/13/18 [History Last Taken 02/22/20] metoprolol tartrate 25 mg tablet 25 mg PO BID 02/13/18 [History Last Taken 02/22/20] yuhpjufj-jjo-opyhw acid 300 mcg-lycopene 600 mcg-lutein 300 mcg tablet 1 tab PO DAILY 10/18/18 [History Last Taken 02/21/20] omeprazole 20 mg capsule,delayed release 20 mg PO DAILY 02/13/18 [History Last Taken 02/22/20] rosuvastatin 10 mg tablet 10 mg PO DAILY 02/13/18 [History Last Taken 02/21/20] oxycodone-acetaminophen [Percocet] 1 tab PO Q6H PRN 3 Days #12 tab 04/21/21 [Rx Last Taken Unknown] tamsulosin [Flomax] 0.4 mg PO DAILY #30 cap 04/21/21 [Rx Last Taken Unknown] Allergy/AdvReac Type Severity Reaction Status Date / Time No Known Allergies Allergy Verified 04/21/21 09:02 Surgical History H/O thyroidectomy Social History Smoking Status: Current every day smoker tobacco type: cigarettes alcohol intake: current substance use type: does not use ROS ROS ED Constitutional Constitutional ED: Denies chills or fever(s) ENT ENT ED: Denies rhinorrhea or sore throat Cardiovascular Cardiovascular: Denies chest pain, palpitations or racing heartbeat Respiratory/Chest Respiratory/Chest: Denies cough or dyspnea Gastrointestinal Gastrointestinal: Denies constipation, diarrhea, melena, nausea or vomiting Genitourinary Genitourinary ED: Reports other Details: Occasional hesitancy. ; Denies dysuria or hematuria Musculoskeletal Musculoskeletal: Reports back pain and other Details: Right flank/back pain. Integumentary Denies abscess, Abrasions or rash Neurologic Neurologic: Denies headache(s), paresthesias or weakness Endocrine Endocrinology: Denies polydipsia or polyuria Allergic/Immunologic Allergic/Immunologic ED: Denies mouth swelling or urticaria EXAM Physical Exam Const Vital Signs: 04/21/21 09:00 04/21/21 09:02 Temperature 97.2 F L 97.2 F L Temperature Source Temporal Temporal Pulse Rate 65 65 Respiratory Rate 16 16 Blood Pressure 141/65 H 141/65 H Blood Pressure Mean 90 90 Pulse Ox 98 98 Oxygen Delivery Method Room Air Room Air Positive well nourished and well developed General Appearance ED: well developed and NAD; Negative for cyanotic HEENT Reports moist mucous membranes Eyes General Eye ED: Negative for pale conjunctiva Neck no JVD Chest Wall inspection of chest normal and palpation of chest normal Resp normal respiratory effort and clear to auscultation bilaterally Resp Narrative: Patient had pain sitting up but not when he was taking breaths. His lungs actually sound clear. No asymmetry of tones side to side. Auscultation: Negative for rales, rhonchi or wheezes Cardio regular rate, regular rhythm and no murmurs GI normal to inspection, nondistended, normoactive bowel sounds and non-tender GI Narrative: No anterior abdominal tenderness. Palpation: soft Back/Spine Back/Spine Narrative: Patient does have tenderness in the CVA area. He also has a little tenderness above this. I do not feel crepitance. There is no subcu air. There is some fullness in the area that makes me suspicious there could be underlying rib fracture. General Back: CVA tenderness Extremity normal to inspection General Extremety ED: Negative for edema or tenderness General Extremity: Negative for edema Neuro oriented x3 Sensorium / Orientation: alert Psych mental status grossly normal Skin no rashes or lesions noted and no wounds Skin Narrative: Mild swelling but no contusions or abrasions visible. MDM MDM MDM Narrative Medical decision making narrative: Patient CBC shows mild nonspecific white count elevation. Electrolytes show mild elevated BUN to creatinine ratio. No marked abnormalities though. Urine is clean showing no sign of infection. CT scan and x-rays do not show any acute process. The patient's pain really started after a fall and impacted. He has pain in that area. I think this is likely contusion related to the fall. I explained t hat he could have rib fractures that were not seen. I will get him some pain meds as I think he is genuinely uncomfortable. Online prescribing report was checked. Patient also complains of ongoing issues with some difficulty starting his stream. This did not start with this pain or this fall. I will start him on Flomax because he has had this for a while and it is slowly worsening. Lab Data Attestation: I reviewed the patient's lab results. Labs: Laboratory Results - last 24 hr 04/21/21 04/21/21 04/21/21 09:23 09:23 12:02 WBC 12.3 H RBC 4.91 Hgb 15.0 Hct 44.5 MCV 90.6 MCH 30.5 MCHC 33.7 RDW Std Deviation 43.7 RDW Coeff of Natalia 13.1 Plt Count 279 MPV 10.2 Immature Gran % (Auto) 0.300 Neut % (Auto) 65.8 Lymph % (Auto) 24.8 [place] % (Auto) 7.0 Eos % (Auto) 1.7 Baso % (Auto) 0.4 Absolute Neuts (auto) 8.1 H Absolute Lymphs (auto) 3.05 Nucleated RBC % 0 Sodium 141 Potassium 4.6 Chloride 108 H Carbon Dioxide 25.0 Anion Gap 8 BUN 33 H Creatinine 1.13 Estim Creat Clear Calc 53.81 Est GFR (MDRD) Af Amer 81 Est GFR (MDRD) Non-Af 67 BUN/Creatinine Ratio 29.2 H Glucose 112 H Calcium 9.1 Total Bilirubin 0.60 AST 16 ALT 21 Alkaline Phosphatase 133 H Total Protein 7.3 Albumin 3.6 Globulin 3.7 Albumin/Globulin Ratio 1.0 Urine Color Yellow Urine Clarity Clear Urine pH 5.0 Ur Specific [place] 1.010 Urine Protein Negative Urine Glucose (UA) Normal Urine Ketones Negative Urine Occult Blood Negative Urine Nitrite Negative Urine Bilirubin Negative Urine Urobilinogen Normal Ur Leukocyte Esterase Negative Urine RBC 0 SEEN Urine WBC 0 SEEN Ur Squamous Epith Cells 0-5 SEEN Urine Bacteria 0 SEEN Urine Mucus 0 SEEN Radiography Diagnostic Testing: Clinical Impression(s) from Imaging Studies Abdomen/Pelvis CT 04/21/21 09:15 IMPRESSION: No bowel obstruction or inflammation. Normal appendix. Constipation. No urinary calculi. No hydronephrosis. Atherosclerosis and coronary artery disease. Electronically Signed: Javier Guevara MD at 10:48 EST Tel , Service support , Ribs w/Chest X-Ray 04/21/21 10:25 IMPRESSION: RIBS: No displaced rib fracture identified. CHEST: Clear lungs. Electronically Signed: Javier Guevara MD at 10:55 EST Tel , Service support , Discharge Plan Triage Chief Complaint: Flank Pain ED Provider: Rojelio Lunsford Dx/Rx/DC Orders Clinical Impression: Contusion of flank and back, Benign prostatic hyperplasia Instructions: Benign Prostatic Hyperplasia, ED Soft Tissue Contusion Prescriptions: New tamsulosin [Flomax] 0.4 mg capsule 0.4 mg PO DAILY Qty: 30 RF: 0 oxycodone-acetaminophen [Percocet] 5-325 mg tablet 1 tab PO Q6H PRN (Reason: pain) 3 Days Qty: 12 RF: 0 No Action cholecalciferol (vitamin D3) 5,000 unit capsule 5,000 unit PO DAILY RF: 0 ascorbic acid (vitamin C) 500 mg capsule 500 mg PO DAILY RF: 0 metformin 500 mg tablet 500 mg PO BID RF: 0 Centrum Silver Men 300-600-300 mcg tablet 1 tab PO DAILY RF: 0 glipizide 10 mg tablet 10 mg PO DAILY RF: 0 omeprazole 20 mg capsule,delayed release(DR/EC) 20 mg PO DAILY RF: 0 metoprolol tartrate 25 mg tablet 25 mg PO BID RF: 0 meloxicam 7.5 mg tablet 7.5 mg PO BID RF: 0 rosuvastatin 10 mg tablet 10 mg PO DAILY RF: 0 Lantus U-100 Insulin 100 unit/mL solution 20 unit SC DAILY RF: 0 levothyroxine [Levoxyl] 200 mcg tablet 225 mcg PO DAILY RF: 0 [facility] [Primary [facility] Provider] - 3-5 Days if not improving Disposition Disposition: Home, Self Care
[2021-04-21] MEDS: Morphine 4 MG/ML Syringe IV ×2 (09:30→10:35)
[2021-04-21] MEDS: Ondansetron 4 MG/2 ML Vial IV (09:30)
[2021-04-21 09:37] LABS: Absolute Lymphocyte Count 3.05 X10^3/uL (0.83-4.51); Absolute Neutrophil Count 8.1 X10^3/uL (2.0-7.7); Basophil# 0.05 X10^3/uL; Basophil% 0.4 % (0-1); Eosinophil# 0.21 X10^3/uL; Eosinophils% 1.7 % (0-5); Hematocrit 44.5 % (40-54); Lymphocyte # 3.05 X10^3/ul (0.83-4.51); Lymphocyte % 24.8 % (19-41); Mean Corp Hgb Conc 33.7 g/dL (32-36); Mean Corpuscular Hgb 30.5 pg (27.0-32.0); Mean Corpuscular Volume 90.6 fL (80-94); Mean Platelet Vol. 10.2 fl (6.2-12.0); Monocyte# 0.86 X10^3/uL; NRBC Flagged by Analyzer 0 % (0-5); Neutrophil # 8.09 X10^3/uL (2.7-7.7); Neutrophil % 65.8 % (47-70); Platelet Count 279 K/mm3 (150-450); RBC Distribution Width CV 13.1 % (11.6-14.6); RBC Distribution Width SD 43.7 fl (35.1-43.9); Red Blood Count 4.91 M/mm3 (4.6-6.2); White Blood Count 12.3 K/mm3 (4.4-11.0)
[2021-04-21 09:48] LABS: AST(SGOT) 16 U/L (15-37); Alanine Aminotransfer ALT/SGPT 21 U/L (16-61); Albumin, Serum 3.6 g/dL (3.2-5.0); Alkaline Phosphatase 133 U/L (45-117); Anion Gap 8 (5-15); BUN 33 mg/dL (7-18); BUN/Creat Ratio 29.2 RATIO (10-20); Calcium,Total 9.1 mg/dL (8.5-10.1); Chloride 108 mmol/L (98-107); Creatinine, Serum 1.13 mg/dL (0.70-1.30); EST Glomerular Filtration Rate 67 mL/min (>60); Est Glom Filt Rate - Afr Amer 81 mL/min (>60); Estimated Creatinine Clearance 53.81 ml/min; Globulin 3.7 g/dL (2.2-4.2); Glucose 112 mg/dL (74-106); Potassium 4.6 mmol/L (3.5-5.1); Protein, Total 7.3 g/dL (6.4-8.2); Sodium Level 141 mmol/L (136-145)
--- NOTE | 2021-04-21 10:25 | RAD_ITS ---
STUDY: X-RAY - UNILATERAL RIBS ( RIGHT ) WITH CHEST REASON FOR EXAM: Male, 75 years old. Fall. Pain. TECHNIQUE - RIBS: 4 view(s) of the ribs. TECHNIQUE - CHEST: Frontal view COMPARISON: None. FINDINGS - RIBS: There are no displaced rib fractures identified. FINDINGS - CHEST: The lungs are clear. There are no pleural effusions. There is no pneumothorax. The heart is normal in size. RAD/Ribs Uni Min 3V w/PA Chest IMPRESSION: RIBS: No displaced rib fracture identified. CHEST: Clear lungs. Electronically Signed: Javier Guevara MD at 10:55 EST Tel , Service support ,
[2021-04-21 12:08] LABS: Bacteria 0 SEEN /hpf (None Seen); Mucous, Urine 0 SEEN /hpf (<or=2+); Red Blood Cells-Urine 0 SEEN /hpf (0-5); White Blood Cells 0 SEEN /hpf (0-5)
[2021-04-21 12:13] LABS: Color, Urine Yellow (Yellow); Glucose, Dipstick Normal (Normal); Ketone-Dipstick Negative (Negative); Leukocyte Esterase-Dipstick Negative /ul (Negative); Nitrite-Dipstick Negative (Negative); Occult Blood-Urine Negative /ul (Negative); Protein-Dipstick Negative (Negative); Urine Bilirubin Dipstick Negative (Negative); Urine Clarity Clear (Clear); Urine Urobilinogen Normal (Normal)
[2021-04-21 12:18] LABS: Squamous Epithelial Cells - UA 0-5 SEEN /hpf (0-5)
[2021-04-21] MEDS: oxyCODONE 5 MG Tablet PO (13:13)
== END 2021-04-21 13:21 | disposition home or self-care (01) ==
PROVIDERS: Emergency Provider Emergency Medicine
DX: S30.1XXA Contusion of abdominal wall, initial encounter (principal); N40.0 Benign prostatic hyperplasia without lower urinary tract symptoms; W19.XXXA Unspecified fall, initial encounter; Y93.89 Activity, other specified; Y92.9 Unspecified place or not applicable; Y99.9 Unspecified external cause status; E03.9 Hypothyroidism, unspecified; E11.9 Type 2 diabetes mellitus without complications; I25.10 Atherosclerotic heart disease of native coronary artery without angina pectoris; K59.00 Constipation, unspecified; M19.90 Unspecified osteoarthritis, unspecified site; F17.210 Nicotine dependence, cigarettes, uncomplicated; Z79.1 Long term (current) use of non-steroidal anti-inflammatories (NSAID); Z79.4 Long term (current) use of insulin; Z87.440 Personal history of urinary (tract) infections; Z85.850 Personal history of malignant neoplasm of thyroid
CPT/HCPCS: 71101; 74177; 80053; 81001; 85025; 96374; 96375; 96376; 99284; Q9967; A4216; J2405

== ENCOUNTER 2021-06-08 13:17 | Outpatient (CLI) | payer MEDICARE, OTHER, SELFPAY ==
--- NOTE | 2021-06-08 13:22 | ECHOD_ITS ---
Reason For Study: Murmur Procedure This was a 2D Doppler, Color Flow transthoracic echocardiogram. The study was technically difficult. Exam performed in department. Left Ventricle Normal LV size. Apical false tendon noted. Left ventricular systolic function is normal. The estimated ejection fraction is 65 %. There is evidence of diastolic dysfunction. No regional wall motion abnormalities noted. Right Ventricle Normal RV size. Normal systolic function. Atria The left atrium is mildly enlarged. Normal right atrium. No doppler evidence for ASD. Mitral Valve There is no mitral annular calcification. Normal mitral valve. Mild (1+) mitral valve insufficiency. Tricuspid Valve Normal tricuspid valve. Trivial tricuspid valve insufficiency. Unable to estimate RV systolic pressure/pulmonary artery pressure due to technically difficult study. Aortic Valve Trisinus/trileaflet aortic valve. Mild diffuse aortic valve thickening. Mild focal aortic valve calcification. Mild aortic stenosis. Trivial aortic valve insufficiency. Pulmonic Valve The pulmonic valve is not well visualized. Great Vessels Normal sized aortic root. Pericardium/Pleural No pericardial effusion. MMode/2D Measurements & Calculations LVIDd: 3.6 cm IVSd: 1.1 cm LVOT diam: 2.0 cm LVIDs: 2.4 cm LVPWd: 1.2 cm LVOT area: 3.0 cm2 RVDd: 3.2 cm FS: 35.1 % Ao root diam: 3.2 cm LAV(MOD-bp): 67.3 ml LVAd ap4: 26.0 cm2 LAV(MOD-bp) Indexed: 35.1 ml/m2 LVLd ap4: 8.1 cm LAV(MOD-sp2): 52.0 ml EDV(MOD-sp4): 67.8 ml LAV(MOD-sp4): 84.9 ml EDV(sp4-el): 70.5 ml LVAs ap4: 15.5 cm2 LVLs ap4: 7.5 cm ESV(MOD-sp4): 27.4 ml ESV(sp4-el): 27.1 ml EF(MOD-sp4): 59.6 % EF(sp4-el): 61.6 % LVAd ap2: 23.9 cm2 SV(MOD-sp4): 40.4 ml SV(MOD-sp2): 38.9 ml LVLd ap2: 8.0 cm EDV(MOD-sp2): 61.0 ml EDV(sp2-el): 60.6 ml LVAs ap2: 13.1 cm2 LVLs ap2: 7.0 cm ESV(MOD-sp2): 22.1 ml ESV(sp2-el): 20.7 ml EF(MOD-sp2): 63.7 % SV(sp4-el): 43.4 ml LA dimension(2D): 4.4 cm LA A4 area: 23.9 cm2 RA A4 area: 13.5 cm2 Doppler Measurements & Calculations MV E max juni: 60.1 cm/sec Lat Peak E' Juni: 4.9 cm/sec Med Peak E' Juni: 3.9 cm/sec MV A max juni: 88.8 cm/sec E/E' lat: 12.2 E/E' med: 15.2 MV E/A: 0.68 Ao V2 max: 229.7 cm/sec AI max juni: 316.0 cm/sec LV V1 max: 128.8 cm/sec Ao max P.1 mmHg AI max P.9 mmHg LV V1 max P.6 mmHg Ao V2 mean: 148.2 cm/sec AI dec slope: 191.8 cm/sec2 LV V1 mean P.3 mmHg Ao mean P.1 mmHg AI P1/2t: 482.6 msec LV V1 mean: 85.7 cm/sec Ao V2 VTI: 41.8 cm LV V1 VTI: 24.2 cm JENIFER(I,D): 1.7 cm2 JENIFER(V,D): 1.7 cm2 SV(LVOT): 73.1 ml PA V2 max: 85.2 cm/sec ECHO/Echo Complete Interpretation Summary The study was technically difficult. Left ventricular systolic function is normal. The estimated ejection fraction is 65 %. Apical false tendon noted. The left atrium is mildly enlarged. Mild (1+) mitral valve insufficiency. Trivial tricuspid valve insufficiency. Mild aortic stenosis. Trivial aortic valve insufficiency. Unable to estimate RV systolic pressure/pulmonary artery pressure due to techni daryn difficult study. There is evidence of diastolic dysfunction. Ordering Physician: Levy Tipton Referring Physician: [facility] Performed By: Jeri Robertson RDCS
== END 2021-06-08 23:59 | disposition home or self-care (01) ==
LOC: CVS 13:20
PROVIDERS: Referring Provider Internal Medicine Cardiovascular Disease; Visit Provider Internal Medicine Cardiovascular Disease
DX: G47.33 Obstructive sleep apnea (adult) (pediatric) (principal); I49.1 Atrial premature depolarization; R01.1 Cardiac murmur, unspecified
CPT/HCPCS: 93225; 93226; 93306

== ENCOUNTER → 2022-07-10 | Outpatient (CLI) | payer MEDICARE, OTHER, SELFPAY ==
--- NOTE | 2022-07-10 08:18 | RAD_ITS ---
CLINICAL HISTORY: Male, 76 years old. Diffuse abdominal pain PROCEDURE: Small bowel follow-through study FLUOROSCOPY TIME (if supplied): (1:12) minutes/seconds 12 overhead images obtained. Dosage of 42.42mGy TECHNIQUE: Sighter films demonstrate retained stool throughout the colon. There is no free air. Bony structures show degenerative change. Patient ingested barium, sequential films follow the tract of barium through the small intestine to the colon. Normal appearance of the duodenum jejunum and ileum. No abnormal submucosal thickening, no abnormal separation of bowel loops to suspect acute inflammation, no abnormal distention. Transit time to the terminal ileum was approximately 60 minutes which is within normal range. Spot films of the terminal ileum do not show an acute abnormality. RAD/Small Bowel Series Only IMPRESSION: Normal small bowel follow-through study Electronically Signed: Horacio Inman MD at 10:55 EDT ,
== END | disposition home or self-care (01) ==
PROVIDERS: Referring Provider Surgery; Visit Provider Surgery
DX: R19.8 Other specified symptoms and signs involving the digestive system and abdomen (principal); R10.9 Unspecified abdominal pain
CPT/HCPCS: 74250

== ENCOUNTER 2022-09-18 07:27 | Day surgery (SDC) | payer MEDICARE, OTHER, SELFPAY ==
[2022-09-18] VITALS (7 sets, daily range): BP systolic 96–141; BP diastolic 53–77; PULSE 77–93; RESP 16–18; TEMP 36.6–37.2; O2SAT 93–98; BMI 27.8
[2022-09-18] MEDS: Lactated Ringers 1,000 ML 15 ML IV (07:58)
--- NOTE | 2022-09-18 08:18 | H&P.OPEN ---
HPI - General HPI Narrative MARIA DEL CARMEN AUGUSTIN, is a 76 M who presents for colonoscopy. The patient has been having lower abdominal pain and difficulty passing bowel movements. He had a small bowel follow-through which was normal. He says his bowel movements have become a little bit better since seeing me last but he is still having lower abdominal pain. [facility] Medical History (Updated 09/12/22 @ 10:19 by Kathy Carson) Abdominal pain Arthritis Back problem Cardiac murmur Cardiac murmur Cardiology follow-up encounter Chronic cough Diabetes Ectopic atrial rhythm Former smoker Gastric reflux H/O malignant neoplasm of thyroid High cholesterol History of deviated nasal septum History of echocardiogram History of Holter monitoring History of IBS History of irregular heartbeat HLD (hyperlipidemia) Hypertension Hypothyroidism Insulin dependent diabetes mellitus Kidney stones [place] (obstructive sleep apnea) Thyroid disease Type 2 diabetes mellitus Wears dentures Home Medications ascorbic acid (vitamin C) 500 mg capsule 500 mg PO DAILY supplement 02/13/18 [History Last Taken 02/22/20] cholecalciferol (vitamin D3) 125 mcg (5,000 unit) capsule 5,000 unit PO DAILY supplement 02/13/18 [History Last Taken 02/21/20] glipizide 10 mg tablet 5 mg PO DAILY diabetes 02/13/18 [History Last Taken 02/21/20] meloxicam 7.5 mg tablet 5 mg PO BID arthritis 02/13/18 [History Last Taken 02/22/20] metoprolol tartrate 25 mg tablet 25 mg PO BID blood pressure 02/13/18 [History Last Taken 02/22/20] ozzgpxpa-ugc-pywrs acid 300 mcg-lycopene 600 mcg-lutein 300 mcg tablet (Centrum Silver Men) 1 tab PO DAILY supplement 02/13/18 [History Last Taken 02/21/20] insulin glargine 100 unit/mL subcutaneous solution (Lantus U-100 Insulin) 30 unit subcut BID diabetes 05/10/21 [History Last Taken Unknown] levothyroxine 200 mcg tablet (Levoxyl) 225 mcg PO DAILY thyroid 05/10/21 [History Last Taken 09/18/22 06:30] metformin 500 mg tablet 500 mg PO BID diabetes 05/10/21 [History Last Taken Unknown] tamsulosin 0.4 mg capsule (Flomax) 0.4 mg PO DAILY 05/10/21 [History Last Taken Unknown] atorvastatin 80 mg tablet 80 mg PO QHS 09/12/22 [History Last Taken Unknown] losartan 50 mg tablet 50 mg PO DAILY 09/12/22 [History Last Taken Unknown] pantoprazole 40 mg tablet,delayed release 40 mg PO DAILY 09/12/22 [History Last Taken Unknown] triamterene 50 mg capsule 50 mg PO DAILY 09/12/22 [History Last Taken Unknown] Allergy/AdvReac Type Severity Reaction Status Date / Time No Known Allergies Allergy Verified 09/18/22 07:54 Family History Other Diabetes Surgical History (Updated 09/12/22 @ 10:19 by Kathy Carson) H/O thyroidectomy History of bilateral cataract extraction History of laparoscopic cholecystectomy Hx of surgical procedure Social History Smoking Status: Former smoker alcohol intake: current alcohol intake frequency: holidays/special occasions only substance use type: does not use caffeine: Yes Type: coffee Number of servings: 2 Past Medical/Surgical History Planned Operation Planned Operative Procedure/s: COLONOSCOPY Previous Hospitalizations/Surgeries HX Hospitalizations: No HX of Surgeries: gall bladder thyroid deviated septum Any Problems With Anesthesia: No You/Your Family Experience Fever (Hyperthermia) With Anes: No Cardiovascular Hx Chest Pain within Last 2 months: No Hx of Irregular Heartbeat and/or Afib: No (murmur) Hx Heart Attack: No Hx Congestive Heart Failure: No Hx Rheumatic Fever: No Hx Hypertension: Yes (CONTROLLED ON MED) Hx Internal Defibrillator: No Hx Pacemaker: No Hx Cardiac Catheterization: No Hx Cardiac Surgery/Stents/Etc.: No Hx Stress Test: Yes Hx Pain in Legs when Walking/Leg Cramps: No Respiratory Chronic Cough: No HX of Shortness of Breath: No Hoarseness: No Hx Chronic Obstructive Pulmonary Disease (COPD): No Hx Asthma: No Hx Emphysema: No Hx Sleep Apnea: No CPAP: No Hx Respiratory Tract Infection/Cold (presently): No Do You Snore Loudly (louder than talking or can be heard): No Do You Often Feel Tired/ Fatigued/ Sleepy Dring Daytime?: No Has Anyone Observed You Stop Breathing During Sleep?: No Result (for STOP score): Negative Hx Smoking: Yes Smoking Status: Former smoker Gastrointestinal Hx Gastroesophageal Reflux: Yes Controlled With Meds: No Hx Gastrointestinal Disorders: Yes (Hx diverticulitis) Hx Gastrointestinal Bleed: No Hx Ulcer: No Hx Hiatal Hernia: No Difficulty Chewing/Swallowing: No Hx Unplanned Weight Loss of 20#: Yes Neurological Hx Seizures: No HX Syncope/Blackout Spells/Unconsciousness: No Hx Multiple Sclerosis: No Hx Parkinson's Disease: No Hx Head/Neck Injury: No Hx Headaches: No Hx Back Injury/Pain: No Restless Legs: No Does patient have nerve stimulator: No Blood Disorder Hx Leukemia: No Bleeding Tendencies: No Hx Deep Vein Thrombosis: No Hx High Cholesterol: Yes Hx Hepatitis: No Hx Cirrhosis: No Hx Anemia: No Hx Blood Disorders: No Genitourinary Hx Renal Disease: No Hx Dialysis: No Musculoskeletal Hx Arthritis: Yes (spine, joints) Hx Rheumatoid Arthritis: No Endocrine Hx Diabetes: Yes Insulin: Yes Thyroid Disease: Yes Hx Steroid Therapy: No Psycho/Social Hx Substance Use: No Hx Alcohol Use: Yes (social) Hx Anxiety: No Hx Depression: No Mental Illness: No Hx Dementia: No Miscellaneous Hx Cancer: No Recent Exposure to Contagious Disease: No Any Loose Teeth: No Allergies No Known Allergies Allergy (Verified 09/18/22 07:54) Discharge Is Pt Admitted From a Senior Living, or a Jail: No After D/C, Where Do you Plan to Go: Return Home From the [facility] History Number of Risk Factors: 5 Vital Signs Vital Signs Vital Signs: 09/18/22 07:55 09/18/22 07:55 Temperature 97.8 F Temperature Source Temporal Pulse Rate 87 Respiratory Rate 18 Respiratory Pattern Normal Blood Pressure 141/68 H Blood Pressure Mean 92 Blood Pressure Source Monitor Blood Pressure Position Sitting Blood Pressure Location Left Arm Pulse Ox 97 Oxygen Delivery Method Room Air Weight Weight: 182 lb 15.739 oz Body Mass Index (BMI) 27.8 Physical Exam Const alert and oriented x3 HEENT normocephalic Eyes PERRL Resp normal respiratory effort and normal air movement Cardio regular rate and regular rhythm GI soft to palpation, non-tender and non-distended Extremity normal to inspection Assessment & Plan Assessment/Plan (1) Change in bowel movement: PLAN: I explained endoscopy in detail to the patient. I explained the risks including but not limited to stroke or heart attack with anesthesia, perforation of the GI tract, bleeding, infection. I explained that any of these could necessitate further emergency surgery. The patient understands and all questions were answered sufficiently. The patient wishes to proceed with procedure. Steve Dumont MD Pager: [facility] [address] [place] [address] [address] [place] [address] Office: Surgery Risks - Colonoscopy Risks Include but are not Limited To: Risks include but are not limited to: Bleeding, perforation requiring further surgery, inability to complete colonoscopy requiring barium enema.
[2022-09-18 08:20] LABS: Bedside Glucose 167 mg/dL (74-106)
--- NOTE | 2022-09-18 08:51 | OP.COLON_ITS ---
Patient Name: Chucho Avalos Procedure Date: 09/18/2022 8:25 AM Date of : 1945 Age: 76 Procedure: Colonoscopy Indications: Abdominal pain in the left lower quadrant, Abdominal pain in the left upper quadrant, Change in bowel habits Providers: Steve Dumont MD Referring MD: Steve Dumont MD Medicines: Monitored Anesthesia Care Patient Profile: This is a 76 year old male. Refer to note in patient chart for documentation of history and physical. Last Colonoscopy: 10 years ago. Complications: No immediate complications. Estimated blood loss: Minimal. Procedure: Pre-Anesthesia Assessment: - Prior to the procedure, a History and Physical was performed, and patient medications and allergies were reviewed. The patient's tolerance of previous anesthesia was also reviewed. The risks and benefits of the procedure and the sedation options and risks were discussed with the patient. All questions were answered, and informed consent was obtained. Prior Anticoagulants: The patient has taken no previous anticoagulant or antiplatelet agents. After reviewing the risks and benefits, the patient was deemed in satisfactory condition to undergo the procedure. After I obtained informed consent, the scope was passed under direct vision. Throughout the procedure, the patient's blood pressure, pulse, and oxygen saturations were monitored continuously. The Colonoscope was introduced through the anus and advanced to the cecum, identified by appendiceal orifice and ileocecal valve. The colonoscopy was performed without difficulty. The patient tolerated the procedure well. The quality of the bowel preparation was good. Scope In: 8:31:50 AM Scope Withdrawal Time 0 hours 5 minutes 10 seconds Scope Out: 8:43:37 AM Total Procedure Duration Time 0 hours 11 minutes 47 seconds Findings: The entire examined colon appeared normal on direct and retroflexion views. Many small-mouthed diverticula were found in the sigmoid colon. Impression: - The entire examined colon is normal on direct and retroflexion views. - Diverticulosis in the sigmoid colon. - No specimens collected. Recommendation: - Discharge patient to home. - Resume previous diet. - Continue present medications. - Repeat colonoscopy is not recommended due to current age (66 years or older) for screening purposes. Procedure Code(s): --- Professional --- 94147, Colonoscopy, flexible; diagnostic, including collection of specimen(s) by brushing or washing, when performed (separate procedure) Diagnosis Code(s): --- Professional --- R10.32, Left lower quadrant pain R10.12, Left upper quadrant pain R19.4, Change in bowel habit K57.30, Diverticulosis of large intestine without perforation or abscess without bleeding CPT copyright 2017 [employer]. All rights reserved. The codes documented in this report are preliminary and upon data management review may be revised to meet current compliance requirements. Steve Dumont MD 09/18/2022 8:50:23 AM This report has been signed electronically. Number of Addenda: 0 Note Initiated On: 09/18/2022 8:25 AM
--- NOTE | 2022-09-18 08:51 | OP.CCLET_ITS ---
09/18/2022 Bethany Cedeno [facility] [address] [place] [address] Re : Colonoscopy procedure for Chucho Avalos Dear Dr. Cedeno This procedure was performed on Sunday, September 18, 2022. My impressions and recommendations are as follows: Impressions : - The entire examined colon is normal on direct and retroflexion views. - Diverticulosis in the sigmoid colon. - No specimens collected. Recommendations : - Discharge patient to home. - Resume previous diet. - Continue present medications. - Repeat colonoscopy is not recommended due to current age (66 years or older) for screening purposes. My findings are described in the full procedure note, which is enclosed. If I can be of further assistance, please feel free to contact me at Doctor phone number(s): , Work: . Sincerely, Steve Dumont MD 09/18/2022 8:50:23 AM This report has been signed electronically.
== END 2022-09-18 09:23 | disposition home or self-care (01) ==
LOC: EN 07:27 → AC 07:28
PROVIDERS: PCP Internal Medicine; Referring Provider Surgery; Visit Provider Surgery
PROC: 0DJD8ZZ Inspection of Lower Intestinal Tract, Via Natural or Artificial Opening Endoscopic (ICD-10-PCS; CPT 45378; principal; 2022-09-18 08:40)
DX: K57.30 Diverticulosis of large intestine without perforation or abscess without bleeding (principal); E11.9 Type 2 diabetes mellitus without complications; Z79.84 Long term (current) use of oral hypoglycemic drugs; E78.00 Pure hypercholesterolemia, unspecified; I10 Essential (primary) hypertension; Z87.891 Personal history of nicotine dependence; E03.9 Hypothyroidism, unspecified; Z79.899 Other long term (current) drug therapy; K21.9 Gastro-esophageal reflux disease without esophagitis
CPT/HCPCS: 45378; 82962; J7120; J2405

== ENCOUNTER → 2023-02-24 | Outpatient (CLI) | payer MEDICARE, OTHER, SELFPAY | END | disposition home or self-care (01) | LOC: LABSPEC 14:40 | PROVIDERS: PCP Internal Medicine; Visit Provider Nurse Practitioner Family | DX: R39.9 Unspecified symptoms and signs involving the genitourinary system (principal) | CPT/HCPCS: 87086; 87088; 87186 ==

== ENCOUNTER → 2023-03-06 | Outpatient (CLI) | payer MEDICARE, OTHER, SELFPAY ==
[2023-03-06 09:20] LABS: Bacteria 0 SEEN /hpf (None Seen); Mucous, Urine 0 SEEN /hpf (<or=2+); Red Blood Cells-Urine 0 SEEN /hpf (0-5); White Blood Cells 0 SEEN /hpf (0-5)
[2023-03-06 09:51] LABS: Absolute Lymphocyte Count 3.95 X10^3/uL (0.83-4.51); Absolute Neutrophil Count 5.3 X10^3/uL (2.0-7.7); Basophil# 0.03 X10^3/uL; Basophil% 0.3 % (0-1); Eosinophil# 0.23 X10^3/uL; Eosinophils% 2.2 % (0-5); Hematocrit 50.5 % (40-54); Hemoglobin 15.2 g/dL (13.0-16.5); Lymphocyte # 3.95 X10^3/ul (0.83-4.51); Lymphocyte % 37.9 % (19-41); Mean Corp Hgb Conc 30.1 g/dL (32-36); Mean Corpuscular Hgb 29.1 pg (27.0-32.0); Mean Corpuscular Volume 96.6 fL (80-94); Mean Platelet Vol. 10.3 fl (6.2-12.0); Monocyte# 0.86 X10^3/uL; Monocyte% 8.3 % (0-10); NRBC Flagged by Analyzer 0 % (0-5); Neutrophil % 50.8 % (47-70); POSITIVE MORPHOLOGY YES; Platelet Count 292 K/mm3 (150-450); RBC Distribution Width SD 46.5 fl (35.1-43.9); Red Blood Count 5.23 M/mm3 (4.6-6.2); White Blood Count 10.4 K/mm3 (4.4-11.0)
[2023-03-06 09:52] LABS: Color, Urine Yellow (Yellow); Glucose, Dipstick Normal (Normal); Ketone-Dipstick Negative (Negative); Leukocyte Esterase-Dipstick Negative /ul (Negative); Nitrite-Dipstick Negative (Negative); Occult Blood-Urine Negative /ul (Negative); Protein-Dipstick 15 mg/dl (Negative); Specific Gravity, Urine 1.005 (1.002-1.030); Urine Bilirubin Dipstick Negative (Negative); Urine Clarity Clear (Clear); Urine Urobilinogen Normal (Normal)
[2023-03-06 10:01] LABS: Squamous Epithelial Cells - UA 0-5 SEEN /hpf (0-5)
[2023-03-06 10:13] LABS: Differential Indicated SCAN CRITERIA MET
[2023-03-06 10:17] LABS: Vitamin D,25 Hydroxy 42.4 ng/mL
[2023-03-06 10:24] LABS: AST(SGOT) 22 U/L (15-37); Alanine Aminotransfer ALT/SGPT 16 U/L (16-61); Albumin, Serum 3.4 g/dL (3.2-5.0); Alkaline Phosphatase 125 U/L (45-117); Anion Gap 3 (5-15); BUN 19 mg/dL (7-18); BUN/Creat Ratio 16.7 RATIO (10-20); Chloride 108 mmol/L (98-107); Cholesterol 163 mg/dL (200); Creatinine, Serum 1.14 mg/dL (0.70-1.30); EST Glomerular Filtration Rate 66 mL/min (>60); Est Glom Filt Rate - Afr Amer 80 mL/min (>60); Globulin 3.4 g/dL (2.2-4.2); Glucose 153 mg/dL (74-106); High Density Lipoprotein 43 mg/dL; Potassium 4.5 mmol/L (3.5-5.1); Protein, Total 6.8 g/dL (6.4-8.2); Sodium Level 138 mmol/L (136-145); Thyroid Stim Hormone (TSH) 3.92 uIU/mL (0.358-3.74); Triglycerides 143 mg/dL; Very Low Density Lipoprotein 29 mg/dL (5-40)
[2023-03-06 13:33] LABS: T4 Free Direct 1.25 ng/dL (0.76-1.46)
== END | disposition home or self-care (01) ==
PROVIDERS: PCP Internal Medicine; Visit Provider Internal Medicine
DX: N40.0 Benign prostatic hyperplasia without lower urinary tract symptoms (principal); E11.9 Type 2 diabetes mellitus without complications; N39.0 Urinary tract infection, site not specified; R30.0 Dysuria; I10 Essential (primary) hypertension; E78.5 Hyperlipidemia, unspecified; E55.9 Vitamin D deficiency, unspecified; R79.89 Other specified abnormal findings of blood chemistry; Z13.220 Encounter for screening for lipoid disorders; Z77.098 Contact with and (suspected) exposure to other hazardous, chiefly nonmedicinal, chemicals
CPT/HCPCS: 36415; 80053; 80061; 81001; 82306; 84153; 84439; 84443; 84481; 85025

== ENCOUNTER → 2023-08-07 | Outpatient (CLI) | payer MEDICARE, OTHER, SELFPAY ==
[2023-08-07 15:06] LABS: Bacteria 0 SEEN /hpf (None Seen); Mucous, Urine 0 SEEN /hpf (<or=2+); Red Blood Cells-Urine 0 SEEN /hpf (0-5)
[2023-08-07 16:17] LABS: Absolute Lymphocyte Count 2.89 X10^3/uL (0.83-4.51); Basophil# 0.04 X10^3/uL; Basophil% 0.5 % (0-1); Eosinophil# 0.13 X10^3/uL; Eosinophils% 1.5 % (0-5); Hematocrit 47.7 % (40-54); Hemoglobin 15.6 g/dL (13.0-16.5); Lymphocyte # 2.89 X10^3/ul (0.83-4.51); Lymphocyte % 32.5 % (19-41); Mean Corp Hgb Conc 32.7 g/dL (32-36); Mean Corpuscular Hgb 29.5 pg (27.0-32.0); Mean Corpuscular Volume 90.2 fL (80-94); Mean Platelet Vol. 11.5 fl (6.2-12.0); Monocyte# 0.77 X10^3/uL; Monocyte% 8.7 % (0-10); NRBC Flagged by Analyzer 0 % (0-5); Neutrophil # 5.02 X10^3/uL (2.7-7.7); Neutrophil % 56.5 % (47-70); Platelet Count 218 K/mm3 (150-450); Red Blood Count 5.29 M/mm3 (4.6-6.2); White Blood Count 8.9 K/mm3 (4.4-11.0)
[2023-08-07 16:46] LABS: Erythrocyte Sedimentation Rate 16 mm/hr (0-20)
[2023-08-07 16:58] LABS: Color, Urine Yellow (Yellow); Glucose, Dipstick 1000 mg/dl (Normal); Ketone-Dipstick Negative (Negative); Leukocyte Esterase-Dipstick Negative /ul (Negative); Nitrite-Dipstick Negative (Negative); Occult Blood-Urine Negative /ul (Negative); Protein-Dipstick Negative (Negative); Specific Gravity, Urine 1.015 (1.002-1.030); Urine Bilirubin Dipstick Negative (Negative); Urine Clarity Clear (Clear); Urine Urobilinogen 1 mg/dl (Normal)
[2023-08-07 17:14] LABS: ALB/GLOB Ratio 1.1 RATIO (0.9-2.4); AST(SGOT) 23 U/L (15-37); Alanine Aminotransfer ALT/SGPT 15 U/L (16-61); Albumin, Serum 3.6 g/dL (3.2-5.0); Alkaline Phosphatase 133 U/L (45-117); Anion Gap 6 (5-15); BUN 22 mg/dL (7-18); BUN/Creat Ratio 18.6 RATIO (10-20); CRP < 2.90 mg/L (0.0-3.0); Calcium,Total 9.1 mg/dL (8.5-10.1); Chloride 108 mmol/L (98-107); Creatinine, Serum 1.18 mg/dL (0.70-1.30); EST Glomerular Filtration Rate 63 mL/min (>60); Est Glom Filt Rate - Afr Amer 77 mL/min (>60); Free T3 2.8 pg/mL (2.18-3.98); Globulin 3.3 g/dL (2.2-4.2); Glucose 158 mg/dL (74-106); Magnesium 2.1 mg/dL (1.6-2.6); Potassium 4.5 mmol/L (3.5-5.1); Protein, Total 6.9 g/dL (6.4-8.2); Sodium Level 139 mmol/L (136-145); T4 Free Direct 2.65 ng/dL (0.76-1.46); Thyroid Stim Hormone (TSH) < 0.01 uIU/mL (0.358-3.74)
[2023-08-07 17:21] LABS: Squamous Epithelial Cells - UA 0-5 SEEN /hpf (0-5); White Blood Cells 0-5 SEEN /hpf (0-5)
[2023-08-07 18:06] LABS: Hemoglobin A1c 7.1 % (3.8-5.6)
== END | disposition home or self-care (01) ==
LOC: LAB 14:46
PROVIDERS: PCP Internal Medicine; Referring Provider Internal Medicine; Visit Provider Internal Medicine
DX: R11.0 Nausea (principal); E11.9 Type 2 diabetes mellitus without complications; R63.4 Abnormal weight loss; R63.0 Anorexia; R73.9 Hyperglycemia, unspecified; E03.9 Hypothyroidism, unspecified
CPT/HCPCS: 36415; 80053; 81001; 83036; 83735; 84439; 84443; 84481; 85025; 85652; 86140

== ENCOUNTER → 2023-08-21 | Outpatient (CLI) | payer MEDICARE, OTHER, SELFPAY ==
--- NOTE | 2023-08-21 13:49 | CT_ITS ---
STUDY: CT ABDOMEN AND PELVIS WITH CONTRAST REASON FOR EXAM: Male, 77 years old. Nausea, anorexia, abdominal pain. RADIATION DOSAGE (If Supplied By Facility): CTDIvol = ( 14.83 ) mGy, DLP = ( 888.16 ) mGycm TECHNIQUE: Transaxial images were obtained from the dome of the diaphragm to the symphysis pubis with oral contrast. Oral and amp; IV Readi-CAT and amp; 100mL Isovue-300 was administered. Sagittal and coronal images were reconstructed. Individualized dose optimization techniques were used for this CT. COMPARISON: Comparison is made with prior study dated April 21, 2021. FINDINGS: The visualized lung bases are unremarkable. Coronary artery calcification. There is decreased attenuation of the liver consistent with steatosis. The patient is status post cholecystectomy. Normal spleen. Normal pancreas. Normal bilateral adrenal glands. Stable bilateral renal cysts. Normal visualized stomach. Normal small intestine. There are multiple colonic diverticula consistent with diverticulosis. The appendix is visualized and appears normal. Normal abdominal aorta. Normal inferior vena cava. Normal retroperitoneum. Diffuse bladder wall thickening although the bladder is not completely distended. Normal abdominal wall. There are diffuse degenerative changes of the visualized lumbar spine. Minimal anterior listhesis of L4 on L5 due to facet joint osteoarthritis. CT/Abdomen/Pelvis WITH Contrast IMPRESSION: Fatty infiltration of the liver. Diffuse bladder wall thickening although the bladder is not completely distended at this time. Sigmoid diverticulosis. Stable bilateral renal cysts. Electronically Signed: Donaldo Garcia MD at 14:56 EDT ,
== END | disposition home or self-care (01) ==
LOC: CT 13:48
PROVIDERS: PCP Internal Medicine; Referring Provider Internal Medicine; Visit Provider Internal Medicine
DX: K56.609 Unspecified intestinal obstruction, unspecified as to partial versus complete obstruction (principal)
CPT/HCPCS: 74177; Q9967

== ENCOUNTER → 2023-08-31 | Outpatient (CLI) | payer MEDICARE, OTHER, SELFPAY ==
--- NOTE | 2023-08-31 09:20 | US_ITS ---
STUDY: RENAL ULTRASOUND - COMPLETE REASON FOR EXAM: Male, 77 years old. Thickened wall bladder, CT scan recent TECHNIQUE: Ultrasound evaluation of the kidneys was performed with real-time and static nichole-scale imaging. COMPARISON: None. FINDINGS: RIGHT KIDNEY: Normal location of the right kidney, which is normal in size. The right kidney measures 10.3 cm. There is a normal cortex of the right kidney. The renal cortex measures 1.3 cm. 1.8 cm cyst in the upper pole the right kidney. 2 cm septated cyst midsection of right kidney. Another 1 cm cyst midsection of right kidney. 2.2 cm cyst lower pole right kidney. There are no right renal calculi. There is mild hydronephrosis of the right kidney. DISTAL RIGHT URETER: There is non-visualization of the distal right ureter. There is no demonstrated right ureterovesical junction calculus. There is a visualized right ureteral jet. LEFT KIDNEY: Normal location of the left kidney, which is normal in size. The left kidney measures 10.7 cm. There is a normal cortex of the left kidney. The renal cortex measures 1.4 cm. 3 cm cyst lower pole left kidney. There are no left renal calculi. There is no left hydronephrosis. DISTAL LEFT URETER: There is non-visualization of the distal left ureter. There is no demonstrated left ureterovesical junction calculus. There is a visualized left ureteral jet. BLADDER: The distended urinary bladder has a volume of 341 ml. The empty urinary bladder has a volume of ml. There is a normal wall thickness of the distended urinary bladder. There is no demonstrated mass within the urinary bladder. There are no demonstrated bladder calculi. US/Kidney and Bladder IMPRESSION: 1. Mild right hydronephrosis. 2. Multiple bilateral renal cysts. Electronically Signed: Jesse Caputo MD at 21:25 EDT ,
== END | disposition home or self-care (01) ==
LOC: US 09:13
PROVIDERS: PCP Internal Medicine; Referring Provider Internal Medicine; Visit Provider Internal Medicine
DX: R63.0 Anorexia (principal); R63.4 Abnormal weight loss; Z77.098 Contact with and (suspected) exposure to other hazardous, chiefly nonmedicinal, chemicals; N32.89 Other specified disorders of bladder
CPT/HCPCS: 76770

== ENCOUNTER 2023-09-13 06:11 | Day surgery (SDC) | payer MEDICARE, OTHER, SELFPAY ==
[2023-09-13 06:40] VITALS: BP 117/65; PULSE 72; RESP 16; TEMP 37.1; O2SAT 95; BMI 23.4
--- NOTE | 2023-09-13 06:43 | PCM.HP.BLA ---
History and Physical Date of Admission: 09/13/23 Intake Vital Signs 08/06/2412:39 09/01/2413:08 Height 5 ft 8.5 in 5 ft 8 in Weight: 165 lb 160 lb BMI 24.7 24.3 BP 126/69 H 134/81 H Blood Pressure Location Rt brachial Rt brachial Position Sitting Sitting Respiration 18 18 Pulse 54 L 61 Pulse Source Monitor Monitor Temp 98.0 F 97.4 F L Temp Source Temporal Temporal Pulse Oximetry (%) 94 97 Oxygen Delivery Method room air room air Intake Visit Reasons: EGD- NAUSEA , ABNORMAL WEIGHT LOSS Chief Complaint: EGD- loss of appetite/ dex loss Is patient in pain?: No Allergies No Known Allergies Allergy (Verified 09/02/23 14:09) Medications ascorbic acid (vitamin C) 500 mg capsule 500 mg PO DAILY supplement 02/13/18 [History Confirmed 09/02/23] cholecalciferol (vitamin D3) 125 mcg (5,000 unit) capsule 5,000 unit PO DAILY supplement 02/13/18 [History Confirmed 09/02/23] glipizide 10 mg tablet 5 mg PO DAILY diabetes 02/13/18 [History Confirmed 09/02/23] meloxicam 7.5 mg tablet 5 mg PO BID arthritis 02/13/18 [History Confirmed 09/02/23] metoprolol tartrate 25 mg tablet 25 mg PO BID blood pressure 02/13/18 [History Confirmed 09/02/23] wrdtafjn-ug-qtcaw 300 mcg-K 60 mcg-lycop 600 mcg-lutein 300 mcg tablet (Centrum Silver Men) 1 tab PO DAILY supplement 02/13/18 [History Confirmed 09/02/23] insulin glargine 100 unit/mL subcutaneous solution (Lantus U-100 Insulin) 30 unit subcut BID diabetes 05/10/21 [History Confirmed 09/02/23] levothyroxine 200 mcg tablet (Levoxyl) 225 mcg PO DAILY thyroid 05/10/21 [History Confirmed 09/02/23] tamsulosin 0.4 mg capsule (Flomax) 0.4 mg PO DAILY 05/10/21 [History Confirmed 09/02/23] atorvastatin 80 mg tablet 80 mg PO QHS 09/12/22 [History Confirmed 09/02/23] losartan 50 mg tablet 50 mg PO DAILY 09/12/22 [History Confirmed 09/02/23] pantoprazole 40 mg tablet,delayed release 40 mg PO DAILY 09/12/22 [History Confirmed 09/02/23] triamterene 50 mg capsule 50 mg PO DAILY 09/12/22 [History Confirmed 09/02/23] [facility] Medical History Abdominal pain Arthritis Back problem Cardiac murmur Cardiac murmur Cardiology follow-up encounter Chronic cough Diabetes Dysuria Ectopic atrial rhythm Former smoker Gastric reflux H/O malignant neoplasm of thyroid High cholesterol History of deviated nasal septum History of echocardiogram History of Holter monitoring History of IBS History of irregular heartbeat HLD (hyperlipidemia) Hypertension Hypothyroidism Insulin dependent diabetes mellitus Kidney stones CHADWICK (obstructive sleep apnea) Thyroid disease Type 2 diabetes mellitus Wears dentures Surgical History H/O thyroidectomy History of bilateral cataract extraction History of laparoscopic cholecystectomy Hx of surgical procedure Family History Other Diabetes Social History Smoking Status: Former smoker alcohol intake: current alcohol intake frequency: holidays/special occasions only substance use type: does not use caffeine: Yes Type: coffee Number of servings: 2 HPI HPI HPI: Patient is a 77-year-old male here for weight loss. The patient reports that nothing is tasting right ever since he had his COVID-vaccine. He reports that the beginning year he had COVID and 2 months later he had a COVID-vaccine. He says since the COVID-vaccine he has not felt like anything that is not sweet does not taste right. He is also describing some phlegm in his throat in the mornings and coughing. He is concerned for reflux. He is on a PPI. He does not describe much heartburn. He has also been having some loose stools over the last month ROS General General: Yes weight change (loss of ~30lbs in one month ) HEENT HEENT: No difficulty swallowing, eye injury, eye surgery, swollen glands or hoarseness Endo Endocrine: Yes thyroid disease, diabetes mellitus and thyroid cancer; No Hair loss, heat intolerance or cold intolerance Skin Skin: No rash or changing moles Musc Musculoskeletal: Yes arthritis; No back problems, rheumatoid arthritis, gout or joint pain Cardio Cardiovascular: Yes murmur; No pacemaker, heart disease, atrial fibrillation, high blood pressure, heart attack, heart stent, palpitations, shortness of breat with exertion or chest pain Psych Psychiatric: No depression, anxiety or hearing voices Resp Respiratory: No shortness of breath, No sleep apnea, Yes cough, No COPD, No asthma, No emphysema and No wheezing Gastro Gastrointestinal: No abdominal pain, No nausea or vomiting, Yes diarrhea, Yes constipation, No blood in stool, No acid reflux, No hemorrhoids, No ulcers, No gallbladder problem and No black,tarry stools Kirk Hematologic: No blood thinners, No blood disorders, No bleeding, No anemia and No blood clots Neuro Neurologic: No numbness and No tingling Exam Const General: cooperative Orientation: alert and oriented x3 HENMT Head: normal to inspection Neck Neck: normal visual inspection and full ROM Chest Chest palpation & inspection: normal inspection of the chest Resp Effort & Inspection: normal respiratory effort Auscultation: clear to auscultation bilaterally Cardio Rate: regular rate Rhythm: regular rhythm GI Inspection: non-distended Palpation: soft and nontender Skin General: no rashes or lesions noted Neuro General: patient alert and patient oriented x3 Extrem General: full ROM Psych Appearance: grossly normal Mental Status: mental status grossly normal Assessment and Plan Assessment and Plan (1) Anorexia: Status: Acute (2) Weight loss: Status: Acute Orders: Orders EGD Today Plan The patient reports that he is having occasional nausea but he reports he is having much decreased food intake due to food not tasting right. I just performed a colonoscopy for him this past March which was normal. I do not believe he needs another colonoscopy for evaluation. He recently had a CT scan of the abdomen pelvis last months which was normal as well. I recommend EGD to evaluate for gastritis or esophagitis. I will also do biopsies for H. pylori. I explained endoscopy in detail to the patient. I explained the risks including but not limited to stroke or heart attack with anesthesia, perforation of the GI tract, bleeding, infection. I explained that any of these could necessitate further emergency surgery. The patient understands and all questions were answered sufficiently. The patient wishes to proceed with procedure. Steve Dumont MD Pager: [facility] [address] [place] [address], [address] [place] [address] Office: I have examined the patient and the H&P has been reviewed. There are no clinical changes since date of exam.
[2023-09-13] MEDS: Lactated Ringers 1,000 ML 15 ML IV (06:51)
[2023-09-13 07:21] VITALS: BP 117/65; BP 99/56; PULSE 70; RESP 16; TEMP 36.2; O2SAT 93
--- NOTE | 2023-09-13 07:22 | OP.EGD_ITS ---
Patient Name: Chucho Avalos Procedure Date: 09/13/2023 7:02 AM Date of : 1945 Age: 77 Procedure: Upper GI endoscopy Indications: Chronic cough, Weight loss Providers: Steve Dumont MD Referring MD: Bethany Ceedno Medicines: Propofol per Anesthesia Patient Profile: This is a 77 year old male. Refer to note in patient chart for documentation of history and physical. Complications: No immediate complications. Estimated blood loss: Minimal. Procedure: Pre-Anesthesia Assessment: - Prior to the procedure, a History and Physical was performed, and patient medications and allergies were reviewed. The patient's tolerance of previous anesthesia was also reviewed. The risks and benefits of the procedure and the sedation options and risks were discussed with the patient. All questions were answered, and informed consent was obtained. Prior Anticoagulants: The patient has taken no anticoagulant or antiplatelet agents. After reviewing the risks and benefits, the patient was deemed in satisfactory condition to undergo the procedure. After obtaining informed consent, the endoscope was passed under direct vision. Throughout the procedure, the patient's blood pressure, pulse, and oxygen saturations were monitored continuously. The Endoscope was introduced through the mouth, and advanced to the fourth part of duodenum. The upper GI endoscopy was accomplished without difficulty. The patient tolerated the procedure well. Scope In: 7:12:10 AM Scope Out: 7:14:58 AM Total Procedure Duration Time 0 hours 2 minutes 48 seconds Findings: The esophagus was normal. The stomach was normal. The examined duodenum was normal. A small hiatal hernia was present. Biopsies were taken with a cold forceps in the gastric antrum for Helicobacter pylori testing. Impression: - Normal esophagus. - Normal stomach. - Normal examined duodenum. - Small hiatal hernia. - Biopsies were taken with a cold forceps for Helicobacter pylori testing. Recommendation: - Discharge patient to home. - Resume previous diet. - Continue present medications. - Await pathology results. Procedure Code(s): --- Professional --- 92129, Esophagogastroduodenoscopy, flexible, transoral; with biopsy, single or multiple Diagnosis Code(s): --- Professional --- K44.9, Diaphragmatic hernia without obstruction or gangrene R05.3, Chronic cough R63.4, Abnormal weight loss CPT copyright 2021 [employer]. All rights reserved. The codes documented in this report are preliminary and upon striper machine review may be revised to meet current compliance requirements. Steve Dumont MD 09/13/2023 7:22:24 AM This report has been signed electronically. Number of Addenda: 0 Note Initiated On: 09/13/2023 7:02 AM
--- NOTE | 2023-09-13 07:23 | OP.CCLET_ITS ---
09/13/2023 Bethany Cedeno [facility] [address] [place] [address] Re : Upper GI endoscopy procedure for Chucho Avalos Dear Dr. Cedeno This procedure was performed on Wednesday, September 13, 2023. My impressions and recommendations are as follows: Impressions : - Normal esophagus. - Normal stomach. - Normal examined duodenum. - Small hiatal hernia. - Biopsies were taken with a cold forceps for Helicobacter pylori testing. Recommendations : - Discharge patient to home. - Resume previous diet. - Continue present medications. - Await pathology results. My findings are described in the full procedure note, which is enclosed. If I can be of further assistance, please feel free to contact me at Doctor phone number(s): , Work: . Sincerely, Steve Dumont MD 09/13/2023 7:22:24 AM This report has been signed electronically.
[2023-09-13 07:25] VITALS: BP 117/65; BP 95/58; PULSE 70; RESP 16; O2SAT 92
[2023-09-13 07:29] VITALS: BP 110/63; BP 117/65; PULSE 70; RESP 16; O2SAT 95
--- NOTE | 2023-09-13 07:30 | IMM_PTH ---
PATIENT: MARIA DEL CARMEN AUGUSTIN LOC: EN U#:[id number] AGE/SX: 77/M ROOM: RE09/13/[address]: Dr. Steve Dumont MD : 1945 BED: DIS: 09/13/2023 SPEC #: [id number] RECD: 09/13/23 12:17 STATUS: NESTOR REToma #: [id number] BIANCA: 09/13/23 07:[address]: Steve Dumont DEPT: IMMUNOHISTOCHEMISTRY RECD BY: Alexy Hammer ENTERED: 09/13/23 12:17 SP TYPE: IMMUNO OTHR DR: Dr. Bethany Cedeno MD Tissues: Gastric mucous membrane Procedures: H Pylori (initial) PHYSICIAN & INSTITUTION [place] [address] SPECIMEN INFORMATION: Tissue Source: Gastric antrum Clinical Info: Anorexia, weight loss Specimen Number: [id number] CPT code: 51198 METHODOLOGY: Deparaffinized sections of prefer/formalin-fixed tissue or PAP/DQ stained slides are incubated with monoclonal/polyclonal antibodies/oligonucleotide probes. Localization is made via biotin free immunoperoxidase method. Appropriate controls are performed and reacted as expected. Results on target cell population are indicated in the following table: RESULTS: ANTIBODY / CLONE RESULT H Pylori (polyclonal) negative These tests were developed and their performance characteristics determined by [facility]. They may not have been cleared or approved by the U.S. Food and Drug Administration. The FDA has determined that such clearance or approval is not necessary. The above immunohistochemical/dualISH markers are ordered and reviewed by the Pathologist. INTERPRETATION: Gastric antrum, biopsy: Negative for Helicobacter pylori organisms. MARY/ 09/16/2023
--- NOTE | 2023-09-13 07:30 | EGD_PTH ---
PATIENT: MARIA DEL CARMEN AUGUSTIN LOC: EN U#:[id number] AGE/SX: 77/M ROOM: RE09/13/[address]: Dr. Steve Dumont MD : 1945 BED: DIS: 09/13/2023 SPEC #: [id number] RECD: 09/13/23 10:43 STATUS: NESTOR KAYLEY #: [id number] BIANCA: 09/13/23 07:[address]: Steve Dumont DEPT: SURGICAL PATHOLOGY RECD BY: Zahraa Spears ENTERED: 09/13/23 11:01 SP TYPE: EGD BIOPSY JJ DR: Dr. Bethany Cedeno MD Tissues: Gastric mucous membrane Procedures: Surgery Specimen Level IV HEADER OPERATION: EGD biopsy PRE-OP DIAGNOSIS: Anorexia, weight loss TISSUE SUBMITTED: Gastric antrum MICROSCOPIC DIAGNOSIS Gastric antrum, biopsy: Chronic gastritis. AM/mr 09/16/2023 COMMENT The results of immunohistochemistry for Helicobacter pylori will be reported separately ([id number]). MICROSCOPIC DESCRIPTION Slides are reviewed. GROSS DESCRIPTION Received in fixative is one container labeled with the patient's name and designated Gastric antrum. The specimen consists of one irregular fragment of light langston soft tissue that measures 0.5 x 0.4 x 0.1 cm. The specimen is totally submitted in one cassette. MONIQUE/ 09/13/2023 TC:3 CPT:95363
[2023-09-13 07:35] VITALS: BP 117/65; BP 117/80; PULSE 69; RESP 16; TEMP 36.9; O2SAT 95
[2023-09-13 07:56] VITALS: BP 117/65
[2023-09-13 08:17] LABS: Bedside Glucose 145 mg/dL (74-106)
== END 2023-09-13 08:10 | disposition home or self-care (01) ==
LOC: EN 06:11 → AC 06:12
PROVIDERS: PCP Internal Medicine; Referring Provider Internal Medicine; Visit Provider Surgery
PROC: 0DJ08ZZ Inspection of Upper Intestinal Tract, Via Natural or Artificial Opening Endoscopic (ICD-10-PCS; CPT 43235; principal; 2023-09-13 07:25)
DX: K44.9 Diaphragmatic hernia without obstruction or gangrene (principal); E11.9 Type 2 diabetes mellitus without complications; Z79.4 Long term (current) use of insulin; E78.5 Hyperlipidemia, unspecified; E07.9 Disorder of thyroid, unspecified; R63.0 Anorexia; I10 Essential (primary) hypertension; R19.7 Diarrhea, unspecified; Z87.891 Personal history of nicotine dependence; Z79.84 Long term (current) use of oral hypoglycemic drugs; R05.3 Chronic cough; R63.4 Abnormal weight loss; G47.33 Obstructive sleep apnea (adult) (pediatric); Z87.442 Personal history of urinary calculi; Z85.850 Personal history of malignant neoplasm of thyroid; Z90.49 Acquired absence of other specified parts of digestive tract; Z68.24 Body mass index [BMI] 24.0-24.9, adult
CPT/HCPCS: 43239; 82962; 88305; 88342; J7120; J2405

== ENCOUNTER → 2023-10-16 | Outpatient (CLI) | payer MEDICARE, OTHER, SELFPAY ==
[2023-10-16 16:03] LABS: Absolute Lymphocyte Count 3.01 X10^3/uL (0.83-4.51); Absolute Neutrophil Count 4.7 X10^3/uL (2.0-7.7); Basophil# 0.07 X10^3/uL; Basophil% 0.8 % (0-1); Eosinophils% 2.3 % (0-5); Hematocrit 45.5 % (40-54); Lymphocyte # 3.01 X10^3/ul (0.83-4.51); Lymphocyte % 34.5 % (19-41); Mean Corpuscular Hgb 29.7 pg (27.0-32.0); Mean Corpuscular Volume 90.1 fL (80-94); Mean Platelet Vol. 11.5 fl (6.2-12.0); Monocyte# 0.74 X10^3/uL; Monocyte% 8.5 % (0-10); NRBC Flagged by Analyzer 0 % (0-5); Neutrophil # 4.69 X10^3/uL (2.7-7.7); Neutrophil % 53.7 % (47-70); Platelet Count 231 K/mm3 (150-450); RBC Distribution Width CV 14.6 % (11.6-14.6); RBC Distribution Width SD 48.2 fl (35.1-43.9); Red Blood Count 5.05 M/mm3 (4.6-6.2); White Blood Count 8.7 K/mm3 (4.4-11.0)
[2023-10-16 16:21] LABS: AST(SGOT) 18 U/L (15-37); Alanine Aminotransfer ALT/SGPT 15 U/L (16-61); Albumin, Serum 3.4 g/dL (3.2-5.0); Alkaline Phosphatase 122 U/L (45-117); Anion Gap 9 (5-15); BUN 20 mg/dL (7-18); BUN/Creat Ratio 20.5 RATIO (10-20); Calcium,Total 8.9 mg/dL (8.5-10.1); Chloride 112 mmol/L (98-107); Creatinine, Serum 0.98 mg/dL (0.70-1.30); EST Glomerular Filtration Rate 79 mL/min (>60); Est Glom Filt Rate - Afr Amer 95 mL/min (>60); Free T3 2.4 pg/mL (2.18-3.98); Globulin 3.4 g/dL (2.2-4.2); Glucose 153 mg/dL (74-106); Iron 73 ug/dL (65-175); Iron Binding Capacity,Total 326 ug/dL (250-450); Magnesium 1.9 mg/dL (1.6-2.6); PERCENT IRON SATURATION 22.4 % (15.0-55.0); Potassium 4.7 mmol/L (3.5-5.1); Protein, Total 6.8 g/dL (6.4-8.2); Sodium Level 141 mmol/L (136-145); T4 Free Direct 1.73 ng/dL (0.76-1.46); Thyroid Stim Hormone (TSH) < 0.01 uIU/mL (0.358-3.74)
[2023-10-16 16:22] LABS: Vitamin B12 346 pg/mL (211-911); Vitamin D,25 Hydroxy 52.6 ng/mL
== END | disposition home or self-care (01) ==
LOC: LAB 15:09
PROVIDERS: PCP Internal Medicine; Referring Provider Internal Medicine; Visit Provider Internal Medicine
DX: R41.3 Other amnesia (principal); R63.0 Anorexia; R63.4 Abnormal weight loss; R11.0 Nausea; E03.9 Hypothyroidism, unspecified; E55.9 Vitamin D deficiency, unspecified; E53.8 Deficiency of other specified B group vitamins
CPT/HCPCS: 36415; 80053; 82306; 82607; 83540; 83550; 83735; 84439; 84443; 84481; 85025

== ENCOUNTER → 2023-11-19 | Outpatient (CLI) | payer MEDICARE, OTHER, SELFPAY ==
--- NOTE | 2023-11-19 13:29 | MRI_ITS ---
STUDY: MRI BRAIN WITH AND WITHOUT CONTRAST REASON FOR EXAM: Male, 78 years old. memory changes TECHNIQUE: Standardized multiplanar fat and water weighted pulse sequences were obtained. 13CC CLARISCAN was administered for the contrast portion of the examination. COMPARISON: CT 05/28/2008 FINDINGS: There is mild cerebral atrophy with widening of the extra-axial spaces and ventricular dilatation. There are a limited number of small white matter hyperintensities, distributed throughout the deep white matter tracts of the cerebral hemispheres, consistent with mild chronic white matter ischemic changes. There is no evidence for recent intracranial ischemia or other cause of cytotoxic edema on diffusion weighted imaging (DWI). Normal T2* images of the brain without demonstrated susceptibility artifact. There is no demonstrated hemosiderin stain. Thin section coronal T2-weighted images through the temporal lobes demonstrate bilateral parahippocampal atrophy which may be significant and cognitive decline from Alzheimer''s disease. Normal bilateral basal ganglia. Normal thalami. There is no extra-axial fluid accumulation. Normal flow voids within the major intracranial circulation suggesting patency by spin echo criteria. Normal venous enhancement. There is no enhancing intra-axial or extra-axial abnormality. Normal sella turcica, pituitary gland, infundibular stalk, optic chiasm and hypothalamus. Normal tectal plate and pineal gland. Normal midbrain, chris and medulla. Normal cerebellum. Normal basal cisterns. Normal bilateral temporal bones. Normal bilateral internal auditory canals. There are bilateral ocular lens implants with otherwise normal intraorbital contents. Normal visualized paranasal sinuses. Normal calvarium and skull base. Normal visualized soft tissue structures. Normal visualized upper cervical spine. MRI/Brain W/WO Contrast IMPRESSION: Involutional changes of the brain, as described above. No acute infarct. Electronically Signed: Jesse Caputo MD at 12:29 EDT ,
== END | disposition home or self-care (01) ==
LOC: MRI 13:26
PROVIDERS: PCP Internal Medicine; Referring Provider Internal Medicine; Visit Provider Internal Medicine
DX: R41.3 Other amnesia (principal)
CPT/HCPCS: 70553; A9575

== ENCOUNTER → 2024-01-20 | Outpatient (CLI) | payer MEDICARE, OTHER, SELFPAY ==
--- NOTE | 2024-01-20 15:53 | MRI_ITS ---
EXAM: MR LEFT LOWER EXTREMITY WITHOUT INTRAVENOUS CONTRAST CLINICAL INDICATION: DROP FOOT TECHNIQUE: Multiplanar and multisequence MR images of the left lower extremity without intravenous contrast. COMPARISON: No relevant prior studies available. FINDINGS: ARTIFACTS: Motion artifact limits assessment. BONES/JOINTS: Unremarkable. No fracture. No abnormal bone marrow signal. No joint effusion. MUSCLES: Unremarkable. No edema or myositis. OTHER SOFT TISSUES: Dorsal subcutaneous edema. OTHER FINDINGS: No organized fluid collections. MRI/Lower Ext/No Jt/w/o IMPRESSION: 1. Dorsal subcutaneous edema. 2. No organized fluid collections. 3. No other significant internal derangement. Electronically Signed: Jd Lundberg MD at 23:44 EDT ,
--- NOTE | 2024-01-20 15:55 | MRI_ITS ---
EXAM: MR LEFT LOWER EXTREMITY WITHOUT INTRAVENOUS CONTRAST, ANKLE CLINICAL INDICATION: MUSCLE STRAIN, UNABLE TO FLEX OR EXTEND FOOT AFTER FALL TECHNIQUE: Multiplanar and multisequence MR images of the left ankle without intravenous contrast. COMPARISON: No relevant prior studies available. FINDINGS: LIGAMENTS: ANTERIOR TALOFIBULAR: Thickening of the anterior talofibular ligament and calcaneofibular ligament from a previous injury. POSTERIOR TALOFIBULAR: Unremarkable. Intact. ANTERIOR TIBIOFIBULAR: Unremarkable. Intact. POSTERIOR TIBIOFIBULAR: Unremarkable. Intact. CALCANEOFIBULAR: See above. DELTOID: Unremarkable. Intact. SPRING: Unremarkable. Intact. LISFRANC: Unremarkable. Intact. TENDONS: ACHILLES: Unremarkable. Intact. FLEXOR: Unremarkable. Intact. EXTENSOR: Unremarkable. Intact. PERONEAL: Unremarkable. Intact. TIBIALIS ANTERIOR: Unremarkable. Intact. TIBIALIS POSTERIOR: Unremarkable. Intact. MUSCLES: Unremarkable. Normal bulk and signal. FLUID: Unremarkable. No organized fluid collections. No significant tibiotalar or posterior subtalar joint effusion. SINUS TARSI: Unremarkable. Normal fat in the sinus tarsi. TARSAL TUNNEL: Unremarkable. PLANTAR FASCIA: Unremarkable. Intact. CARTILAGE: Unremarkable. No osteochondral lesion. Articular cartilage intact. BONES/JOINTS: No acute trauma related marrow signal alterations. OTHER SOFT TISSUES: Thickening of the central cord of plantar aponeurosis without adjacent fluid signal. Prominent edema involving the superficial and deep soft tissues along the posterior aspect of the ankle. Subcutaneous edema throughout. VASCULATURE: Nodular signal alterations raising concern for vascular elements at the anterior to mid aspect of the calcaneus. MRI/Lower Ext Joint Only (Routine) IMPRESSION: 1. Thickening of the anterior talofibular ligament and calcaneofibular ligament from a previous injury. 2. Diffuse subcutaneous edema, deep and superficial with no organized fluid collections. Electronically Signed: Jd Lundberg MD at 23:04 EDT ,
== END | disposition home or self-care (01) ==
LOC: MRI 15:39
PROVIDERS: PCP Internal Medicine; Referring Provider Podiatrist; Visit Provider Podiatrist
DX: M21.372 Foot drop, left foot (principal); M76.812 Anterior tibial syndrome, left leg; S86.212A Strain of muscle(s) and tendon(s) of anterior muscle group at lower leg level, left leg, initial encounter
CPT/HCPCS: 73718; 73721

== ENCOUNTER → 2024-07-08 | Outpatient (CLI) | payer MEDICARE, OTHER, SELFPAY | END | disposition home or self-care (01) | LOC: LABSPEC 09:25 | PROVIDERS: PCP Internal Medicine; Referring Provider Otolaryngology Otolaryngology/Facial Plastic Surgery; Visit Provider Otolaryngology Otolaryngology/Facial Plastic Surgery | DX: J02.9 Acute pharyngitis, unspecified (principal) | CPT/HCPCS: 87070 ==

== ENCOUNTER → 2024-08-06 | Outpatient (CLI) | payer MEDICARE, OTHER, SELFPAY ==
[2024-08-06 15:27] LABS: Absolute Lymphocyte Count 2.78 X10^3/uL (0.83-4.51); Absolute Neutrophil Count 5.3 X10^3/uL (2.0-7.7); Basophil# 0.05 X10^3/uL; Basophil% 0.5 % (0-1); Eosinophil# 0.15 X10^3/uL; Eosinophils% 1.6 % (0-5); Hemoglobin 17.5 g/dL (13.0-16.5); Lymphocyte # 2.78 X10^3/ul (0.83-4.51); Lymphocyte % 30.4 % (19-41); Mean Corpuscular Hgb 30.7 pg (27.0-32.0); Mean Platelet Vol. 11.2 fl (6.2-12.0); Monocyte# 0.81 X10^3/uL; Monocyte% 8.9 % (0-10); NRBC Flagged by Analyzer 0 % (0-5); Neutrophil # 5.33 X10^3/uL (2.7-7.7); Neutrophil % 58.3 % (47-70); Platelet Count 257 K/mm3 (150-450); RBC Distribution Width CV 13.9 % (11.6-14.6); RBC Distribution Width SD 47.3 fl (35.1-43.9); White Blood Count 9.2 K/mm3 (4.4-11.0)
[2024-08-06 16:34] LABS: ALB/GLOB Ratio 1.3 RATIO (0.9-2.4); AST(SGOT) 19 U/L (<=37); Alanine Aminotransfer ALT/SGPT 7 U/L (<=46); Albumin, Serum 4.3 g/dL (3.4-4.8); Alkaline Phosphatase 157 U/L (40-129); Anion Gap 12 (5-15); BUN 16 mg/dL (4-19); Calcium,Total 9.9 mg/dL (7.6-11.0); Carbon Dioxide 25.7 mmol/L (21.0-32.0); Chloride 99 mmol/L (98-108); Cholesterol 198 mg/dL (<=200); Creatinine, Serum 1.07 mg/dL (0.70-1.20); EST Glomerular Filtration Rate 71 (>60); Globulin 3.2 g/dL (2.2-4.2); Glucose 294 mg/dL (70-99); High Density Lipoprotein 44 mg/dL; Low Density Lipoprotein Calc. 125 mg/dL; Potassium 5.3 mmol/L (3.3-5.1); Protein, Total 7.5 g/dL (5.9-8.4); Sodium Level 137 mmol/L (133-145); Total Bilirubin 0.47 mg/dL (0.00-1.30); Triglycerides 145 mg/dL; Very Low Density Lipoprotein 29 mg/dL (5-40); cholesterol:hdl ratio screen 4.53
[2024-08-06 16:42] LABS: Free T3 4.2 pg/mL (2.18-3.98); Thyroid Stim Hormone (TSH) 0.017 uIU/mL (0.300-4.200); Vitamin B12 353 pg/mL (180-914); Vitamin D,25 Hydroxy 30.1 ng/mL (30-100)
== END | disposition home or self-care (01) ==
LOC: BIMLAB 11:56
PROVIDERS: PCP Internal Medicine; Referring Provider Internal Medicine; Visit Provider Internal Medicine
DX: E03.9 Hypothyroidism, unspecified (principal); E11.9 Type 2 diabetes mellitus without complications; G47.33 Obstructive sleep apnea (adult) (pediatric); E78.5 Hyperlipidemia, unspecified; I10 Essential (primary) hypertension; E55.9 Vitamin D deficiency, unspecified
CPT/HCPCS: 36415; 80053; 80061; 82306; 82607; 83036; 84439; 84443; 84481; 85025

== ENCOUNTER → 2024-08-19 | Outpatient (CLI) | payer MEDICARE, OTHER, SELFPAY ==
--- NOTE | 2024-08-19 17:51 | CT_ITS ---
PROCEDURE: CTA HEAD AND NECK W/ CONTRAST 08/19/2024 CT head without IV contrast REASON FOR EXAM: LIGHTHEADED DIZZINESS TECHNIQUE: Contiguous axial images of the head were obtained without the administration of intravenous contrast. CTA imaging of the head and neck from the aortic arch to the skull vertex with out constrast and with intravenous contrast. Coronal and Sagittal reconstruction series were provided. 3D post processing with reformations, Maximum intensity projection (MIPs) Volume rendering and Shaded surface rendering was provided. One or more dose reduction techniques were used (e.g., Automated exposure control, adjustment of the mA and/or kV according to patient size, use of iterative reconstruction technique). COMPARISON: None FINDINGS: No evidence of acute intracranial hemorrhage, midline shift or mass effect. No definite CT evidence of acute territorial cortical infarction. No hydrocephalus. Mild generalized cerebral atrophy and minimal chronic small-vessel ischemic changes. Calvarium is intact. Paranasal sinuses and mastoid air cells are clear. Arch vessels are patent. No significant subclavian artery stenosis. Right common, internal and external carotid arteries are without significant stenosis. Calcified plaque along the proximal and distal right ICA. Left common and internal carotid arteries are without significant stenosis. Moderate/severe stenosis of the proximal left ECA. Calcified plaque along the proximal and distal left ICA. No significant vertebral artery stenosis. 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 Biapical emphysema. Surgical absence of the thyroid gland. No suspicious neck mass or adenopathy. Degenerative changes of the cervical spine. No large vessel high-grade stenosis, occlusion or aneurysm involving the [id number]. Dural venous sinuses are grossly patent. No pathologic parenchymal enhancement. CT/CTA Head AND Neck W/ Contrast IMPRESSION: 1. No acute intracranial abnormality. If there is persistent clinical concern for acute ischemia, MRI is most sensitive. 2. No significant stenosis of the vertebral, common or internal carotid arterie s. Moderate/severe focal stenosis of the proximal left ECA. 3. No large vessel high-grade stenosis or occlusion involving the [id number] lis. Reading Location: [facility]
== END | disposition home or self-care (01) ==
LOC: CT 17:48
PROVIDERS: PCP Internal Medicine; Referring Provider Internal Medicine; Visit Provider Internal Medicine
DX: R42 Dizziness and giddiness (principal); R26.81 Unsteadiness on feet
CPT/HCPCS: 70496; 70498; Q9967

== ENCOUNTER 2025-01-27 14:51 | Inpatient (IN) | payer MEDICARE, OTHER, SELFPAY ==
[2025-01-27] VITALS (24 sets, daily range): BP systolic 91–119; BP diastolic 48–97; PULSE 60–84; RESP 14–23; TEMP 36.4–36.6; O2SAT 23–99; BMI 21.2; BMI 22.6
--- NOTE | 2025-01-27 14:55 | EKG12_ITS ---
Test Reason : AM EKG Blood Pressure : */* mmHG Vent. Rate : 59 BPM Atrial Rate : 59 BPM P-R Int : 220 ms QRS Dur : 82 ms QT Int : 502 ms P-R-T Axes : 72 49 96 degrees QTcB Int : 496 ms Sinus bradycardia with 1st degree A-V block with Premature supraventricular complexes Septal infarct , age undetermined ST & Marked T wave abnormality, consider anterolateral ischemia Abnormal ECG When compared with ECG of 29-Jan-2025 05:42, MANUAL COMPARISON REQUIRED DATA IS UNCONFIRMED Confirmed by JOSSELYN CHUA, TARI ([id number]), continuity editor CHARLES MATUTE ([id number]) on 02/01/2025 8:50:55 AM Referred By: Pradeep Frausto Confirmed By: TARI ARCOS MD
[2025-01-27] MEDS: Heparin Injection (Vial) 5,000 UNIT/ML VIAL 4000 UNIT IV (15:02)
[2025-01-27] MEDS: Nitroglycerin SL (ED/IMG/CATH) 0.4 MG TABLET SL (15:02)
--- NOTE | 2025-01-27 15:14 | EDS_ITS ---
HPI History of Present Illness Chief Complaint: Chest Pain Narrative Narrative: Chief complaint and HPI: 79-year-old male with no significant past medical history per his report on no medication presents from home for evaluation of chest pain. Onset of chest pain approximately 1 hour ago. Describes it as pressure and it radiates down his left arm with nausea and shortness of breath. States he took a baby aspirin prior to arrival. Review of systems: See HPI Medications: As listed on the chart Allergies: As listed on the chart PFSH: Per chart Vital signs: As listed on the chart. Reviewed. Physical exam: Gen: A&O x3 Head: Normocephalic, atraumatic Eyes: No sclera icterus, conjunctiva clear ENT: Moist mucous membranes Neck: Trachea midline CV: RRR, no murmurs Resp: Lungs CTA BL, no w/r/c GI: Abd soft, non-distended, non-tender, no r/r/g Musc: Moves all extremities Skin: Warm, diaphoretic Neuro: Alert, oriented, grossly intact Psych: Cooperative PFSH PFSH Medical History (Updated 08/17/24 @ 15:[address] Bethany Cedeno MD) Left ankle pain Unsteady Dizziness Chest pain Memory changes History of recent fall Smoker Weakness Dysuria Wears dentures Thyroid disease Insulin dependent diabetes mellitus Diabetes Kidney stones High cholesterol History of IBS Gastric reflux Chronic cough History of echocardiogram History of Holter monitoring Hypertension Cardiology follow-up encounter History of irregular heartbeat History of deviated nasal septum Abdominal pain HLD (hyperlipidemia) Cardiac murmur Cardiac murmur Ectopic atrial rhythm CHADWICK (obstructive sleep apnea) Hypothyroidism Type 2 diabetes mellitus H/O malignant neoplasm of thyroid Back problem Arthritis Home Medications Medication Instructions Recorded Last Taken Type ascorbic acid (vitamin C) 500 mg 500 mg PO DAILY suppl ement 02/13/18 02/22/20 History capsule cholecalciferol (vitamin D3) 125 5,000 unit PO DAILY s upplement 02/13/18 02/21/20 History mcg (5,000 unit) capsule [id number] 300 mcg-K 60 1 tab PO DAILY suppleme nt 02/13/18 02/21/20 History mcg-lycop 600 mcg-lutein 300 mcg tablet (Centrum Silver Men) atorvastatin 80 mg tablet 80 mg PO QHS 09/12/22 Unknow n History losartan 50 mg tablet 50 mg PO DAILY 09/12/22 Unkn own History pantoprazole 40 mg tablet,delayed 40 mg PO BID 3 Unknown History release insulin glargine 100 unit/mL (3 30 unit subcut DAILY 0 09/10/23 Unknown History mL) subcutaneous pen (Lantus Solostar U-100 Insulin) citalopram 10 mg tablet (Celexa) 10 mg PO DAILY #90 ta bs 11/21/23 Unknown Rx levothyroxine 125 mcg tablet 125 mcg PO DAILY thyroid #90 tabs 08/06/24 Unknown Rx Diclofenac NA 1% topical 08/07/24 Unknown His tory Mertaae Citicoline 100 mg PO DAILY 08/07/24 Unk nown History meloxicam 15 mg tablet 15 mg PO QDAY 08/07/24 Unkno wn History metformin 500 mg tablet 500 mg PO BID 08/07/24 Unkno wn History Allergy/AdvReac Type Severity Reaction Status Date / Time Penicillins Allergy Rash Verified 01/27/25 14:55 Family History Other Diabetes Surgical History Hx of surgical procedure History of laparoscopic cholecystectomy History of bilateral cataract extraction H/O thyroidectomy Social History Smoking Status: Current some day smoker tobacco type: cigarettes alcohol intake: current alcohol intake frequency: holidays/special occasions only substance use type: does not use caffeine: Yes Type: coffee Number of servings: 2 EXAM Physical Exam Const Vital Signs: 01/27/25 14:51 Temperature 98 F Temperature Source Oral Pulse Rate 66 Respiratory Rate 14 Blood Pressure 119/66 Blood Pressure Mean 83 Pulse Ox 99 Oxygen Delivery Method Room Air MDM MDM MDM Narrative Medical decision making narrative: 79-year-old male with no significant past medical history per his report on no medication presents from home for evaluation of chest pain. Onset of chest pain approximately 1 hour ago. Describes it as pressure and it radiates down his left arm with nausea and shortness of breath. States he took a baby aspirin prior to arrival. On presentation, patient is diaphoretic and clutching his chest. Immediate EKG was performed and shows anterior STEMI with elevations in V2 and V3 and reciprocal depressions in the inferior leads. This was personally reviewed and interpreted by me, ED physician. Patient immediately made a STEMI alert. EKG was also compared to previous EKG and elevations are new. Aspirin and nitro ordered. I spoke with Dr. Frausto on the phone and plan will be for [employer] Director. Agrees with full dose to heparin. He immediately came to the [facility] department and reviewed the EKG. Patient taken immediately to the [employer] Director. Laboratory workup drawn but yet resulted. Chest x-ray not yet performed. On chart review, patient has a past medical history of HTN, DM2, hypothyroidism, HLD, CHADWICK. Dr. Lechuga was consulted for admission and accepted. 10 minutes of critical care time utilized in managing the patient. This is due to high probability of and deterioration of the patient based on the patient's condition and excludes any separately billable procedures. Impression: 1. Anterior STEMI Discharge Plan Triage Chief Complaint: Chest Pain ED Provider: Dave Juarez Dx/Rx/DC Orders Primary Care Provider: Bethany Cedeno
--- NOTE | 2025-01-27 15:38 | CHAPLAIN ---
Type of Pastoral Visit ___ Initial Visit ___ Follow-up Visit ___ On-call Visit ___ General Patient Visit ___ Spiritual Assessment ___ Family Conference ___ Bereavement _x__ Rapid Response ___ Code Blue ___ Other (describe below) Pastoral Care Referral From ___ Patient ___ Family ___ Nurse ___ Physician ___ Customer Energy Specialist ___ Pipe [employer]iler Co[employer] Supervisor _x__ Other (describe below) Sacrament/Intervention _x__ Active listening ___ Anointing ___ Gnosticism ___ Bereavement ___ Communion ___ Betina exploration ___ ___ Life review ___ Prayer ___ Reconciliation ___ Sacrament of Sick _x__ Supportive presence ___ Wedding ___ Other (describe below) Pastoral Comments patient was a stemi alert and was found in the ED; co-worker brought the patient in and was in the room; as patient was taken to the Slasher Tender, this can feeder escorted friend to the waiting area of Slasher Tender; shortly after arrival in the Slas[facility] Tender, the son of pt arrived and was brought to the waiting room; both were offered presence, facilities, beverage, and given time to express the experience; both indicate that they are fine and are now just waiting for results
--- NOTE | 2025-01-27 15:39 | QUALITY_ITS ---
STEMI STEMI ED Door Time / Other REG STEMI EKG Time (1) ST elevation (STEMI) myocardial infarction involving left anterior de scending coronary artery: Acute 01/27/25 14:51 Balloon/Aspiration Date-Time Date of Balloon/Aspiration:: 01/27/25 Time of Balloon/Aspiration:: 15:26
[2025-01-27 15:40] LABS: Pro- Brain NATRIURETIC PEPTIDE 331 pg/mL (<=1800); Troponin T High Sensitivity 22 ng/L (<=22)
[2025-01-27 15:46] LABS: Anion Gap 17 (5-15); BUN 20 mg/dL (4-19); BUN/Creat Ratio 19.6 RATIO (10-20); Calcium,Total 9.2 mg/dL (7.6-11.0); Carbon Dioxide 21.2 mmol/L (21.0-32.0); Chloride 101 mmol/L (98-108); Estimated Creatinine Clearance 51.13 ml/min (50-250); Glucose 196 mg/dL (70-99); Hematocrit 48.7 % (40-54); Hemoglobin 16.5 g/dL (13.0-16.5); Immature Granulocytes Count 0.080 X10^3/uL (0.0-0.0); Mean Corp Hgb Conc 33.9 g/dL (32-36); Mean Corpuscular Volume 92.4 fL (80-94); Mean Platelet Vol. 10.3 fl (6.2-12.0); NRBC Flagged by Analyzer 0 % (0-5); POSITIVE DIFFERENTIAL YES; POSITIVE MORPHOLOGY YES; Platelet Count 313 K/mm3 (150-450); Potassium 4.0 mmol/L (3.3-5.1); RBC Distribution Width CV 13.5 % (11.6-14.6); RBC Distribution Width SD 46.1 fl (35.1-43.9); Red Blood Count 5.27 M/mm3 (4.6-6.2); White Blood Count 15.0 K/mm3 (4.4-11.0)
[2025-01-27 15:49] LABS: Prothrombin Time (Protime)PT. 12.5 SECONDS (11.7-14.9)
[2025-01-27 15:50] LABS: Partial Thromboplast Time 27.6 Seconds (24.1-36.2)
[2025-01-27 16:02] LABS: Differential Indicated SCAN CRITERIA MET
--- NOTE | 2025-01-27 16:56 | PCM.HP.STD ---
HPI - General General Date of Admission: 01/27/25 Date of Service: 01/27/25 Chief Complaint: Chest pain HPI Narrative MARIA DEL CARMEN AUGUSTIN, is a 79 M who presented to [facility] ED on 01/27/2025 with chest pain. Was found to have an anterior STEMI on EKG in the ED and was taken emergently to the Client Insights Consultant. Coronary angiography revealed severe multivessel disease with LAD being the culprit. LAD was heavily calcified and was treated with PTCA, lithotripsy and drug-eluting stent placement x 1. Patient was given stable post cath and taken to the ICU for further management. I saw the patient in the ICU shortly after he arrived up there, family member and friend at bedside. Patient was laying back comfortably in bed and in no acute distress. Denied any chest pain currently. Notably has had some ectopy with PVCs on telemetry post cath but denies any palpitations. He lives at home alone and his son lives in the area. He has several medications listed on his home med list but states he is only been taking his Synthroid regularly for the past several months. His PCP is Dr. Cedeno and last office visit was in July, and patient noted at that time as well but he was only taking Synthroid regularly. Dr. Cedeno had some concern for cognitive impairment and noted the patient was unclear on which medications he needed to be taking. A1c was 10.0% at that time and prior to that had been stable in the 7% range. Patient reports approximately 50 pound unintentional weight loss over the past several months. States he is often thirsty and drinks lots of water but his appetite has not been that great. He reports only occasional alcohol use. Denies any tobacco use. No other acute concerns currently. [facility] Medical History (Updated 01/27/25 @ 15:40 by Mauricio Poe) Left ankle pain Unsteady Dizziness Chest pain Memory changes History of recent fall Smoker Weakness Dysuria Wears dentures Thyroid disease Insulin dependent diabetes mellitus Diabetes Kidney stones High cholesterol History of IBS Gastric reflux Chronic cough History of echocardiogram History of Holter monitoring Hypertension Cardiology follow-up encounter History of irregular heartbeat History of deviated nasal septum Abdominal pain HLD (hyperlipidemia) Cardiac murmur Cardiac murmur Ectopic atrial rhythm CHADWICK (obstructive sleep apnea) Hypothyroidism Type 2 diabetes mellitus H/O malignant neoplasm of thyroid Back problem Arthritis Home Medications Medication Instructions Recorded Last Taken Type cholecalciferol (vitamin D3) 125 5,000 unit PO DAILY supplement 02/13/18 02/21/20 History mcg (5,000 unit) capsule Held on 01/27/25. Instructions: Pt has been DC'd [id number] 300 mcg-K 60 1 tab PO DAILY supplement 02/13/18 02/21/20 History mcg-lycop 600 mcg-lutein 300 mcg tablet (Centrum Silver Men) Held on 01/27/25. Instructions: Pt has been DC'd atorvastatin 80 mg tablet 80 mg PO QHS high cholesterol' 09/12/22 Unknown History Held on 01/27/25. Instructions: Pt has been DC'd losartan 50 mg tablet 50 mg PO DAILY pt unsure 09/12/22 Unknown History Held on 01/27/25. Instructions: Pt has been DC'd pantoprazole 40 mg tablet,delayed 40 mg PO BID gerd 09/12/22 Unknown History release Held on 01/27/25. Instructions: Pt has been DC'd insulin glargine 100 unit/mL (3 30 unit subcut DAILY blood sugar 09/10/23 Unknown History mL) subcutaneous pen (Lantus Solostar U-100 Insulin) Held on 01/27/25. Instructions: Pt has been DC'd citalopram 10 mg tablet (Celexa) 10 mg PO DAILY #90 tabs 11/21/23 Unknown Rx Held on 01/27/25. Instructions: Pt has been DC'd levothyroxine 125 mcg tablet 125 mcg PO DAILY thyroid #90 tabs 08/06/24 Unknown Rx Diclofenac NA 1% topical unsure 08/07/24 Unknown History Held on 01/27/25. Instructions: Pt has been DC'd Vitaae Citicoline 100 mg PO DAILY head bumps 08/07/24 Unknown History Held on 01/27/25. Instructions: Pt has been DC'd meloxicam 15 mg tablet 15 mg PO QDAY not sure 08/07/24 Unknown History Held on 01/27/25. Instructions: Pt has been DC'd metformin 500 mg tablet 500 mg PO BID blood sugar 08/07/24 Unknown History Held on 01/27/25. Instructions: Pt has been DC'd Allergy/AdvReac Type Severity Reaction Status Date / Time Penicillins Allergy Rash Verified 01/27/25 14:55 Family History Other Diabetes Surgical History (Updated 01/28/25 @ 08:40 by Kasey Lundberg) History of coronary artery stent placement (01/27/25) Hx of surgical procedure History of laparoscopic cholecystectomy History of bilateral cataract extraction H/O thyroidectomy Social History Smoking Status: Current some day smoker tobacco type: cigarettes alcohol intake: current alcohol intake frequency: holidays/special occasions only substance use type: does not use caffeine: Yes Type: coffee Number of servings: 2 ROS Constitutional Constitutional: Denies chills, fatigue, fever(s) or weakness Cardiovascular Cardiovascular: Denies chest pain, dyspnea on exertion, edema, lightheadedness or palpitations Respiratory/Chest Respiratory/Chest: Denies cough, shortness of breath at rest, shortness of breath with exertion or wheezing Gastrointestinal Gastrointestinal: Denies abdominal pain Musculoskeletal Musculoskeletal: Denies arthralgias or myalgias Neurologic Neurologic: Denies dizziness, focal weakness or headache(s) Vital Signs Vital Signs Vital Signs: 01/27/25 14:51 01/27/25 15:22 Temperature 98 F 98 F Temperature Source Oral Pulse Rate 66 66 Respiratory Rate 14 14 Blood Pressure 119/66 119/66 Blood Pressure Mean 83 83 Pulse Ox 99 99 Oxygen Delivery Method Room Air Weight Weight: 63.2 kg Body Mass Index (BMI) 21.2 Physical Exam Const alert, oriented x3, no apparent distress and average body habitus Constitutional Narrative: Elderly male, mildly fatigued appearing, alert and answering most questions with short appropriate responses, otherwise laying back comfortably in bed in no acute distress. General Appearance: cooperative and comfortable HEENT normocephalic, head/scalp atraumatic, hearing grossly normal bilaterally, nasal mucous membranes and turbinates normal and moist oral mucous membranes Eyes PERRL, EOMs intact bilaterally and conjunctivae normal Neck full ROM Chest inspection of chest normal Resp normal respiratory effort, normal air movement, no use of accessory muscles and clear to auscultation bilaterally Cardio regular rate, regular rhythm, no murmurs and peripheral pulses 2+ throughout GI normal to inspection, nondistended, normoactive bowel sounds, soft to palpation, non-tender and non-distended Back/Spine normal ROM Extremity normal to inspection, full ROM and no pedal edema Skin no rashes or lesions noted Psych mental status grossly normal Results Lab / Micro Data 01/28/25 06:05 01/28/25 06:05 Labs: Laboratory Results - last 24 hr 01/27/25 14:58: POC Glucose 173 H 01/27/25 14:59: WBC 15.0 H, RBC 5.27, Hgb 16.5, Hct 48.7, MCV 92.4, MCH 31.3, MCHC 33.9, RDW Std Deviation 46.1 H, RDW Coeff of Natalia 13.5, Plt Count 313, MPV 10.3, Immature Gran % (Auto) 0.500, Neut % (Auto) 48.0, Lymph % (Auto) 43.3 H, Wilkes % (Auto) 6.4, Eos % (Auto) 1.1, Baso % (Auto) 0.7, Absolute Neuts (auto) 7.2, Absolute Lymphs (auto) 6.51 H, Nucleated RBC % 0, PT 12.5, INR 0.9, APTT 27.6, Sodium 139, Potassium 4.0, Chloride 101, Carbon Dioxide 21.2, Anion Gap 17 H, BUN 20 H, Creatinine 1.03, Estim Creat Clear Calc 51.13, Est GFR (MDRD) Non-Af 73, BUN/Creatinine Ratio 19.6, Glucose 196 H, Calcium 9.2, Troponin T High Sens 22, NT pro BNP II 331 Assessment & Plan Assessment/Plan (1) ST elevation (STEMI) myocardial infarction involving left anterior descending coronary artery: PLAN: Plan Patient is an 79-year-old male who presented [facility] ED on 01/27/2025 for chest pain. 1. Anterior STEMI – Admit under inpatient status to ICU. Cardiology following. Presented with chest pain and EKG showed anterior STEMI. Emergent coronary angiography revealed severe multivessel disease with LAD lesion as the culprit; LAD was heavily calcified and was treated with PTCA, lithotripsy and drug-eluting stent placement x 1. Frequent PVCs noted on telemetry shortly after left heart cath but he was otherwise normotensive and stable on room air. Per cardiology, will treat with aspirin, Brilinta, high intensity statin and Lopressor. Echo ordered. Lipid panel, A1c and TSH ordered. Monitor cardiac function. Appreciate further cardiology recommendations. 2. Medication nonadherence with concern for cognitive impairment – Case management consulted. See HPI for further details. In short, patient lives at home alone and reports only taking Synthroid regularly for the past several months. His PCP was concerned he could be taking too high dose of Synthroid as well leading to hyperthyroid findings on labs as below. Suspect this has led to poorly controlled type 2 diabetes and consequently weight loss as below. Patient was answering my questions with short appropriate responses and was alert and oriented to person and place; did not ask him orientation questions related to time. Will need to discussed with patient and son who lives close by regarding importance of taking medications as prescribed especially post stent placement to ensure no recurrence of cardiac issues. 3. Poorly controlled type 2 diabetes mellitus – A1c 10.0% in July. Appears that prior to that A1c had been fairly stable in the 7% range. Suspect this is due to nonadherence to home insulin and metformin. Blood glucose 196 on admit. Repeat A1c ordered. Will treat with sliding scale insulin with meals for now, adjust as needed. Will hold his home long-acting insulin but can consider resuming this as needed. 4. Hypothyroidism – TSH and free T4 ordered. On most recent labs in July, TSH was low and free T4 was quite elevated. Follow-up repeat labs here. Will continue home Synthroid 125 mcg for now but if labs remain abnormal, will need to reduce dose accordingly. 5. Reported unintentional weight loss – Suspect this could be multifactorial from poor control diabetes and medication induced hyperthyroidism as above. Patient reports roughly 50 pound weight loss in the past several months. BMI 22 on admit. Will hold on nutrition consult for now. Further management as above. 6. Hypertension/hyperlipidemia – Will treat with low-dose Lopressor for now as well as high intensity statin. Was previously on losartan and triamterene but has been nonadherent to these for several months as above, will continue to hold for now. DVT prophylaxis: Lovenox CODE STATUS: Full code, verified Expected disposition: Home, TBD Total clinical time spent by myself addressing the patient's medical issues, reviewing all the data, and collaborating with patient's care team: 78 minutes. Charges/Coding Visit Charges Inpatient E&M: 79671 Init Hosp L3
[2025-01-27 17:06] LABS: ACT Activated Clotting Time 233 sec (74-137)
--- NOTE | 2025-01-27 17:13 | CON.PCM.CA_ITS ---
Assessment & Plan Assessment/Plan (1) ST elevation (STEMI) myocardial infarction involving left anterior descending coronary artery: PLAN: Treated with drug-eluting stent to the LAD. Patient is doing well at this time. We we will start him on aspirin, Brilinta, beta-ramu. Will continue his statin and ARB. Hold metformin for 48 to 72 hours. For his circumflex and RCA disease, we could initially consider medical treatment and consider revascularization if he has symptoms despite maximal medical therapy. HPI Consult Data Date of Consult: 01/27/25 HPI Narrative Reason for Consultation: STEMI HPI Narrative: MARIA DEL CARMEN AUGUSTIN, is a 79 M who presents [with chest pain and left arm pain. In the emergency room he was found to have anterior STEMI and a STEMI alert was called. Patient was evaluated in the emergency room and after discussing risks and benefits he was brought emergently to the cardiac Principal Technical Specialist where he underwent emergent coronary angiography which revealed severe multivessel disease with LAD being the culprit. LAD was heavily calcified and was treated with PTCA, lithotripsy and drug-eluting stent placement. Patient was doing well at the end of the procedure. He is being admitted to the CCU for further management.] [facility] Medical History (Updated 01/27/25 @ 15:40 by Mauricio Poe) Left ankle pain Unsteady Dizziness Chest pain Memory changes History of recent fall Smoker Weakness Dysuria Wears dentures Thyroid disease Insulin dependent diabetes mellitus Diabetes Kidney stones High cholesterol History of IBS Gastric reflux Chronic cough History of echocardiogram History of Holter monitoring Hypertension Cardiology follow-up encounter History of irregular heartbeat History of deviated nasal septum Abdominal pain HLD (hyperlipidemia) Cardiac murmur Cardiac murmur Ectopic atrial rhythm CHADWICK (obstructive sleep apnea) Hypothyroidism Type 2 diabetes mellitus H/O malignant neoplasm of thyroid Back problem Arthritis Home Medications Medication Instructions Recorded Last Taken Type ascorbic acid (vitamin C) 500 mg 500 mg PO DAILY suppl ement 02/13/18 02/22/20 History capsule cholecalciferol (vitamin D3) 125 5,000 unit PO DAILY s upplement 02/13/18 02/21/20 History mcg (5,000 unit) capsule [id number]-[id number] 300 mcg-K 60 1 tab PO DAILY suppleme nt 02/13/18 02/21/20 History mcg-lycop 600 mcg-lutein 300 mcg tablet (Centrum Silver Men) atorvastatin 80 mg tablet 80 mg PO QHS 09/12/22 Unknow n History losartan 50 mg tablet 50 mg PO DAILY 09/12/22 Unkn own History pantoprazole 40 mg tablet,delayed 40 mg PO BID 3 Unknown History release insulin glargine 100 unit/mL (3 30 unit subcut DAILY 0 09/10/23 Unknown History mL) subcutaneous pen (Lantus Solostar U-100 Insulin) citalopram 10 mg tablet (Celexa) 10 mg PO DAILY #90 ta bs 11/21/23 Unknown Rx levothyroxine 125 mcg tablet 125 mcg PO DAILY thyroid #90 tabs 08/06/24 Unknown Rx Diclofenac NA 1% topical 08/07/24 Unknown His tory Vitaae Citicoline 100 mg PO DAILY 08/07/24 Unk nown History meloxicam 15 mg tablet 15 mg PO QDAY 08/07/24 Unkno wn History metformin 500 mg tablet 500 mg PO BID 08/07/24 Unkno wn History Allergy/AdvReac Type Severity Reaction Status Date / Time Penicillins Allergy Rash Verified 01/27/25 14:55 Family History Other Diabetes Surgical History Hx of surgical procedure History of laparoscopic cholecystectomy History of bilateral cataract extraction H/O thyroidectomy Social History Smoking Status: Current some day smoker tobacco type: cigarettes alcohol intake: current alcohol intake frequency: holidays/special occasions only substance use type: does not use caffeine: Yes Type: coffee Number of servings: 2 Physical Exam Const alert and oriented x3 HEENT normocephalic Eyes no scleral icterus Resp normal respiratory effort Cardio regular rate Charges/Coding Visit Charges Inpatient E&M: 41673 Init Hosp L2 Objective Data Vital Signs: Vital Signs Temp Pulse Resp BP Pulse Ox O2 Del Method 97.7 F L 81 19 H 103/67 92 Room Air 01/27/25 17:07 01/27/25 17:07 01/27/25 17:07 01/27/25 17:07 01/27/25 17:07 01/27/25 17:07 Oxygen Delivery Method Room Air Weight: 139 lb 5.314 oz Body Mass Index (BMI) 21.2 Lab / Micro Data 01/27/25 14:59 01/27/25 14:59 Labs: Laboratory Results - last 24 hr 01/27/25 14:58: POC Glucose 173 H 01/27/25 14:59: WBC 15.0 H, RBC 5.27, Hgb 16.5, Hct 48.7, MCV 92.4, MCH 31.3, MCHC 33.9, RDW Std Deviation 46.1 H, RDW Coeff of Natalia 13.5, Plt Count 313, MPV 10.3, Immature Gran % (Auto) 0.500, Neut % (Auto) 48.0, Lymph % (Auto) 43.3 H, [place] % (Auto) 6.4, Eos % (Auto) 1.1, Baso % (Auto) 0.7, Absolute Neuts (auto) 7.2, Absolute Lymphs (auto) 6.51 H, Nucleated RBC % 0, PT 12.5, INR 0.9, APTT 27.6, Sodium 139, Potassium 4.0, Chloride 101, Carbon Dioxide 21.2, Anion Gap 17 H, BUN 20 H, Creatinine 1.03, Estim Creat Clear Calc 51.13, Est GFR (MDRD) Non- Af 73, BUN/Creatinine Ratio 19.6, Glucose 196 H, Calcium 9.2, Troponin T High Sens 22, NT pro BNP II 331 01/27/25 15:14: Activated Clotting Time 233 H Cardiology Labs/Tests 01/27/25 14:59: WBC 15.0 H, RBC 5.27, Hgb 16.5, Hct 48.7, MCV 92.4, MCH 31.3, MCHC 33.9, Plt Count 313, MPV 10.3, Immature Gran % (Auto) 0.500, Neut % (Auto) 48.0, Lymph % (Auto) 43.3 H, Aurora % (Auto) 6.4, Eos % (Auto) 1.1, Baso % (Auto) 0.7, Absolute Neuts (auto) 7.2, Nucleated RBC % 0, PT 12.5, INR 0.9, APTT 27.6, Sodium 139, Potassium 4.0, Chloride 101, Carbon Dioxide 21.2, Anion Gap 17 H, B UN 20 H, Creatinine 1.03, Est GFR (MDRD) Non-Af 73, BUN/Creatinine Ratio 19.6, G lucose 196 H, Calcium 9.2 Rhythm: EKG: ECHO: Stress Test: Cardiac Cath: PCI: CT Surgery: Holter monitor: EPS: PPM: CXR: Chest CT Scan: SUMMER Risk Score for UA/STEMI Assesmment (YES = 1) Risk Stratification Applicable: No
--- NOTE | 2025-01-27 17:15 | EKG12_ITS ---
Test Reason : post stemi Blood Pressure : */* mmHG Vent. Rate : 80 BPM Atrial Rate : * BPM P-R Int : * ms QRS Dur : 120 ms QT Int : 428 ms P-R-T Axes : * 106 3 degrees QTcB Int : 493 ms Critical Test Result: STEMI Junctional rhythm with occasional Premature ventricular complexes and Fusion complexes Anterolateral infarct , possibly acute ACUTE [place] / STEMI Abnormal ECG When compared with ECG of 27-Jan-2025 14:55, MANUAL COMPARISON REQUIRED DATA IS UNCONFIRMED Confirmed by NATASHA CHUA, DANK ([id number]), pictures editor SHELLI WISE ([id number]) on 02/01/2025 6:36:09 AM Referred By: Pradeep Frausto Confirmed By: DANK FRAUSTO MD
--- NOTE | 2025-01-27 17:21 | CRPHASE1_ITS ---
Patient Communication Patient Information Former Patient:: Phase I PHII Cardiac Rehab Discussed with Patient:: Yes Guide to Cardiac Rehab Given to Patient:: Yes Cardiac Rehab Facility Choice List Given to Patient:: Yes Communication to Cardiac Rehab Choice Program [facility] CR PHII:: Communication Given to CR Analysis Or Research Safety Inspector:: Pradeep Frausto Sessions:: 36 sessions - 3 days/wk, 12 weeks Medical/Surgical History Medical History [place]:: Yes Angina:: Yes CAD:: Yes Congestive Heart Failure:: No Cardiomyopathy:: No Valve Disease/Replacement:: No Pulmonary:: No COPD:: No Asthma:: No CHADWICK:: No Diabetes:: Yes Diabetes Type I:: No Diabetes Type II:: Yes Hypertension:: No Dyslipidemia:: No Arrhythmias:: No EPS:: No CVA/TIA: CEA:: No PE:: No DVT:: No PVD:: No PAD:: No Arthritis:: No GI:: No GERD:: No Cancer:: No Renal:: No Thyroid:: No Depression:: No Anxiety:: No Surgical History CABG: No PTCA:: Yes ICD:: No Pacemaker:: No Orthopedic:: No Cardiac Rehabilitation Info Program Information Cardiac Rehabilitation Program Information: Cardiac Rehab The cardiac rehab team at [facility] consists of highly skilled exercise physiologists, nurses, respiratory therapists and physicians working together with you. Our purpose is to help you have a full recovery and achieve the goals you set for yourself. Over the years many of our patients have returned to activities they assumed they would never do again! We can help restore your confidence and motivation to make lifestyle changes that can have a significant impact on your health and quality of life! We can help answer questions and concerns you may have about exercise, lifestyle, medications, diet, stress and anxiety which are common following a hospitalization. WE monitor ECG and vital signs during exercise and discuss your progress with you and report to your physician(s). Cardiac Rehab is proven to help reduce readmissions, improve functional capacity and lower recurrence of problems with your heart. Our Cardiac Rehab program is Certified by the [place] [employer]monary [employer] (AACVPR) and Accredited by the [place] [employer] through our [facility]. You can contact us at . We invite you to call us with your questions or to get started in our program. If you have other questions or concerns be sure to ask your physician/provider during your follow-up visit. WE look forward to seeing you!
--- NOTE | 2025-01-27 17:23 | CRPH1.INSTRU ---
General Education Discussed with Patient CAD and cardiac anatomy and function:: Patient communicates acknowledgment Explanation of diagnoses and procedures:: Patient communicates acknowledgment Sign/Symptoms of [place]:: Patient communicates acknowledgment Antiplatelet therapy: Patient communicates acknowledgment Proper use of NTG-SL: Patient communicates acknowledgment Emergency procedures and activation of EMS: Patient communicates acknowledgment Compliance of all prescribed medications: Patient communicates acknowledgment Smoking Risk Factors Patient Nicotine/Smoking Risk Factors Are:: Cigarettes Recommendations Recommendations Include:: Smoking cessation strategies/Smoking packet Response Code Nicotine/Smoking Response Code:: Patient communicates acknowledgment Dyslipidemia Recommendations Recommendations Include:: Lipid profile not available Overweight/Obesity Risk Factors Patient Overweight/Obesity Risk Factors Are:: BMI Normal [24-29 & > 65 years old] Hypertension Risk Factors Patient Hypertension Risk Factors Are:: No documented hx of HTN Heart Disease Risk Factors Patient Heart Disease Risk Factors Are:: Previous cardiac event Response Code Heart Disease Response Code:: Patient communicates acknowledgment Diabetes Risk Factors Patient Diabetes Risk Factors Are:: Elevated blood sugars Recommendations Recommendations Include:: Maintain HgbA1c of 6% or less Response Code Diabetes:: Patient communicates acknowledgment Metabolic Syndrome Recommendations Recommendations Include:: Reinforce compliance to risk factor modifications Sedentary Recommendations Recommendations Include:: Aerobic exercise 5-7 times/week for 20-30 minutes continuously, Benefits of regular exercise and Monitored Outpatient Cardiac Rehab Response Code Sedentary Response Code:: Patient communicates acknowledgment Stress Recommendations Recommendations Include:: Identification of stressors, and assessment of coping skills Response Code Stress Response Code:: Patient communicates acknowledgment
--- NOTE | 2025-01-27 17:30 | RAD_ITS ---
PROCEDURE: CHEST 1 VIEW (PORTABLE) 01/27/2025 REASON FOR EXAM: CHEST PAIN TECHNIQUE: Frontal view of the chest. COMPARISON: 04/21/2021 FINDINGS: Lungs/Pleura: No focal consolidation, pneumothorax or sizable pleural effusion. 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 Heart/Mediastinum: Within normal limits. No significant vascular congestion. Bones/Soft tissues: Mild degenerative changes of the spine. RAD/Chest 1 View (Portable) IMPRESSION: No evidence of acute cardiopulmonary disease. 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 Reading Location: [id number]
[2025-01-27] MEDS: 0.9% Normal Saline (1000mL) 1,000 ML 150 ML IV (18:04)
[2025-01-27] MEDS: 0.9% Saline Lock 10 ML Syringe IV (18:05)
--- NOTE | 2025-01-27 19:58 | ECHOCS_ITS ---
Reason For Study Reason For Study: STEMI Procedure This was a 2D Doppler, Color Flow transthoracic echocardiogram. Myocardial strain analysis was performed in this exam to aid in the assessment of cardiac function. Contrast injection was performed. Exam performed portable in ICU/CCU. Left Ventricle Mild concentric left ventricular hypertrophy. Normal LV size. The global longitudinal strain = -10.5% (abnormal). Mid to distal anterior septal akinesis. Anterior apical akinesis. Estimated LVEF 40%. Stage I diastolic dysfunction. Right Ventricle Normal right ventricle. Atria The left atrium is mildly enlarged. Normal right atrium. Mitral Valve Mild (1+) mitral valve insufficiency. Tricuspid Valve Trivial tricuspid valve insufficiency. Unable to estimate RV systolic pressure due to insufficient tricuspid regurgitant envelope. Aortic Valve Mildly calcified aortic valve. Mild aortic valve stenosis with mean peak gradient 8 mmHg. Mild to moderate aortic valve regurgitation. Pulmonic Valve The pulmonic valve is not well visualized. Great Vessels Normal sized aortic root. Pericardium/Pleural No pericardial effusion. Medication Diluted definity 1.5ml given slow IV push to enhance endocardial definition. MMode/2D Measurements & Calculations LVIDd: 4.4 cm IVSd: 1.2 cm LVOT diam: 2.0 cm LVIDs: 3.6 cm LVPWd: 1.2 cm RVDd: 3.5 cm FS: 19.6 % LVOT area: 3.0 cm2 Ao root diam: 3.4 cm LAV(MOD-bp): 58.1 ml LVAd ap4: 37.7 cm2 LAV(MOD-bp) Indexed: 32.4 ml/m2 LVLd ap4: 7.7 cm LAV(MOD-sp2): 60.5 ml EDV(MOD-sp4): 150.8 ml LAV(MOD-sp4): 48.2 ml EDV(sp4-el): 156.9 ml LVAs ap4: 26.7 cm2 LVLs ap4: 7.0 cm ESV(MOD-sp4): 82.5 ml ESV(sp4-el): 86.7 ml EF(MOD-sp4): 45.3 % EF(sp4-el): 44.7 % SV(MOD-sp4): 68.4 ml SV(sp4-el): 70.2 ml LA A4 area: 16.8 cm2 SI(MOD-sp4): 38.1 ml/m2 LA dimension(2D): 4.2 cm RA A4 area: 16.7 cm2 TAPSE: 2.3 cm Time Measurements MV dec time: 0.24 sec Doppler Measurements & Calculations MV E max juni: 77.5 cm/sec Lat Peak E' Juni: 5.7 cm/sec Med Peak E' Juni: 5.1 cm/sec MV A max juni: 69.1 cm/sec E/E' lat: 13.7 E/E' med: 15.2 MV E/A: 1.1 MV V2 max: 98.9 cm/sec MV P1/2t max juni: 99.5 cm/sec Ao V2 max: 190.2 cm/sec MV max P.9 mmHg MV P1/2t: 83.2 msec Ao max P.5 mmHg MV V2 mean: 52.7 cm/sec MV dec slope: 350.4 cm/sec2 Ao V2 mean: 127.9 cm/sec MV mean P.3 mmHg MVA(P1/2t): 2.6 cm2 Ao mean P.6 mmHg MV V2 VTI: 30.0 cm Ao V2 VTI: 40.9 cm MVA(VTI): 2.2 cm2 AV (velocity ratio): 0.54 JENIFER(I,D): 1.6 cm2 JENIFER(V,D): 1.5 cm2 AI max juni: 325.3 cm/sec LV V1 max: 95.5 cm/sec SV(LVOT): 66.0 ml AI max P.1 mmHg LV V1 max P.7 mmHg LV V1 mean P.1 mmHg AI dec slope: 225.5 cm/sec2 LV V1 mean: 68.2 cm/sec AI P1/2t: 422.6 msec LV V1 VTI: 21.9 cm PA V2 max: 77.3 cm/sec ECHO/Echo Complete W/ Contrast Interpretation Summary Mild concentric left ventricular hypertrophy. Mid to distal anterior septal akinesis. Anterior apical akinesis. Estimated LVE F 40%. Stage I diastolic dysfunction.The global longitudinal strain = -10.5% (abnormal). The left atrium is mildly enlarged. Mild (1+) mitral valve insufficiency. Mildly calcified aortic valve. Mild aortic valve stenosis with mean peak gradie nt 8 mmHg. Mild to moderate aortic valve regurgitation. Ordering Physician: Perico Lechuga Referring Physician: Pradeep Frausto Performed By: Dave Evans RCS
[2025-01-27 20:04] LABS: Differential Comment SCANNED
[2025-01-27] MEDS: TICAGRELOR 90 MG TABLET PO (22:09)
--- NOTE | 2025-01-27 22:47 | EKG12_ITS ---
Test Reason : Chest Pain Blood Pressure : */* mmHG Vent. Rate : 62 BPM Atrial Rate : 62 BPM P-R Int : 216 ms QRS Dur : 70 ms QT Int : 444 ms P-R-T Axes : -76 57 73 degrees QTcB Int : 450 ms Possible Ectopic atrial rhythm Septal infarct , age undetermined T wave abnormality, consider anterior ischemia Abnormal ECG No previous ECGs available Confirmed by NATASHA CHUA, DANK ([id number]), writer editor SHELLI WISE ([id number]) on 02/01/2025 6:37:59 AM Referred By: Pradeep Frausto Confirmed By: DANK FRAUSTO MD
[2025-01-27] MEDS: Nitroglycerin (INPATIENT USE) 0.4 MG TAB.SUBL SL ×3 (23:25→23:44)
[2025-01-28] VITALS (23 sets, daily range): BP systolic 102–138; BP diastolic 49–70; PULSE 54–67; RESP 12–23; TEMP 36.6–36.9; O2SAT 88–99; BMI 23.4
[2025-01-28 06:15] LABS: Hematocrit 43.5 % (40-54); Hemoglobin 15.5 g/dL (13.0-16.5); Mean Corp Hgb Conc 35.6 g/dL (32-36); Mean Corpuscular Volume 89.3 fL (80-94); Mean Platelet Vol. 9.9 fl (6.2-12.0); Platelet Count 250 K/mm3 (150-450); RBC Distribution Width CV 13.4 % (11.6-14.6); RBC Distribution Width SD 44.3 fl (35.1-43.9); Red Blood Count 4.87 M/mm3 (4.6-6.2); White Blood Count 13.7 K/mm3 (4.4-11.0)
[2025-01-28 06:58] LABS: AST(SGOT) 300 U/L (<=37); Alanine Aminotransfer ALT/SGPT 31 U/L (<=46); Albumin, Serum 3.7 g/dL (3.4-4.8); Alkaline Phosphatase 103 U/L (40-129); Anion Gap 15 (5-15); BUN 20 mg/dL (4-19); BUN/Creat Ratio 22.2 RATIO (10-20); Calcium,Total 8.9 mg/dL (7.6-11.0); Carbon Dioxide 19.3 mmol/L (21.0-32.0); Chloride 103 mmol/L (98-108); Estimated Creatinine Clearance 60.53 ml/min (50-250); Globulin 2.5 g/dL (2.2-4.2); Glucose 160 mg/dL (70-99); Potassium 4.4 mmol/L (3.3-5.1)
--- NOTE | 2025-01-28 08:24 | PCM.PN.CARD ---
Subjective Subjective Patient presented yesterday to the emergency department with an anterior septal microinfarction as a STEMI. He was taken to the Recep and successfully reperfused with a difficult procedure with a heavily calcified left anterior descending system. This morning the patient reports that he is doing fairly well he does have some cognitive impairment that makes it difficult to get an accurate history. He had been on medications for his diabetes but at his last office visit with his primary care physician he was noted to only be taking his thyroid replacement therapy. His hemoglobin A1c had gone from 7 up to 10. The patient lives alone and is really not aware of what medications he is taking. The patient did report he had some of the sensation that was very light like he had felt when he came to the hospital but his ECG shows an evolving anterior septal infarct and no new ST elevation. Objective Data Vital Signs: Vital Signs Temp Pulse Resp BP Pulse Ox O2 Del Method 97.5 F L 65 13 110/60 99 Room Air 01/27/25 23:00 01/28/25 07:00 01/28/25 07:00 01/28/25 07:00 01/28/25 07:00 01/28/25 07:00 Oxygen Delivery Method Room Air Weight: 151 lb 0.266 oz Body Mass Index (BMI) 23.4 Intake & Output: Intake and Output for Last 24 Hours 01/26/25 01/27/25 01/28/25 23:59 23:59 23:59 Intake Total 1000 / 1000 Output Total 550 / 550 200 / 200 Balance -550 / -550 800 / 800 Lab / Micro Data Attestation: I reviewed the patient's lab results. 01/28/25 06:05 01/28/25 06:05 Labs: Laboratory Results - last 24 hr 01/27/25 14:58: POC Glucose 173 H 01/27/25 14:59: WBC 15.0 H, RBC 5.27, Hgb 16.5, Hct 48.7, MCV 92.4, MCH 31.3, MCHC 33.9, RDW Std Deviation 46.1 H, RDW Coeff of Natalia 13.5, Plt Count 313, MPV 10.3, Immature Gran % (Auto) 0.500, Neut % (Auto) 48.0, Lymph % (Auto) 43.3 H, [place] % (Auto) 6.4, Eos % (Auto) 1.1, Baso % (Auto) 0.7, Absolute Neuts (auto) 7.2, Absolute Lymphs (auto) 6.51 H, Nucleated RBC % 0, Differential Comment SCANNED, Platelet Estimate ADEQUATE, PT 12.5, INR 0.9, APTT 27.6, Sodium 139, Potassium 4.0, Chloride 101, Carbon Dioxide 21.2, Anion Gap 17 H, BUN 20 H, Creatinine 1.03, Estim Creat Clear Calc 51.13, Est GFR (MDRD) Non-Af 73, BUN/Creatinine Ratio 19.6, Glucose 196 H, Hemoglobin A1c 7.4 H, Calcium 9.2, Troponin T High Sens 22, NT pro BNP II 331, TSH 91.100 H, Free T4 0.80 01/27/25 15:14: Activated Clotting Time 233 H 01/27/25 22:04: POC Glucose 146 H 01/28/25 06:05: WBC 13.7 H, RBC 4.87, Hgb 15.5, Hct 43.5, MCV 89.3, MCH 31.8, MCHC 35.6 D, RDW Std Deviation 44.3 H, RDW Coeff of Natalia 13.4, Plt Count 250, MPV 9.9, Sodium 136, Potassium 4.4, Chloride 103, Carbon Dioxide 19.3 L, Anion Gap 15, BUN 20 H, Creatinine 0.91, Estim Creat Clear Calc 60.53, Est GFR (MDRD) Non-Af 86, BUN/Creatinine Ratio 22.2 H, Glucose 160 H, Calcium 8.9, Total Bilirubin 0.57, AST 300 H, ALT 31, Alkaline Phosphatase 103, Total Protein 6.2, Albumin 3.7, Globulin 2.5, Albumin/Globulin Ratio 1.5 Rhythm Strip Rhythm Strip: Sinus Rhythm Rate: 71 Cardiology Labs/Tests 01/27/25 14:59: WBC 15.0 H, RBC 5.27, Hgb 16.5, Hct 48.7, MCV 92.4, MCH 31.3, MCHC 33.9, Plt Count 313, MPV 10.3, Immature Gran % (Auto) 0.500, Neut % (Auto) 48.0, Lymph % (Auto) 43.3 H, [place] % (Auto) 6.4, Eos % (Auto) 1.1, Baso % (Auto) 0.7, Absolute Neuts (auto) 7.2, Nucleated RBC % 0, PT 12.5, INR 0.9, APTT 27.6, Sodium 139, Potassium 4.0, Chloride 101, Carbon Dioxide 21.2, Anion Gap 17 H, BUN 20 H, Creatinine 1.03, Est GFR (MDRD) Non-Af 73, BUN/Creatinine Ratio 19.6, Glucose 196 H, Hemoglobin A1c 7.4 H, Calcium 9.2 01/28/25 06:05: WBC 13.7 H, RBC 4.87, Hgb 15.5, Hct 43.5, MCV 89.3, MCH 31.8, MCHC 35.6 D, Plt Count 250, MPV 9.9, Sodium 136, Potassium 4.4, Chloride 103, Carbon Dioxide 19.3 L, Anion Gap 15, BUN 20 H, Creatinine 0.91, Est GFR (MDRD) Non-Af 86, BUN/Creatinine Ratio 22.2 H, Glucose 160 H, Calcium 8.9, Total Bilirubin 0.57 Rhythm: EKG: ECHO: Stress Test: Cardiac Cath: PCI: CT Surgery: Holter monitor: EPS: PPM: CXR: Chest CT Scan: Radiography Diagnostic Testing: Radiology Impression Chest X-Ray 01/27/25 17:30 IMPRESSION: No evidence of acute cardiopulmonary disease. 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 Reading Location: [facility] Physical Exam Const alert Constitutional Narrative: Has trouble answering questions and seems pleasantly confused. HEENT normocephalic Eyes EOMs intact bilaterally Neck no JVD and no carotid bruits Chest inspection of chest normal Resp normal respiratory effort Auscultation: diminished lung sounds bilateral lower Cardio Cardio Narrative: Distant heart tones Rate: regular rate Rhythm: regular rhythm Heart Sounds: S1 normal and S2 normal; Negative for click, gallop or murmur Peripheral Pulses: radial pulses present right 1+ GI normal to inspection, nondistended, normoactive bowel sounds Extremity no pedal edema Extremity Narrative: Right wrist intact with normal sensation and capillary refill of the right hand Neuro Neuro Narrative: Alert seems to know where he is but is very slow to answer questions and is confused about his past medical history and medications. Psych Psych Narrative: Patient appears to have some cognitive impairment. Assessment & Plan Assessment/Plan (1) ST elevation (STEMI) myocardial infarction involving left anterior descending coronary artery: PLAN: Patient presented with a ST elevation in anterior septal myocardial infarction. He underwent successful reperfusion with stenting of the left anterior descending which was a heavily calcified complicated procedure. The patient's cognitive impairment makes accurate assessment a little difficult. It does appear he had some mild symptoms earlier this morning and an ECG was done which showed an evolving anterior septal infarct that would be as expected for someone who had been reperfused within the last 12 hours. There was no new ST segment elevation documented. It is imperative that the patient remain on dual antiplatelet therapy uninterrupted for a year. The patient lives alone and does have some cognitive impairment and this will need to be assessed and the mechanism found to ensure that he gets his medications. There was a recent documentation in the chart by his primary care physician that the patient was not taking his meds in his home environment due to confusion. The patient's statin therapy has been intensified to atorvastatin 80 mg daily. Fasting lipids and liver functions will need to be evaluated in 6 to 12 weeks. Losartan will be continued and metoprolol has been added to his medical regimen. LV function is being evaluated by echocardiogram today. The patient will need to follow-up in the [place] [facility] office in 7 to 10 days after discharge. At that time we will titrate LV recovery medications as blood pressure and heart rate will tolerate. (2) Memory changes: PLAN: Recommend a formal cognitive assessment. This will be ordered to be completed by speech therapy. (3) Essential hypertension: PLAN: Patient's blood pressure is well-controlled on his current medical therapy. The patient is on losartan in his home environment that should be continued. Metoprolol 12.5 mg tartrate twice daily was added for LV recovery. (4) DM w/o complication type II: PLAN: Patient's hemoglobin A1c on admission was 7.4. He should be continued on his home medical therapy. This is managed through the primary service. (5) Hypothyroidism (acquired): PLAN: Patient's TSH was elevated 94 on admission however his T4 is normal at 0.8. Further management will be deferred to the primary service. PLAN: Plan 1. Continue current medical regiment as listed. 2. Patient will need a cognitive evaluation prior to discharge. It is imperative that he continue to take his medications as prescribed especially the dual antiplatelet therapy. 3. Patient should follow-up in the [facility] office with one of the nurse practitioners in 7 to 10 days after discharge. 4. Will defer further evaluation and recommendations considering the cognitive impairment to the primary service. Charges/Coding Visit Charges Inpatient E&M: 83853 Subs Hosp L3
[2025-01-28] MEDS: Aspirin E.C. 81 MG Tablet PO (08:29)
[2025-01-28] MEDS: TICAGRELOR 90 MG TABLET PO ×2 (08:29→22:54)
[2025-01-28] MEDS: 0.9% Saline Lock 10 ML Syringe IV (08:31)
--- NOTE | 2025-01-28 10:00 | EKG12_ITS ---
Test Reason : CP Blood Pressure : */* mmHG Vent. Rate : 57 BPM Atrial Rate : 57 BPM P-R Int : 242 ms QRS Dur : 76 ms QT Int : 520 ms P-R-T Axes : 61 58 94 degrees QTcB Int : 506 ms Sinus bradycardia with sinus arrhythmia with 1st degree A-V block Anteroseptal infarct , age undetermined ST & T wave abnormality, consider lateral ischemia Prolonged QT Abnormal ECG When compared with ECG of 28-Jan-2025 06:03, MANUAL COMPARISON REQUIRED DATA IS UNCONFIRMED Confirmed by NATASHA CHUA, DANK ([id number]), index editor SHELLI WISE ([id number]) on 02/01/2025 6:33:49 AM Referred By: Pradeep Frausto Confirmed By: DANK FRAUSTO MD
--- NOTE | 2025-01-28 10:34 | CASEMGMT ---
JOE BRONSON Assessment Face to Face with patient for initial transition planning/care coordination assessment. JOE BRONSON introduced self and role at [facility], pt voices understanding. Pt is A&Ox4 and is resting comfortably in bed and is calm. Care providers, pharmacy, and demographics verified. Admitting dx: LOIS IBARRA Strata: 2 PCP: Bethany Cedeno Specialists: Denies Preferred Pharmacy: [facility] Insurance: [facility] A/B, [place] [employer] [place] Prescription Benefit: Yes LNOK: Mekhi (Son) Living Arrangements: Pt lives alone in a ranch style home with a flat entrance ADLs/IADLs: Indep, 6-Click score is 24 Transportation: Self, son DME: functioning BGM with sufficient testing supplies including lancets, test strips, and EtOH swabs. Denies further DME uses or needs HHC/SNF: Denies hx or needs Pt’s goal: Home Plan: Anticipate home once medically ready. Follow for anticoag. Follow ST evaluation for cognitive assessment. Per chart review and ICU rounds, pt has not been compliant in taking all of his medications. This RN CM inquired why the pt has been doing this. Pt states, "I just didn't feel like I needed to." Pt understands the importance of taking his rxs and denies financial issues. Moving forward, pt states that he feels safe returning home alone once medically ready and denies the need for HH, OP Tx, or any other resources or therapy needs. Pt denies further questions or concerns. Dewey [place] RN, CM
--- NOTE | 2025-01-28 13:31 | NURSING ---
Pt frustrated with speech therapy cognitive evaluation. Speech left the room and a few minutes later pt chair alarm going off. States "I will leave. I feel like this is a skilled nursing." Charge nurse Mayuri sitting with patient, providing emotional support and educating on POC. This RN called the son and notified Dr. Verdin. Patient confused and informed he cannot leave, he is agreeing to stay at this time.
--- NOTE | 2025-01-28 14:59 | CASEMGMT ---
Social Work SW met with pt's son Mekhi and introduced self and role of SW. Mekhi confirms that pt lives at home alone. Pt cares for himself and does not receive help from others. Pt drives and is active in the community as he wishes. AUBREY broached the topic of pt's cognition with Mekhi as staff is reporting that pt is confused and there are concerns pt is not taking medications at home correctly. Speech Therapy eval ordered for cognition and pt scored 26/50 on BCAT indicating moderate cognitive communication deficit. Mekhi states that he has noticed increased confusion and forgetfulness with pt over the last year. Mekhi also states that pt has not been eating well and has had a significant weight loss. Mekhi lives near pt but up to this point, pt has been caring for himself without assistance. AUBREY explained to Mekhi staff and physician concerns with pt returning home alone without supervision. AUBREY discussed concerns with medication management and the likelihood pt was not taking medication as prescribed. AUBREY offered home health SN, however son states pt is not home bound. AUBREY presented option of the [facility] to assist with medication set up and health high school football coach check in's. Mekhi is noncommittal to [facility] at this time. AUBREY discussed private duty aids. Mekhi is open to assistance from the [place], pt utilizes the [facility]. Mekhi also expressing concerns about pt's diet and that pt has not been eating well. Discharge plan is for pt to return home. Mekhi is aware that pt needs additional supervision, especially with medications and Mekhi is able to acknowledge that driving may be becoming an issue. Mekhi mentions that there may be people that are willing to stop in daily to check on pt and to monitor medications. Mekhi would like to speak with the physician regarding pt's current medical status. Nurse is aware and has reached out to physician. Referral made to coal yard supervisor. left with AUBREY Oliveira at [facility] to discuss possibility of assistance at home. ERIK Melgar
--- NOTE | 2025-01-28 14:59 | CASEMGMT ---
This JOE BRONSON was notified by [facility] Insurance Precert Service Inspector that the pt has [facility] coverage but wants the MCR and mutual of tab to be billed and not the [facility]. JOE BRONSON to the pt room at this time and pt signed the declination form. Form faxed to the [facility] at this time.
--- NOTE | 2025-01-28 16:54 | PCM.PROGNOTE ---
Subjective Subjective Patient seen and examined earlier in the day with his son by his bedside. Patient was admitted with a complaint of ST elevation NC and had cardiac cath with insertion of stent in the LAD. Patient had no active complaints this morning. He said he lives alone. He claims compliance with some of his meds but not all of them. He had no other complaints and review of systems otherwise negative. Objective Data Objective Data Vital Signs: Vital Signs Temp Pulse Resp BP Pulse Ox O2 Del Method 97.5 F L 65 15 107/55 L 97 Room Air 01/27/25 23:00 01/28/25 16:00 01/28/25 16:00 01/28/25 16:00 01/28/25 16:00 01/28/25 16:00 Oxygen Delivery Method Room Air Weight: 151 lb 0.266 oz Body Mass Index (BMI) 23.4 Intake & Output: Intake and Output for Last 24 Hours 01/26/25 01/27/25 01/28/25 23:59 23:59 23:59 Intake Total 1000 / 1000 Output Total 550 / 550 775 / 775 Balance -550 / -550 225 / 225 Lab / Micro Data 01/28/25 06:05 01/28/25 06:05 Labs: Laboratory Results - last 24 hr 01/27/25 14:59: Differential Comment SCANNED, Platelet Estimate ADEQUATE, Hemoglobin A1c 7.4 H, TSH 91.100 H, Free T4 0.80 01/27/25 15:14: Activated Clotting Time 233 H 01/27/25 22:04: POC Glucose 146 H 01/28/25 06:05: WBC 13.7 H, RBC 4.87, Hgb 15.5, Hct 43.5, MCV 89.3, MCH 31.8, MCHC 35.6 D, RDW Std Deviation 44.3 H, RDW Coeff of Natalia 13.4, Plt Count 250, MPV 9.9, Sodium 136, Potassium 4.4, Chloride 103, Carbon Dioxide 19.3 L, Anion Gap 15, BUN 20 H, Creatinine 0.91, Estim Creat Clear Calc 60.53, Est GFR (MDRD) Non-Af 86, BUN/Creatinine Ratio 22.2 H, Glucose 160 H, Calcium 8.9, Total Bilirubin 0.57, AST 300 H, ALT 31, Alkaline Phosphatase 103, Total Protein 6.2, Albumin 3.7, Globulin 2.5, Albumin/Globulin Ratio 1.5 01/28/25 08:25: POC Glucose 146 H 01/28/25 11:10: POC Glucose 172 H Radiography Diagnostic Testing: Radiology Impression Chest X-Ray 01/27/25 17:30 IMPRESSION: No evidence of acute cardiopulmonary disease. 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 Reading Location: [facility] Echocardiogram 01/27/25 19:58 Interpretation Summary Mild concentric left ventricular hypertrophy. Mid to distal anterior septal akinesis. Anterior apical akinesis. Estimated LVEF 40%. Stage I diastolic dysfunction.The global longitudinal strain = -10.5% (abnormal). The left atrium is mildly enlarged. Mild (1+) mitral valve insufficiency. Mildly calcified aortic valve. Mild aortic valve stenosis with mean peak gradient 8 mmHg. Mild to moderate aortic valve regurgitation. Ordering Physician: Perico Lechuga Referring Physician: Pradeep Frausto Performed By: Dave Evans RCS Rhythm Strip Rhythm Strip: Sinus Rhythm Rate: 71 Physical Exam Const alert and no apparent distress Constitutional Narrative: Able to carry on a conversation the patient is confused. HEENT normocephalic, head/scalp atraumatic, moist oral mucous membranes and oropharynx normal Eyes EOMs intact bilaterally Neck supple Lymph Lymphatic: no lymphedema noted Resp normal respiratory effort, normal air movement and clear to auscultation bilaterally Cardio regular rate, regular rhythm, S1 normal heart sound, S2 normal heart sound and no murmurs GI normal to inspection, nondistended, normoactive bowel sounds, soft to palpation, non-tender and non-distended Extremity normal capillary refill, no clubbing, cyanosis or edema and no calf tenderness General Extremity: no tenderness to palpation of joints or extremities Skin General Skin Exam: no breakdown Neuro CN's II-XII intact bilaterally and no focal motor deficits Motor Exam: general weakness Psych cooperative and affect normal Psych Narrative: Patient has episodic confusion. Mood & Affect: flat affect Assessment & Plan Assessment/Plan (1) ST elevation (STEMI) myocardial infarction involving left anterior descending coronary artery: (2) History of coronary artery stent placement: PLAN: Plan #ST elevation NC s/p cardiac cath Patient admitted with complaint of chest pain and found to be in ST elevation NC yesterday. He had emergent cardiac cath which showed a heavily calcified left anterior descending system and he had a stent inserted. On aspirin and high intensity statin as well as Brilinta. Cardiology on board. 2D echo done today showed mild concentric left ventricular hypertrophy with anterior apical akinesis and EF of 40% with stage I diastolic dysfunction and mild to moderate aortic valve regurgitation. Also on metoprolol 12.5 mg twice daily. #Hyperlipidemia: On statin #Hypertension: On on metoprolol 12.5 mg twice daily. #Type 2 diabetes mellitus: On Lantus 30 units daily. Insulin sliding scale. Accu-Cheks ACHS. Also on metformin but this was held because he received contrast with a cath. A1c 7.4.. #Depression: On citalopram #Hypothyroidism: On Synthroid. TSH is 91. It is not clear that patient has been compliant with his medication. However I will recheck the TSH tomorrow morning to make sure these values are accurate before making any changes in his medication doses. DVT prophylaxis: Lovenox #Disposition: Patient lives alone. His son did request to speak to me later today. I met patient's son with his nurses. Son said patient had been noted to have a cognitive decline over the last year. He also falls very often at home. Patient has not been eating well and son says since COVID he has lost about 100 pounds despite not eating well. Patient also resumed smoking. Basically patient has not been able to care for himself very well at home. Son said patient is very strong-willed and will likely refuse any placement. Patient had a cognitive test done at bedside today which she failed. Will consult PT OT to evaluate patient to give recommendations about whether patient is safe to go home or otherwise. Son is agreeable to this. Son said if patient chooses to go home, he would want home health to help with patient's medications and son said he would be able to provide some assistance during the 24-hour assistance. Son informed that since patient failed his cognitive testing he may not have the capacity to be able to make decisions for himself and so his next of kin may have to step in and help make decisions. Transferred to PCU. Charges/Coding Visit Charges Inpatient E&M: 94428 Subs Hosp L2
[2025-01-28] MEDS: Glucerna Shake 120 ML LIQUID PO (17:50)
--- NOTE | 2025-01-28 18:59 | EKG12_ITS ---
Test Reason : AM EKG Blood Pressure : */* mmHG Vent. Rate : 57 BPM Atrial Rate : 57 BPM P-R Int : 220 ms QRS Dur : 78 ms QT Int : 524 ms P-R-T Axes : 85 36 88 degrees QTcB Int : 510 ms Sinus bradycardia with 1st degree A-V block Anteroseptal infarct , age undetermined ST & T wave abnormality, consider lateral ischemia Prolonged QT Abnormal ECG When compared with ECG of 28-Jan-2025 19:10, MANUAL COMPARISON REQUIRED DATA IS UNCONFIRMED Confirmed by NATASHA CHUA, DANK ([id number]), video editor SHELLI WISE ([id number]) on 02/01/2025 6:33:24 AM Referred By: Pradeep Frausto Confirmed By: DANK FRAUSTO MD
[2025-01-29] VITALS (7 sets, daily range): BP systolic 113–122; BP diastolic 57–71; PULSE 54–71; RESP 16–18; TEMP 36.6–36.7; O2SAT 93–99; BMI 22.7
[2025-01-29] MEDS: MELATONIN 3 MG TABLET PO (01:46)
[2025-01-29 05:00] LABS: Hematocrit 43.0 % (40-54); Hemoglobin 15.3 g/dL (13.0-16.5); Immature Granulocytes Count 0.060 X10^3/uL (0.0-0.0); Mean Corp Hgb Conc 35.6 g/dL (32-36); Mean Corpuscular Volume 88.8 fL (80-94); Mean Platelet Vol. 10.7 fl (6.2-12.0); NRBC Flagged by Analyzer 0 % (0-5); Platelet Count 233 K/mm3 (150-450); RBC Distribution Width CV 13.2 % (11.6-14.6); RBC Distribution Width SD 43.5 fl (35.1-43.9); Red Blood Count 4.84 M/mm3 (4.6-6.2); White Blood Count 13.2 K/mm3 (4.4-11.0)
[2025-01-29 05:27] LABS: Anion Gap 14 (5-15); BUN 20 mg/dL (4-19); BUN/Creat Ratio 22.6 RATIO (10-20); Calcium,Total 8.7 mg/dL (7.6-11.0); Carbon Dioxide 18.7 mmol/L (21.0-32.0); Chloride 102 mmol/L (98-108); Estimated Creatinine Clearance 62.59 ml/min (50-250); Glucose 159 mg/dL (70-99); Potassium 4.2 mmol/L (3.3-5.1)
--- NOTE | 2025-01-29 07:12 | NURSING ---
This nurse spoke with son asking if son could come in and sit with patient due to patients confusion that has lasted all night. Pts son said he will check in at work then he will be on his way to the hospital.
--- NOTE | 2025-01-29 08:46 | CASEMGMT ---
Social Work SW did call the [facility] again this morning, message left. ALANIS Mead
--- NOTE | 2025-01-29 10:00 | EKG12_ITS ---
Test Reason : am ekg Blood Pressure : */* mmHG Vent. Rate : 61 BPM Atrial Rate : 61 BPM P-R Int : 228 ms QRS Dur : 70 ms QT Int : 472 ms P-R-T Axes : 84 39 68 degrees QTcB Int : 475 ms Ectopic atrial rhythm Septal infarct , age undetermined T wave abnormality, consider anterior ischemia Abnormal ECG When compared with ECG of 27-Jan-2025 16:58, MANUAL COMPARISON REQUIRED DATA IS UNCONFIRMED Confirmed by NATASHA CHUA, DANK ([id number]), technical writer and editor SHELLI WISE ([id number]) on 02/01/2025 6:35:15 AM Referred By: Pradeep Frausto Confirmed By: DANK FRAUSTO MD
--- NOTE | 2025-01-29 11:03 | CASEMGMT ---
Addendum entered by Alexandria Murrieta 01/29/25 13:39: Social Work Vitaliy from the [facility] called earlier to check on pt's discharge. Vitaliy is part of the transfer team. AUBREY explained he was not discharged yet, but will send d/c instructions to Ramos, the AUBREY, once pt is d/c. Pt has now been discharged. AUBREY faxed the H&P and discharge instructions to the [facility], attention to Ramos. No further needs, pt home today. ALANIS Mead Original Note: Social Work Referral made to [facility]. AUBREY also spoke w/Ramos Munguia from the [facility]. He states that he can make referral for aide services, and send a referral to the transfer team, as pt does want home health through the [facility], pt and family is aware that there will be a delay in the [facility] getting services into the home. AUBREY explained to Ramos that pt does not really need assist w/ADLs but would benefit from medication management in particular. Ramos will make the referral to the transfer team for the home health care. Referral to [facility] in the interim. AUBREY will fax the discharge instructions and H&P to Ramos, and he will follow up. ALANIS Mead
--- NOTE | 2025-01-29 11:10 | CASEMGMT ---
Social Work- SW met with pt and pt son to discuss discharge planning. Pt Ox 1-2. Pt resistant to allowing services in the home initially. After lengthy discussions with pt and pt son, pt agreeable to [facility] referral and [facility] referral. Private duty list also provided. Pt son and daughter, as well as friends are reported by pt son to be available to assist pt at return home. Pt son recognizes safety concerns due to pt confusion; pt refusing SNF for memory care at this time. SW collaborated with therapy who reports no skillable needs. SW on floor updated. SW to follow. ERIK Verma
[2025-01-29] MEDS: Aspirin E.C. 81 MG Tablet PO (11:59)
[2025-01-29] MEDS: Glucerna Shake 120 ML LIQUID PO (11:59)
[2025-01-29] MEDS: TICAGRELOR 90 MG TABLET PO ×2 (11:59→21:04)
[2025-01-29] MEDS: Nicotine (PBKC) 21 MG Patch TD (12:00)
--- NOTE | 2025-01-29 13:23 | PCM.DC ---
Discharge Instructions DC O2, CPAP, BIPAP needs Home O2 Discharge instructions: No Dressing / Incision Discharge Activity: Return to Normal Activity Weight Bearing Status: Weight bearing as tolerated Dressing / Incision Call your doctor if you observe: Fever of 101 or Higher, Shortness of breath, Dizziness, Swelling in the ankles and Chest pain Follow Up Care Test Results: Test results from this visit will be discussed in further detail at your follow-up appointment, if applicable. Discharge Plan Admission Admit Date/Time: 01/27/25 17:19 Primary Reason for Your Visit: STEMI Attending Provider: Lisa Verdin Primary Care Provider: Bethany Cedeno Consulting Providers: Perico Lechuga Instructions Patient Instructions: Heart Attack Dc, Heart Attack Discharge Orders/Prescriptions Prescriptions: New atorvastatin 40 mg Tablet 40 mg PO QHS Qty: 30 2RF aspirin 81 mg Tablet,Delayed Release (Dr/Ec) 81 mg PO BREAKFAST Qty: 30 2RF metoprolol tartrate 25 mg Tablet 12.5 mg PO BID Qty: 30 2RF ticagrelor [Brilinta] 90 mg Tablet 90 mg PO BID Qty: 30 2RF Continued cholecalciferol (vitamin D3) 5,000 unit capsule 5,000 unit PO DAILY Centrum Silver Men 300-600-300 mcg tablet 1 tab PO DAILY citalopram [Celexa] 10 mg tablet 10 mg PO DAILY Qty: 90 0RF losartan 50 mg Tablet 50 mg PO DAILY pantoprazole 40 mg Tablet,Delayed Release (Dr/Ec) 40 mg PO BID insulin glargine [Lantus Solostar U-100 Insulin] 100 unit/mL (3 mL) insulin pen 30 unit subcut DAILY levothyroxine 125 mcg tablet 125 mcg PO DAILY Qty: 90 1RF Vitaae Citicoline 100 mg PO DAILY metformin 500 mg tablet 500 mg PO BID Diclofenac NA 1% gel topical Discontinued atorvastatin 80 mg Tablet 80 mg PO QHS meloxicam 15 mg tablet 15 mg PO QDAY Referrals / Follow Up: Derick Ortiz MD [Med Staff - Active Staff, Cardiology] - Within 2 Weeks Bethany Cedeno MD [Primary Care Provider, Internal Medicine - [facility]] - Within 1 Week Disposition Disposition (needs filled in before D/C Order can be placed): Home Health Service
--- NOTE | 2025-01-29 13:40 | CASEMGMT ---
Addendum entered by Alexandria Murrieta 01/29/25 13:54: Social Work SW notified family and pt cost of medications, they are aware and fine w/the cost, would like meds delivered to the room. AUBREY notified the retail pharmacy. ALANIS Mead Original Note: RN AIYANA NOTE: Pt to discharge home on Brilinta. Call to [facility] retail pharmacy. Cost is $27.50 for the Brilinta. Total cost of medications is $53.86. AUBREY Ibrahim, to notify son. Kevin BSN RN CM
--- NOTE | 2025-01-29 14:49 | PHA.DC_ITS ---
Pharmacy [facility] has performed discharge medication reconciliation and counseling for this patient. 1. ASPIRIN 81MG PO BREAKFAST 2. METOPROLOL TARTRATE 12.5MG PO BID 3. TICAGRELOR 90MG PO BID 4. LIPITOR DECREASED TO 40MG 5. STOP MOBIC The patient's discharge medication list was reviewed for discrepancies and discrepancies were resolved. The patient was counseled on the following discharge medications and changes in medications for homegoing were reviewed. The Reason for Use, instructions for use, and potential side effects were reviewed for all new medications. The patient's questions regarding all of their medications were answered. The patient was able to verbally demonstrate an understanding of their discharge medications. Medications at Discharge Home Medications cholecalciferol (vitamin D3) 125 mcg (5,000 unit) capsule 5,000 unit PO DAILY supplement 02/13/18 [id number] 300 mcg-K 60 mcg-lycop 600 mcg-lutein 300 mcg tablet (Centrum Silver Men) 1 tab PO DAILY supplement 02/13/18 losartan 50 mg tablet 50 mg PO DAILY pt unsure 09/12/22 pantoprazole 40 mg tablet,delayed release 40 mg PO BID gerd 09/12/22 insulin glargine 100 unit/mL (3 mL) subcutaneous pen (Lantus Solostar U-100 Insulin) 30 unit subcut DAILY blood sugar 09/10/23 citalopram 10 mg tablet (Celexa) 10 mg PO DAILY #90 tabs 11/21/23 levothyroxine 125 mcg tablet 125 mcg PO DAILY thyroid #90 tabs 08/06/24 Diclofenac NA 1% topical unsure 08/07/24 Vitaae Citicoline 100 mg PO DAILY head bumps 08/07/24 metformin 500 mg tablet 500 mg PO BID blood sugar 08/07/24 aspirin 81 mg tablet,delayed release 81 mg PO BREAKFAST #30 tabs 01/29/25 atorvastatin 40 mg tablet 40 mg PO QHS #30 tabs 01/29/25 metoprolol tartrate 25 mg tablet 12.5 mg (1/2 x 25 mg) PO BID #30 tabs 01/29/25 ticagrelor 90 mg tablet (Brilinta) 90 mg PO BID #30 tabs 01/29/25
--- NOTE | 2025-01-29 17:01 | PN_ITS ---
Subjective Subjective Patient seen and examined. He had no active complaints and felt well. He review of systems is otherwise negative. He was noted to be a bit more confused today, and did not know where he was. He thought he was in his office on [facility] in [place]. His son was by his bedside and his son did admit to his father having had some progressively worsening forgetfulness. Review of systems otherwise negative. Plans to discharge patient today canceled as patient became much more confused later in the day. He has remained hemodynamically stable. Objective Data Objective Data Vital Signs: Vital Signs Temp Pulse Resp BP Pulse Ox O2 Del Method 97.8 F 63 18 114/57 L 93 Room Air 01/29/25 15:23 01/29/25 15:23 01/29/25 15:23 01/29/25 15:23 01/29/25 15:23 01/29/25 15:23 Oxygen Delivery Method Room Air Weight: 147 lb 4.301 oz Body Mass Index (BMI) 22.7 Intake & Output: Intake and Output for Last 24 Hours 01/27/25 01/28/25 01/29/25 23:59 23:59 23:59 Intake Total 1000 / 1000 Output Total 550 / 550 775 / 775 Balance -550 / -550 225 / 225 Lab / Micro Data 01/29/25 03:57 01/29/25 03:57 Labs: Laboratory Results - last 24 hr 01/28/25 16:43: POC Glucose 142 H 01/28/25 22:48: POC Glucose 138 H 01/29/25 03:57: WBC 13.2 H, RBC 4.84, Hgb 15.3, Hct 43.0, MCV 88.8, MCH 31.6, MCHC 35.6, RDW Std Deviation 43.5, RDW Coeff of Natalia 13.2, Plt Count 233, MPV 10.7, Immature Gran % (Auto) 0.500, Neut % (Auto) 73.2 H, Lymph % (Auto) 16.4 L, [place] % (Auto) 8.9, Eos % (Auto) 0.6, Baso % (Auto) 0.4, Absolute Neuts (auto) 9.7 H, Absolute Lymphs (auto) 2.16, Nucleated RBC % 0, Sodium 134, Potassium 4.2, Chloride 102, Carbon Dioxide 18.7 L, Anion Gap 14, BUN 20 H, Creatinine 0.88, Estim Creat Clear Calc 62.59, Est GFR (MDRD) Non-Af 87, BUN/Creatinine Ratio 22.6 H, Glucose 159 H, Calcium 8.7, TSH 54.700 H 01/29/25 06:11: POC Glucose 232 H 01/29/25 11:57: POC Glucose 205 H Rhythm Strip Rhythm Strip: Sinus Rhythm Rate: 71 Physical Exam Const alert, no apparent distress and average body habitus Constitutional Narrative: Patient alert though he does still have episodic confusion. General Appearance: cooperative and comfortable HEENT normocephalic, head/scalp atraumatic, hearing grossly normal bilaterally, nasal mucous membranes and turbinates normal, moist oral mucous membranes and oropharynx normal Eyes PERRL, EOMs intact bilaterally and conjunctivae normal Neck full ROM and supple Lymph Lymphatic: no lymphedema noted Chest inspection of chest normal Resp normal respiratory effort, normal air movement, no use of accessory muscles and clear to auscultation bilaterally Cardio regular rate, regular rhythm, S1 normal heart sound, S2 normal heart sound, no murmurs and peripheral pulses 2+ throughout GI normal to inspection, nondistended, normoactive bowel sounds, soft to palpation, non-tender and non-distended Back/Spine normal ROM Extremity normal to inspection, full ROM, normal capillary refill, no clubbing, cyanosis or edema, no calf tenderness and no pedal edema General Extremity: no tenderness to palpation of joints or extremities Skin no rashes or lesions noted General Skin Exam: no breakdown Neuro CN's II-XII intact bilaterally and no focal motor deficits Motor Exam: general weakness Psych cooperative and affect normal Psych Narrative: Patient has episodic confusion which has worsened today Mood & Affect: flat affect Assessment & Plan Assessment/Plan (1) ST elevation (STEMI) myocardial infarction involving left anterior descending coronary artery: (2) History of coronary artery stent placement: PLAN: Plan #ST elevation CT s/p cardiac cath * Patient admitted with complaint of chest pain and found to be in ST elevation CT yesterday. He had emergent cardiac cath which showed a heavily calcified left anterior descending system and he had a stent inserted. * On aspirin and high intensity statin as well as Brilinta. * Cardiology on board. 2D echo done today showed mild concentric left ventricular hypertrophy with anterior apical akinesis and EF of 40% with stage I diastolic dysfunction and mild to moderate aortic valve regurgitation. * Also on metoprolol 12.5 mg twice daily. * #Hyperlipidemia: On statin #Hypertension: On on metoprolol 12.5 mg twice daily. #Type 2 diabetes mellitus: On Lantus 30 units daily. Insulin sliding scale. Accu-Cheks ACHS. Also on metformin but this was held because he received contrast with a cath. A1c 7.4.. #Depression: On citalopram #Probable dementia * Patient thought he was on [employer] in [place] this morning, though he subsequently realised he was in the hospital. He knew his name and the current president and his date of . * Patient has had decline in cognitive ability and son says this has been going on for about a year. * Initially this morning we had come up with a plan together with case management and patient's son to discharge patient home with home health. His daughter was also coming in today and together with his son and they were going to provide care at home. * However patient declined and subsequently became much more confused. Plans for discharge therefore canceled. I spoke to patient's son again extensively today. Patient's son is on board with placement but patient is adamant that he is not going to go anywhere. He is also not willing to let anybody into his house to stay with him full-time. Case management informed and will work with patient's son to come up with a discharge plan , possibly placement therapy suitable to patient and family. * Placed on Seroquel 25 mg twice daily to help with agitation and confusion. #Hypothyroidism: * On Synthroid. TSH is 91. It is not clear that patient has been compliant with his medication. * Repeat TSH is 54.7 from 91. It is questionable whether patient has been taking his medications. Will increase patient's Synthroid dose from 125 mcg daily to 175 mcg daily.. Free T4 and T3 pending. * synthroid dose increased to 175mcg daily. * However I will recheck the TSH tomorrow morning to make sure these values are accurate before making any changes in his medication doses. DVT prophylaxis: Lovenox Charges/Coding Visit Charges Inpatient E&M: 92714 Subs Hosp L2
[2025-01-29 17:29] LABS: Free T3 1.3 pg/mL (2.18-3.98)
[2025-01-30 03:15] VITALS: BP 98/60; PULSE 64; RESP 16; TEMP 36.7; O2SAT 96
--- NOTE | 2025-01-30 05:18 | EKG12_ITS ---
Test Reason : CP Blood Pressure : */* mmHG Vent. Rate : 66 BPM Atrial Rate : 66 BPM P-R Int : 220 ms QRS Dur : 100 ms QT Int : 406 ms P-R-T Axes : 106 -57 68 degrees QTcB Int : 425 ms Critical Test Result: STEMI Sinus rhythm with 1st degree A-V block Left anterior fascicular block Anteroseptal infarct , possibly acute ACUTE [place] / STEMI Abnormal ECG When compared with ECG of 22-Feb-2020 21:49, Significant changes have occurred Confirmed by JOSSELYN CHUA, TARI ([id number]), supervising film or videotape editor CHARLES MATUTE ([id number]) on 02/01/2025 8:51:05 AM Referred By: Pradeep Frausto Confirmed By: TARI ARCOS MD
[2025-01-30 05:19] VITALS: BMI 23.2
[2025-01-30 05:40] LABS: Hematocrit 42.4 % (40-54); Hemoglobin 14.9 g/dL (13.0-16.5); Immature Granulocytes Count 0.030 X10^3/uL (0.0-0.0); Mean Corp Hgb Conc 35.1 g/dL (32-36); Mean Corpuscular Volume 90.4 fL (80-94); Mean Platelet Vol. 10.4 fl (6.2-12.0); NRBC Flagged by Analyzer 0 % (0-5); Platelet Count 204 K/mm3 (150-450); RBC Distribution Width CV 13.2 % (11.6-14.6); RBC Distribution Width SD 43.6 fl (35.1-43.9); Red Blood Count 4.69 M/mm3 (4.6-6.2); White Blood Count 9.3 K/mm3 (4.4-11.0)
[2025-01-30 06:05] LABS: Anion Gap 12 (5-15); BUN 23 mg/dL (4-19); BUN/Creat Ratio 26.4 RATIO (10-20); Calcium,Total 8.6 mg/dL (7.6-11.0); Carbon Dioxide 19.7 mmol/L (21.0-32.0); Chloride 105 mmol/L (98-108); Estimated Creatinine Clearance 63.31 ml/min (50-250); Glucose 137 mg/dL (70-99); Potassium 3.9 mmol/L (3.3-5.1)
[2025-01-30 09:17] VITALS: BP 130/83; PULSE 80; RESP 17; TEMP 36.8; O2SAT 99
[2025-01-30] MEDS: Glucerna Shake 120 ML LIQUID PO ×2 (09:22→11:49)
[2025-01-30 09:23] VITALS: PULSE 80
[2025-01-30] MEDS: Aspirin E.C. 81 MG Tablet PO (09:23)
[2025-01-30] MEDS: TICAGRELOR 90 MG TABLET PO (09:23)
--- NOTE | 2025-01-30 09:24 | CASEMGMT ---
Addendum entered by Alexandria Murrieta 01/30/25 13:02: Social Work SW spoke w/pt's son also, and he did take care of the guns at the pt's home. ALANIS Mead Addendum entered by Alexandria Murrieta 01/30/25 12:57: Social Work SW checked back w/the pt's son, he is agreeable for pt to return home today. SW did let him know also a referral was made to the [facility] for home health. Son Mekhi did ask about driving, SW asked physician to address this on the d/c instructions. She is aware family agreeable for pt to return home today. ALANIS Mead Original Note: Social Work SW spoke w/physician and son Mekhi in the hallway, and then just the son Mekhi. Both physician and son reporting pt is doing better today. Son does anticipate being able to take pt back home later today, knows pt would never agree to going somewhere other than home. Son states between family and friends there are several people who can check in on pt throughout the day. Son states they will have more of a heavy presence initially. They also will consider hiring privately aide services vs having additional family and friends check on pt. SW did let son know the referral to [facility] was made, and re-educated son on [facility]. Son also spoke about pt driving, SW suggested they follow up w/the PCP in regard to this. Son states pt has an appt on Saturday at 9am. SW also spoke w/son about putting in cameras in the home, some families have found this helpful, son may consider this. SW did also speak w/Mekhi about getting the guns out of the home, or at least the ammunition. Son states he will do this. SW will contineu to follow. Son wants to see how pt does the next couple of hours, and if he is still doing better will plan to take pt home. AUBREY updated physician. ALAINS Mead
--- NOTE | 2025-01-30 10:00 | EKG12_ITS ---
Test Reason : Chest Pain Blood Pressure : */* mmHG Vent. Rate : 63 BPM Atrial Rate : 63 BPM P-R Int : 220 ms QRS Dur : 70 ms QT Int : 456 ms P-R-T Axes : 173 60 82 degrees QTcB Int : 466 ms Unusual P axis, possible ectopic atrial rhythm Septal infarct , age undetermined T wave abnormality, consider anterior ischemia Abnormal ECG When compared with ECG of 27-Jan-2025 22:47, MANUAL COMPARISON REQUIRED DATA IS UNCONFIRMED Confirmed by NATASHA CHUA, DANK ([id number]), editor sound SHELLI WISE ([id number]) on 02/01/2025 6:35:41 AM Referred By: Pradeep Frausto Confirmed By: DANK FRAUSTO MD
--- NOTE | 2025-01-30 13:43 | PCM.DC ---
Discharge Instructions DC O2, CPAP, BIPAP needs Home O2 Discharge instructions: No Dressing / Incision Discharge Activity: Return to Normal Activity Weight Bearing Status: Weight bearing as tolerated Dressing / Incision Call your doctor if you observe: Fever of 101 or Higher, Shortness of breath, Dizziness, Swelling in the ankles and Chest pain Follow Up Care Test Results: Test results from this visit will be discussed in further detail at your follow-up appointment, if applicable. Discharge Plan Admission Admit Date/Time: 01/27/25 17:19 Primary Reason for Your Visit: STEMI Attending Provider: Lisa Verdin Primary Care Provider: Bethany Cedeno Consulting Providers: Perico Lechuga Instructions Patient Instructions: Heart Attack Dc, Heart Attack Additional Instructions / Restrictions: Patient counseled not to drive due to concerns about dementia and decline in cognitive ability. He is to see his PCP and neurologist for clearance about if and when he can resume driving. Discharge Orders/Prescriptions Prescriptions: New atorvastatin 40 mg Tablet 40 mg PO QHS Qty: 30 2RF aspirin 81 mg Tablet,Delayed Release (Dr/Ec) 81 mg PO BREAKFAST Qty: 30 2RF metoprolol tartrate 25 mg Tablet 12.5 mg PO BID Qty: 30 2RF ticagrelor [Brilinta] 90 mg Tablet 90 mg PO BID Qty: 30 2RF Continued cholecalciferol (vitamin D3) 5,000 unit capsule 5,000 unit PO DAILY Centrum Silver Men 300-600-300 mcg tablet 1 tab PO DAILY citalopram [Celexa] 10 mg tablet 10 mg PO DAILY Qty: 90 0RF losartan 50 mg Tablet 50 mg PO DAILY pantoprazole 40 mg Tablet,Delayed Release (Dr/Ec) 40 mg PO BID insulin glargine [Lantus Solostar U-100 Insulin] 100 unit/mL (3 mL) insulin pen 30 unit subcut DAILY levothyroxine 125 mcg tablet 125 mcg PO DAILY Qty: 90 1RF Vitaae Citicoline 100 mg PO DAILY metformin 500 mg tablet 500 mg PO BID Diclofenac NA 1% gel topical Discontinued atorvastatin 80 mg Tablet 80 mg PO QHS meloxicam 15 mg tablet 15 mg PO QDAY Referrals / Follow Up: Derick Ortiz MD [Med Staff - Active Staff, Cardiology] - Within 2 Weeks Bethany Cedeno MD [Primary Care Provider, Internal Medicine - [facility]] - Within 1 Week Disposition Disposition (needs filled in before D/C Order can be placed): Home Health Service
--- NOTE | 2025-01-30 13:44 | DS.PCM_ITS ---
Providers Date of Admission: 01/27/25 Date of Discharge: 01/30/25 Primary Care Physician: Dr. Bethany Cedeno MD Reason For Visit: CHEST PAIN Diagnosis Discharge Diagnosis (1) ST elevation (STEMI) myocardial infarction involving left anterior descending coronary artery: Status: Acute Code(s): I21.02 - ST elevation (STEMI) myocardial infarction involving left anterior descending coronary artery (2) History of coronary artery stent placement: Status: Acute Code(s): Z95.5 - Presence of coronary angioplasty implant and graft Plan #ST elevation DE s/p cardiac cath * Patient admitted with complaint of chest pain and found to be in ST elevation DE yesterday. He had emergent cardiac cath which showed a heavily calcified left anterior descending system and he had a stent inserted. * On aspirin and high intensity statin as well as Brilinta. * Cardiology on board. 2D echo done today showed mild concentric left ventricular hypertrophy with anterior apical akinesis and EF of 40% with stage I diastolic dysfunction and mild to moderate aortic valve regurgitation. * Also on metoprolol 12.5 mg twice daily. * #Hyperlipidemia: On statin #Hypertension: On on metoprolol 12.5 mg twice daily. #Type 2 diabetes mellitus: On Lantus 30 units daily. Insulin sliding scale. Accu-Cheks ACHS. Also on metformin but this was held because he received contrast with a cath. A1c 7.4.. #Depression: On citalopram #Probable dementia * Patient thought he was on [facility] in [place] this morning, though he subsequently realised he was in the hospital. He knew his name and the current president and his date of . * Patient has had decline in cognitive ability and son says this has been going on for about a year. * Initially this morning we had come up with a plan together with case management and patient's son to discharge patient home with home health. His daughter was also coming in today and together with his son and they were going to provide care at home. * However patient declined and subsequently became much more confused. Plans for discharge therefore canceled. I spoke to patient's son again extensively today. Patient's son is on board with placement but patient is adamant that he is not going to go anywhere. He is also not willing to let anybody into his house to stay with him full-time. Case management informed and will work with patient's son to come up with a discharge plan , possibly placement therapy suitable to patient and family. * Placed on Seroquel 25 mg twice daily to help with agitation and confusion. #Hypothyroidism: * On Synthroid. TSH is 91. It is not clear that patient has been compliant with his medication. * Repeat TSH is 54.7 from 91. It is questionable whether patient has been taking his medications. Will increase patient's Synthroid dose from 125 mcg daily to 175 mcg daily.. Free T4 and T3 pending. * synthroid dose increased to 175mcg daily. * However I will recheck the TSH tomorrow morning to make sure these values are accurate before making any changes in his medication doses. DVT prophylaxis: Lovenox Medications at Discharge Home Medications cholecalciferol (vitamin D3) 125 mcg (5,000 unit) capsule 5,000 unit PO DAILY supplement 02/13/18 [id number] 300 mcg-K 60 mcg-lycop 600 mcg-lutein 300 mcg tablet (Centrum Silver Men) 1 tab PO DAILY supplement 02/13/18 losartan 50 mg tablet 50 mg PO DAILY pt unsure 09/12/22 pantoprazole 40 mg tablet,delayed release 40 mg PO BID gerd 09/12/22 insulin glargine 100 unit/mL (3 mL) subcutaneous pen (Lantus Solostar U-100 Insulin) 30 unit subcut DAILY blood sugar 09/10/23 citalopram 10 mg tablet (Celexa) 10 mg PO DAILY #90 tabs 11/21/23 Diclofenac NA 1% topical unsure 08/07/24 Vitaae Citicoline 100 mg PO DAILY head bumps 08/07/24 metformin 500 mg tablet 500 mg PO BID blood sugar 08/07/24 aspirin 81 mg tablet,delayed release 81 mg PO BREAKFAST #30 tabs 01/29/25 atorvastatin 40 mg tablet 40 mg PO QHS #30 tabs 01/29/25 metoprolol tartrate 25 mg tablet 12.5 mg (1/2 x 25 mg) PO BID #30 tabs 01/29/25 ticagrelor 90 mg tablet (Brilinta) 90 mg PO BID #30 tabs 01/29/25 levothyroxine 175 mcg capsule 175 mcg PO DAILY #30 caps 01/30/25 Hospital Course Operations None Procedures 2-D Echocardiogram and Cardiac catheterization Summary of Care Provided Minutes Spent on Discharge: 45 Hospital Course: Patient is an 79-year-old male with past medical history as outlined was admitted through the ED on 01/27/2025 with complaint of chest pain. On admission in the ER he was found to have an anterior ST elevation DE. EKG. He was therefore taken emergently to the [facility]. Cardiac cath revealed severe multivessel disease with the LAD being the culprit. LAD was heavily calcified and was treated with PTCA and lithotripsy as well as drug-eluting stent x 1 insertion. He was admitted in the ICU afterwards. Patient lived at home alone and having concerns about some cognitive decline. Was not clear whether patient had been taking all his meds or otherwise. He had 2D echo which showed mild concentric LV hypertrophy, mid to distal anterior septal akinesis and EF of 40% with stage I diastolic dysfunction. He had a mildly calcified aortic valve. There was also mild to moderate aortic valve regurgitation. Patient was placed on aspirin and Brilinta as well as high intensity statin. He was placed on p.o. metoprolol. He was continued on Lantus. There was concern about dementia as patient had had declining cognition. His son said this has been going on for about a year. This hospitalist had an extensive discussion with patient and his son. Patient's admitted to having some cognitive decline but said it was associated with aging. He said he lived alone but had someone who came in to help him in the house. He was not willing to have anybody stay in his house full-time. His son also said he could help with his care but he would not be able to be present 24 hours. Patient was not willing to entertain placement at all. He did get quite confused during the hospital stay and had to be placed on Seroquel. However subsequently his mentation improved and on day of discharge patient was alert and oriented x 3 and said he felt much like himself and wanted to go home. He admitted to sometimes not taking some of his medications at home but was not sure exactly which ones he was not taking. On the afternoon of the day of discharge patient's mentation had improved and he still insisted on going home. His son was agreeable to him going home and after extensive discussion with case management, they agreed to take patient home. He was discharged on aspirin and Brilinta as well as high intensity statin. Of note his TSH was 91 and repeat was 54.7. It was not clear whether he had been taking his Synthroid at home or otherwise. His Synthroid dose was increased to 175 mcg daily. He was discharged home on 01/30/2025 and is to follow-up with his primary care doctor within 1 to 2 weeks. He is also to follow-up with cardiology on outpatient basis within 2 weeks. Of note, patient was counseled not to drive in light of his impaired cognition adn concern for dementia, until he was cleared to drive by his PCP or a neurologist. Patient was seen and examined prior to discharge. He had no active complaints and had an uneventful night. HE was alert and oriented x 3. Review of systems otherwise negative. Labs and vitals reviewed. Home medication reviewed and reconciled. Physical Exam Const alert, no apparent distress and average body habitus Constitutional Narrative: Patient alert though he does still have episodic confusion. General Appearance: cooperative and comfortable HEENT normocephalic, head/scalp atraumatic, hearing grossly normal bilaterally, nasal mucous membranes and turbinates normal, moist oral mucous membranes and oropharynx normal Mouth: oral and palatal mucosa normal Eyes PERRL, EOMs intact bilaterally and conjunctivae normal Neck full ROM and supple Lymph Lymphatic: no lymphedema noted Chest inspection of chest normal Resp normal respiratory effort, normal air movement, no use of accessory muscles and clear to auscultation bilaterally Cardio regular rate, regular rhythm, S1 normal heart sound, S2 normal heart sound, no murmurs and peripheral pulses 2+ throughout GI normal to inspection, nondistended, normoactive bowel sounds, soft to palpation, non-tender and non-distended Back/Spine normal ROM Extremity normal to inspection, full ROM, normal capillary refill, no clubbing, cyanosis or edema, no calf tenderness and no pedal edema General Extremity: no tenderness to palpation of joints or extremities Skin no rashes or lesions noted General Skin Exam: no breakdown Neuro oriented x3, CN's II-XII intact bilaterally, moves all extremities and no focal motor deficits Sensorium / Orientation: awake and alert Motor Exam: general weakness Psych cooperative and affect normal Psych Narrative: Patient has episodic confusion Mood & Affect: flat affect Weight / BMI Weight Weight: 150 lb 9.211 oz Body Mass Index (BMI) 23.2 ABG / Lab / Microbiology Data 01/30/25 05:26 01/30/25 05:26 Laboratory: Laboratory Results - last 24 hr 01/29/25 03:57: TSH 54.700 H, Free T4 0.80, Free T3 pg/dL 1.3 L 01/29/25 17:15: POC Glucose 183 H 01/29/25 20:57: POC Glucose 136 H 01/30/25 05:26: WBC 9.3, RBC 4.69, Hgb 14.9, Hct 42.4, MCV 90.4, MCH 31.8, MCHC 35.1, RDW Std Deviation 43.6, RDW Coeff of Natalia 13.2, Plt Count 204, MPV 10.4, Immature Gran % (Auto) 0.300, Neut % (Auto) 63.9, Lymph % (Auto) 24.4, [place] % (Auto) 9.7, Eos % (Auto) 1.4, Baso % (Auto) 0.3, Absolute Neuts (auto) 5.9, Absolute Lymphs (auto) 2.26, Nucleated RBC % 0, Sodium 137, Potassium 3.9, Chloride 105, Carbon Dioxide 19.7 L, Anion Gap 12, BUN 23 H, Creatinine 0.87, Estim Creat Clear Calc 63.31, Est GFR (MDRD) Non-Af 87, BUN/Creatinine Ratio 26.4 H, Glucose 137 H, Calcium 8.6 01/30/25 06:32: POC Glucose 143 H D/C Instructions Discharge Activity: Return to Normal Activity Weight Bearing Status: Weight bearing as tolerated Call your doctor if you observe: Fever of 101 or Higher, Shortness of breath, Dizziness, Swelling in the ankles and Chest pain DC O2, CPAP, BIPAP Needs Home O2 Discharge instructions: No DC home with Oxygen: No Meaningful Use Info Meaningful Use Meaningful Use Diagnoses (Choose all that apply): AMI AMI/Post PCI/Angioplasty Aspirin given w/in 24hrs of arrival?: Yes ASA at discharge?: Yes Statins at discharge?: Yes Serjio/ARB at discharge?: No Reason Serjio/ARB not ordered:: Not indicated Beta Luis at discharge?: Yes Done w/ Acute DE measure.: Yes Documented LVEF (%): 45 Discharge Plan Admission Admit Date/Time: 01/27/25 17:19 Primary Reason for Your Visit: STEMI Attending Provider: Lisa Verdin Primary Care Provider: Bethany Cedeno Consulting Providers: Perico Lechuga Instructions Patient Instructions: Heart Attack Dc, Heart Attack Additional Instructions / Restrictions: Patient counseled not to drive due to concerns about dementia and decline in cognitive ability. He is to see his PCP and neurologist for clearance about if and when he can resume driving. Discharge Orders/Prescriptions Prescriptions: New atorvastatin 40 mg Tablet 40 mg PO QHS Qty: 30 2RF aspirin 81 mg Tablet,Delayed Release (Dr/Ec) 81 mg PO BREAKFAST Qty: 30 2RF metoprolol tartrate 25 mg Tablet 12.5 mg PO BID Qty: 30 2RF ticagrelor [Brilinta] 90 mg Tablet 90 mg PO BID Qty: 30 2RF levothyroxine 175 mcg capsule 175 mcg PO DAILY Qty: 30 2RF Rx Instructions: take first thing in the morning at 6am on an empty stomach with a glass of water Continued cholecalciferol (vitamin D3) 5,000 unit capsule 5,000 unit PO DAILY Centrum Silver Men 300-600-300 mcg tablet 1 tab PO DAILY citalopram [Celexa] 10 mg tablet 10 mg PO DAILY Qty: 90 0RF losartan 50 mg Tablet 50 mg PO DAILY pantoprazole 40 mg Tablet,Delayed Release (Dr/Ec) 40 mg PO BID insulin glargine [Lantus Solostar U-100 Insulin] 100 unit/mL (3 mL) insulin pen 30 unit subcut DAILY Vitaae Citicoline 100 mg PO DAILY metformin 500 mg tablet 500 mg PO BID Diclofenac NA 1% gel topical Discontinued atorvastatin 80 mg Tablet 80 mg PO QHS levothyroxine 125 mcg tablet 125 mcg PO DAILY Qty: 90 1RF meloxicam 15 mg tablet 15 mg PO QDAY Referrals / Follow Up: Derick Ortiz MD [Med Staff - Active Staff, Cardiology] - Within 2 Weeks Bethany Cedeno MD [Primary Care Provider, Internal Medicine - [facility]] - Within 1 Week Disposition Disposition (needs filled in before D/C Order can be placed): Home Health Service Charges/Coding Visit Charges Inpatient E&M: 93019 Disch Hosp >30min
[2025-01-30 14:01] VITALS: BP 103/65; PULSE 71; RESP 17; TEMP 36.8; O2SAT 97
--- NOTE | 2025-02-08 15:00 | CL.I_ITS ---
Patient Name: MARIA DEL CARMEN AUGUSTIN Study Date: 01/27/2025 Performing: Debora Frausto MD Ht: 68 inches 172.72 cm : 1945 Wt: 140.2 lbs 63.5 kg Age: 79 Gender: male BSA: 1.76 PROCEDURE(S) PERFORMED DC02-([id number])LHC/COR IC16-([id number])AMI, EDMAR OR PTCA, ARTERY/GRAFT, SINGLE VESSEL IC11A-([id number])CORONARY INTRAVASCULAR LITHOTRIPSY CLINICAL PROFILE AND CO-MORBIDITIES Heart Failure: None CAD Presentations: STEMI. Symptom onset Date/Time: 01/27/25 Time Not Available CONCLUSIONS Severe CAD as decribed. Successful intravascular lithotripsy and EDMAR to mid and prox RCA RECOMMENDATIONS DESCRIPTION OF PROCEDURE The patient arrived to the procedure lab. The risks and benefits of the procedure as well as a full description of our services here and lack of surgical backup were fully explained to the patient and/or their significant other prior to the catheterization. The Timeout was completed, verifying the correct patient and procedure. The patient's procedural site was prepped and draped in the usual fashion. Local anesthetic was given subcutaneously to right radial region with Lidocaine 2%. Using a modified Seldinger technique, arterial access was obtained via the right radial artery, a 6Fr sheath was inserted.. Left Coronary Artery selective angiography was performed in multiple views using a 6 Fr. XB 3.0 catheter. Right Coronary Artery selective angiography was then performed in multiple views using a 5 Fr. JR 4 catheter XB 3.0 Guide catheter was inserted and engaged into the LCA. BMW Guide wire was advanced to the LAD. 2.25 x 12 Emerge Balloon catheter was inserted. PTCA balloon inflated at 10 atms for 15 secs. PTCA balloon inflated at 10 atms for 10 secs. PTCA balloon inflated at 10 atms for 16 secs. PTCA balloon inflated at 12 atms for 11 secs. Angiogram performed post balloon dilatation. PTCA balloon inflated at 10 atms for 7 secs. Balloon catheter was reinserted PTCA balloon inflated at 10 atms for 10 secs. PTCA balloon inflated at 12 atms for 10 secs. PTCA balloon inflated at 12 atms for 12 secs. 2.25 x 20 NC Emerge Balloon catheter was inserted. Balloon catheter was advanced across lesion in the LAD, mid. PTCA balloon inflated at 16 atms for 15 secs. PTCA balloon inflated at 18 atms for 25 secs. PTCA balloon inflated at 20 atms for 30 secs. PTCA balloon inflated at 20 atms for 13 secs. PTCA balloon inflated at 20 atms for 12 secs. PTCA balloon inflated at 20 atms for 58 secs. PTCA balloon inflated at 20 atms for 30 secs. 3 x 12 NC Emrge Balloon catheter was inserted. Balloon catheter was advanced across lesion in the LAD, proximal. PTCA balloon inflated at 16 atms for 20 secs. 2.25 x 20 NC Emerge Balloon catheter was advanced across lesion in the LAD, mid. PTCA balloon inflated at 18 atms for 15 secs. PTCA balloon inflated at 20 atms for 17 secs. PTCA balloon inflated at 20 atms for 118 secs. PTCA balloon inflated at 20 atms for 15 secs. PTCA balloon inflated at 20 atms for 30 secs. PTCA balloon inflated at 20 atms for 12 secs. PTCA balloon inflated at 20 atms for 26 secs. PTCA balloon inflated at 22 atms for 15 secs. 2.25 x 8 Mishel Drug Eluting stent was inserted. Drug Eluting stent was advanced across the lesion in the LAD, mid. 3 x 18 [place] Drug Eluting stent was inserted. Angiogram performed post stent deployment. 3.5 x 12 NC Emerge Balloon catheter was inserted post stent. The arterial sheath was pulled and a TR Band was applied for hemostasis 13cc air CORONARY ANGIOGRAPHY DOMINANCE: Right Dominant LEFT MAIN: Mild luminal irregularities LEFT ANTERIOR DESCENDING ARTERY: PROX LAD: 90 % Stenosis MID LAD: 90 % Stenosis DISTAL LAD: Severe diffuse disease CIRCUMFLEX ARTERY: Mild diffuse disease OM 1: Mid - 60-70 % Stenosis. A small branch of the OM1 is occluded and fills via collaterals RIGHT CORONARY ARTERY: 70% stenosis in the pRCA. 60% mRCA INTERVENTION INFORMATION LESION SITE: LAD (Mid) Lesion Complexity: High/C, chronic total occlusion: No, lesion at bifurcation: Yes, thrombus present: No, lesion length: 12 mm, culprit lesion: Yes, Previously treated lesion: No Pre Stenosis: 90 % Pre intervention SUMMER flow: 3 PROCEDURE: Drug Eluting Stent with pre and post dilatation, Coronary Intravascular Lithotripsy - IVL Post Stenosis: 0 % Post intervention SUMMER flow: 3 Lesion Devices: [place] .014 190cm BMW [place] Straight Cordis 6 Fr XB3.0 100cm Guide Catheter Phong Sci EMERGE MR 2.25x12 BALLOON Phong Sci NC EMERGE MR 2.25x20 BALLOON [employer] Shockwave IVL 2.5x12 Phong Sci NC EMERGE MR 2.25x20 BALLOON Medtronic 2.25 x 08 MISHEL FRONTIER EDMAR LESION SITE: LAD (Proximal) Lesion Complexity: High/C, chronic total occlusion: No, lesion at bifurcation: No, thrombus present: No, lesion length: 12 mm, culprit lesion: Yes Pre Stenosis: 90 % Pre intervention SUMMER flow: 3 PROCEDURE: Drug Eluting Stent with pre and post dilatation Post Stenosis: 0 % Post intervention SUMMER flow: 3 Lesion Devices: Phong Sci NC EMERGE MR 3.00x12 BALLOON Medtronic 3.0 x 18 MISHEL FRONTIER EDMAR Phong Sci NC EMERGE MR 3.50x12 BALLOON COMPLICATIONS No Complications PROCEDURE MEDICATIONS Fentanyl 25 mcg IV Fentanyl 25 mcg IV Oxygen: 2 L/min via nasal cannula Brilinta 180 mg PO @ 01/27/2025 15:10:19 Heparin given IA 01/27/2025 15:16:22 Verapamil 2.5mg, Ntg 100mcgs, 3000 units of Heparin given IA 01/27/2025 15:16:22 SUMMARY OF HEMODYNAMIC DATA Time AIR REST ECG 15:11:33 AO 91/57 (75) SA 15:19:54 AO 89/47 (64) 15:21:21 AO 107/49 (73) 15:48:38 Signed By Debora Frausto MD On 02/08/2025 15:00:04 Debora Frausto MD
--- NOTE | 2025-02-22 14:21 | CCN.REFER ---
PATIENT DECLINES CCN SERVICES.
== END 2025-01-30 14:35 | disposition home health service (06) | DRG 324 ==
LOC: ED 15:08 → ICU 15:11 → PCU 01-28 17:11
PROVIDERS: Admitting Provider Hospitalist; Emergency Provider Surgery; PCP Internal Medicine; Referring Provider Specialist; Visit Provider Student in an Organized Health Care Education/Training Program
DX: I21.02 ST elevation (STEMI) myocardial infarction involving left anterior descending coronary artery (principal); E03.9 Hypothyroidism, unspecified; E11.9 Type 2 diabetes mellitus without complications; F03.90 Unspecified dementia, unspecified severity, without behavioral disturbance, psychotic disturbance, mood disturbance, and anxiety; I10 Essential (primary) hypertension; I35.1 Nonrheumatic aortic (valve) insufficiency; F32.A Depression, unspecified; I70.0 Atherosclerosis of aorta; R63.4 Abnormal weight loss; Z79.4 Long term (current) use of insulin; K21.9 Gastro-esophageal reflux disease without esophagitis; G47.33 Obstructive sleep apnea (adult) (pediatric); I25.10 Atherosclerotic heart disease of native coronary artery without angina pectoris; E78.5 Hyperlipidemia, unspecified; I49.3 Ventricular premature depolarization; Z79.1 Long term (current) use of non-steroidal anti-inflammatories (NSAID); Z79.84 Long term (current) use of oral hypoglycemic drugs; Z79.02 Long term (current) use of antithrombotics/antiplatelets; Z95.5 Presence of coronary angioplasty implant and graft; Z79.890 Hormone replacement therapy; Z68.22 Body mass index [BMI] 22.0-22.9, adult; Z85.850 Personal history of malignant neoplasm of thyroid
CPT/HCPCS: 36415; 71045; 80048; 80053; 82962; 83036; 83880; 84439; 84443; 84481; 84484; 85025; 85027; 85347; 85610; 85730; 92523; 92941; 92972; 93005; 93306; 93454; 94668; 94762; 97161; 97166; 97802; 99152; 99153; 99284; C1761; C1769; C1887; C1894; Q9957; Q9967; A4216; C1725; C1874; C8929; C9606; J1327

== ENCOUNTER → 2025-03-29 | Outpatient (CLI) | payer MEDICARE, OTHER, SELFPAY ==
--- NOTE | 2025-03-29 13:57 | CDU_ITS ---
Reason For Study Reason For Study: Bruit Rt. Velocities/BP Lt. Velocities/BP Prox CCA 70/8 cm/sec. Prox CCA 81/7 cm/sec. Mid CCA 62/10 cm/sec. Mid CCA 63/8 cm/sec. Dist CCA 54/7 cm/sec. Dist CCA 45/6 cm/sec. Prox ICA 40/8 cm/sec. Prox ICA 43/10 cm/sec. Mid ICA 71/15 cm/sec. Mid ICA 54/13 cm/sec. Dist ICA 74/16 cm/sec. Dist ICA 103/25 cm/sec. Rt. ICA/CCA = 1.2. Lt. ICA/CCA = 1.7. Prox ECA 72/0 cm/sec. Prox ECA 74/3 cm/sec. Rt. Vert. 52/9 cm/sec. Lt. Vert. 43/4 cm/sec. Right Extracranial There is heterogeneous, irregular atherosclerotic plaque noted in the right common carotid artery. There is heterogeneous, irregular atherosclerotic plaque noted in the right internal carotid artery. There is intimal thickening but no significant atherosclerotic plaque noted in the right external carotid artery. Antegrade flow is noted in the right vertebral artery. Left Extracranial There is heterogeneous, irregular atherosclerotic plaque noted in the left common carotid artery. There is heterogeneous, irregular atherosclerotic plaque noted in the left internal carotid artery. There is intimal thickening but no significant atherosclerotic plaque noted in the left external carotid artery. Antegrade flow is noted in the left vertebral artery. Procedure Carotid Duplex [id number]. This is a Carotid Duplex examination using B-mode, color flow and specral Doppler. Exam performed in department. VL/Carotid Duplex Ultrasound Interpretation Summary Mild (<50%) stenosis right extracranial internal carotid. Mild (<50%) stenosis left extracranial internal carotid. Flow within the vertebral arteries is antegrade bilaterally. Ordering Physician: Derick Ortiz Referring Physician: Bethany Cedeno Performed By: Audrey Watkins, RDWINNIE, RVT
== END | disposition home or self-care (01) ==
LOC: CVS 13:56
PROVIDERS: PCP Internal Medicine; Referring Provider Internal Medicine Cardiovascular Disease; Visit Provider Internal Medicine Cardiovascular Disease
DX: R09.89 Other specified symptoms and signs involving the circulatory and respiratory systems (principal)
CPT/HCPCS: 93880